=== PATIENT | male | born 1945 | race Caucasian/White ===

== ENCOUNTER 2017-01-08 02:21 | Inpatient (IN) ==
[2017-01-08] MEDS ORDERED: 0.9 % Sodium Chloride 1,000 ML IVC SCH (02:30)
--- NOTE | 2017-01-08 02:31 | Internal Med History&Physical ---
Date of Encounter: 01/08/17 Time of Encounter: 02:28 Assessment and Plan (1) Gastroenteritis Current visit: Yes Status: Acute Is having some tenderness in the right lower quadrant. CT scan of the abdomen and pelvis with oral contraceptives to be performed. He denies any severe abdominal pain that would suggest ischemic bowel. However this is in the differential. Will start empirically on Flagyl. Hydrate. Clear liquid diet. Follow CT results of the abdomen and pelvis (2) Non-ST elevation myocardial infarction (NSTEMI), type 2 Current visit: Yes Status: Acute Denies any chest pain. Electrocardiogram without any ST segment shifts. 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 Will continue aspirin beta blockers. Cardiology was notified and will follow the patient. Serial cardiac markers (3) SCOOTER (acute kidney injury) Current visit: Yes Status: Acute Gentle hydration. Watch for signs of overload. He has ischemic cardiomyopathy (4) Diabetes mellitus type 2, insulin dependent Current visit: Yes Status: Acute Sliding scale insulin every 4 hours Internal Medicine - H&P: HPI Chief complaint: diarrhea History of present illness: Mr. Price is a 71 year old male patient with multiple medical problems including coronary artery disease status post CABG 2 years ago, ischemic cardiomyopathy, diabetes mellitus, chronic kidney disease stage IV, was transferred from an outside emergency room after he had presented there with the main complain of diarrhea and weakness. For the past 4 days patient has been having watery diarrhea blackish color approximately 10 bowel movements daily, in addition to nausea nonbloody nonbilious, vomiting, and chills. Patient was getting very weak. He has noted abdominal pain only when he coughs mainly in the right lower quadrant. No sick contexts or recent travel. No recent antibiotic use. He denies any chest pain. Past Med Surg Social Fam HX - Past Medical History Medical history: arthritis, CHF, coronary artery disease, diabetes, hyperlipidemia, hypertension, renal disease Psychiatric history: no psych history - Past Surgical History Surgical History: cholecystectomy, coronary bypass (CABG) - Social History Smoking Status: Former smoker Smokeless Tobacco Status: No Alcohol use: none Drug use: none - Family History Mother Cause of : Heart attack Hx Family Cardiac Disorders: Yes (Heart attack) Hx Family Endocrine Disorder: Yes (DM) Father Hx Family Cardiac Disorders: Yes (Heart attack) Hx Family Cancer: Yes (lung cancer) Internal Medicine - H&P: Meds Allergies ragweed pollen Allergy (Verified 03/04/16 13:14) Cough All Systems PM: A 10-system review of systems was performed and is negative for pertinent findings except as documented above in the HPI. Review of systems: 10 point assistances negative for HPI - Constitutional Vitals: Temp Pulse Resp BP Pulse Ox 98.9 F 109 17 135/84 96 01/08/17 02:02 01/08/17 02:02 01/08/17 02:02 01/08/17 02:02 01/08/17 02:02 Exam: Gen.: patient is alert oriented times 3 not in distress. Cardiac: normal S1 S2 no additional sounds or murmurs chest: fair air entry. no active wheezing. No crackles or bronchial breathing. abdomen: soft nontender nondistended normal bowel sounds neuro: no focal deficit
[2017-01-08] MEDS: MetroNIDAZOLE 500 MG/100 ML 500 MG/100 ML BAG IVPB SCH ×3 (02:56→20:10)
[2017-01-08 03:55] LABS: Hematocrit 33.5 % (37.5-50.1); Hemoglobin 11.1 g/dL (12.9-16.9); Immature Granulocytes % 0.6 % (0-4); Immature Platelets 2.2 % (1.1-6.1); Lymphocytes # 0.3 K/mcL (0.6-4.6); Mean Corpuscular HGB Conc 33.1 g/dL (31.6-35.5); Mean Corpuscular Hemoglobin 28.7 pg (28.0-33.3); Mean Corpuscular Volume 86.6 fL (83.0-100.0); Mean Platelet Volume 10.9 fL (9.4-12.4); Monocytes # 0.2 K/mcL (0.0-1.3); Monocytes % 9.7 %; Neutrophils # 1.3 K/mcL (1.6-8.9); Red Blood Count 3.87 M/mcL (4.19-5.50); Red Cell Distribution Width 13.8 % (11.5-14.5); Segmented Neutrophils % 72.7 %
[2017-01-08 04:07] LABS: Albumin 2.8 g/dL (3.5-5.0); Albumin/Globulin Ratio 0.9 (1.1-2.2); Bilirubin,Total 0.3 mg/dL (0.2-1.2); Calcium 7.6 mg/dL (8.6-10.8); Globulin 3.2 g/dL (2.4-3.5); Magnesium 1.5 mg/dL (1.6-2.6); Potassium 3.8 mEq/L (3.5-4.5)
[2017-01-08 04:14] LABS: Platelet Count 60 K/mcL (140-400)
[2017-01-08 04:16] LABS: Platelet Estimate Decreased (Normal)
[2017-01-08] MEDS ORDERED: Magnesium Sulfate 2 GM in D5% in Water 100 ML IVPB ONE (04:25)
[2017-01-08] MEDS: Insulin LISPRO 300 UNITS/3 ML VIAL SQ SCH ×5 (04:42→20:16)
[2017-01-08] MEDS: Piperacillin/Tazobactam 3.375 GM in D5% in Water (Mini-Bag+) 100 ML IVPB SCH ×3 (04:42→16:58)
--- NOTE | 2017-01-08 08:22 | Cardiology Consult Note ---
Date of Encounter: 01/08/17 Time of Encounter: 08:20 Assessment and Plan (1) Elevated troponin Current Visit: Yes Status: Acute Mild troponin elevation at 0.30 in the setting of renal failure. Demand ischemia. Continue medical management. Continue Plavix, statin, and bb. Restart plavix once able from GI standpoint. (2) CAD (coronary artery disease) Current Visit: Yes Status: Acute H/o 2 vessel CAD. Continue plavix, statin, and bb. He says he does not take asa d/t his CKD. Qualifiers: Coronary Disease-Associated Artery/Lesion type: [place] artery [place] vs. transplanted heart: [place] heart Associated angina: without angina Qualified Code(s): I25.10 - Atherosclerotic heart disease of [place] coronary artery without angina pectoris (3) Ischemic cardiomyopathy Current Visit: Yes Status: Acute Known ischemic cardiomyoapthy. EF 29.3 % on MUGA scan 02/2016. Declined ICD in the past. Currently dehydrated d/t diarrhea. Monitor closely with IV fluid hydration. Hold lasix for now. Restart toprol XL. No rigo-inhibitor d/t SCOOTER. Discussion w patient/family: The assessment and plan as outlined above was discussed with the patient and/or family members who expressed understanding and agreement. All questions were answered. Thank you for involving us in the care of your patient. Please call with any questions. History of Present Illness Consult date: 01/08/17 Requesting physician: Jer Baez Consult reason: Elevated troponin Chief complaint: diarrhea, weakness History of present illness: Mr. Price is a 71 year old male with a history of CAD status post CABG 3 vessels, ischemic cardiomyopathy, CKD, diabetes type II, HTN, and HLD who presented with the c/o diarrhea and weakness for 5 days. Cardiology consulted for elevated troponin at 0.30. Initial workup reveals acute on chronic kidney disease with creatinine up to 4.25. Baseline is 2.1-3.2. CT of the abdomen showed no acute findings. There was liquid stool in the colon seen that was consistent with diarrhea. Bilateral kidney cysts seen. He denies chest pain or SOB. Denies orthopnea, PND, or edema. Recent cardiac testing: MUGA scan 03/24/16: EF 29.3 %. TTE03/04/16: Unable to evaluate LV function. Poor study. Past Med Surg Social Fam HX - Past Medical History Medical history: arthritis, CHF, coronary artery disease, diabetes, hyperlipidemia, hypertension, renal disease Psychiatric history: no psych history - Past Surgical History Surgical History: cholecystectomy, coronary bypass (CABG) - Social History Smoking Status: Former smoker Smokeless Tobacco Status: No Alcohol use: none Drug use: none - Family History Mother Cause of : Heart attack Hx Family Cardiac Disorders: Yes (Heart attack) Hx Family Endocrine Disorder: Yes (DM) Father Hx Family Cardiac Disorders: Yes (Heart attack) Hx Family Cancer: Yes (lung cancer) Medications and Allergies Allergies ragweed pollen Allergy (Verified 03/04/16 13:14) Cough All Systems Review: A 10-system review of systems was performed and is negative for pertinent findings except as documented above in the HPI. Physical Examination Vital Signs, Last 4 Hours Temp Pulse Resp BP Pulse Ox 01/08/17 08:08 98.7 F 95 17 149/76 94 General: Conversant, No Apparent Distress HEENT: Atraumatic, Normocephaly, Mucus Membranes Moist Neck: No JVD, Normal carotid pulses Cardiac: Reg Rate and Rhythm, Normal S1 and S2, No Murmur Lungs: Normal Breath Sounds, No Wheeze, Rales, Rhonchi Neuro: Alert and responsive, No focal deficits noted Abdomen: Soft, Non-Tender Skin: No rashes noted on visualized skin Musculoskeletal: No Chest Wall Tenderness Extremities: No Clubbing, No Cyanosis, No Edema, Normal Pulses Results 01/08/17 03:39 01/08/17 03:39 Lab Results 01/08/17 01/08/17 01/08/17 03:39 03:39 03:39 WBC 1.8 L Hgb 11.1 L Hct 33.5 L Plt Count 60 L Sodium 135 L Potassium 3.8 Chloride 112 H Carbon Dioxide 10 L* BUN 62 H Creatinine 4.25 H Glucose 190 H Calcium 7.6 L Magnesium 1.5 L Total Bilirubin 0.3 AST 26 ALT 28 Alkaline Phosphatase 88 Troponin I 0.30 H* - Imaging and Cardiology Echo: report reviewed - EKG Interpretation EKG results cardiology: personally reviewed Consult Discharge Plan - Plan Referrals: Balaji Verduzco DO [Primary Care Provider] -
[2017-01-08] MEDS: Ringers Solution, Lactated 1,000 ML IVC SCH (08:53)
[2017-01-08] MEDS: Pantoprazole 40 MG VIAL IVP SCH (08:53)
[2017-01-08] MEDS ORDERED: Metoprolol XL (24 HR) Succ 25 MG TAB.ER.24H PO SCH (09:00)
--- NOTE | 2017-01-08 10:16 | Event Note ---
Date of Encounter: 01/08/17 Time of Encounter: 10:16 71-year-old male with history of CAD, diabetes, CK-MB, admitted with acute diarrhea and dehydration. Patient was noted to have slight troponin elevation due to which he was transferred from [place] [facility]. Patient seen and examined at bedside. Reports continued diarrhea but no nausea , emesis, abdominal pain, chest pain or shortness of breath. Chest-S1, S2 heard. Lungs are clear to auscultation. Abdomen-soft, obese, nontender Reviewed labs-serum troponin noted to be around 0.3, creatinine 4.2, magnesium 1.5, bicarbonate 10 Acute diarrhea-likely viral enteritis. Stool WBC, GI panel pending. CT abdomen /pelvis shows liquid stool in the colon but no other acute abnormality. Continue IV hydration and supportive care. When necessary loperamide. Continue IV Zosyn and Flagyl for now. Likely acute kidney injury on CKD- review of previous labs show that patient is creatinine has been worsening over the last few months with the last reading around 3. Currently noted to be around 4.3. Continue IV hydration and monitor closely. We will consider nephrology consult as needed. Avoid nephrotoxic agents. Non-anion gap metabolic acidosis-due to see daily and ongoing diarrhea. We will change fluids to lactated Ringer's due to hyperchloremic acidosis. Continue supportive care, hold off on bicarbonate drip at this time. We will consult nephrology if there is no improvement in serum bicarbonate. Elevated troponin-cardiology consult appreciated. Troponin leak is likely due to demand ischemia due to diarrhea and dehydration. Recommend outpatient follow -up. Continue Plavix, beta kaylee.
[2017-01-08 11:13] LABS: Calcium 7.4 mg/dL (8.6-10.8); Potassium 3.6 mEq/L (3.5-4.5)
[2017-01-08 16:31] LABS: Calcium 7.5 mg/dL (8.6-10.8); Potassium 3.5 mEq/L (3.5-4.5)
[2017-01-08 18:17] LABS: Adenovirus F 40/41 PCR Not detected (Not detect); Astrovirus PCR Not detected (Not detect); C.difficile Toxin A/B by PCR Not detected (Not detect); Campylobacter by PCR Not detected (Not detect); Cryptosporidium by PCR Not detected (Not detect); Cyclospora cayetanensis PCR Not detected (Not detect); E. coli O157 by PCR Not detected (Not detect); Entamoeba histolytica PCR Not detected (Not detect); Enteroaggregative E.coli(EAEC) Not detected (Not detect); Enteropathogenic E.coli(EPEC) Not detected (Not detect); Enterotoxigenic E.coli (ETEC) Not detected (Not detect); Giardia lamblia PCR Not detected (Not detect); Norovirus GI/GII PCR Not detected (Not detect); Plesiomonas shigelloides PCR Not detected (Not detect); Rotavirus A PCR Not detected (Not detect); Salmonella PCR Not detected (Not detect); Sapovirus PCR Not detected (Not detect); Shig/EnteroinvasiveE coli EIEC Not detected (Not detect); Shigalike tox-prod E coli STEC Not detected (Not detect); Vibrio PCR Not detected (Not detect); Vibrio cholerae PCR Not detected (Not detect); Yersinia enterocolitica PCR Not detected (Not detect)
[2017-01-08 22:04] LABS: Calcium 7.4 mg/dL (8.6-10.8); Potassium 3.5 mEq/L (3.5-4.5)
[2017-01-09] MEDS: Insulin LISPRO 300 UNITS/3 ML VIAL SQ SCH ×6 (00:04→21:31)
[2017-01-09] MEDS: Ringers Solution, Lactated 1,000 ML IVC SCH (02:00)
[2017-01-09] MEDS: MetroNIDAZOLE 500 MG/100 ML 500 MG/100 ML BAG IVPB SCH ×2 (02:00→11:39)
[2017-01-09 03:38] LABS: Eosinophils % 0.6 %; Hemoglobin 10.8 g/dL (12.9-16.9)
[2017-01-09 03:39] LABS: Hematocrit 32.3 % (37.5-50.1); Immature Granulocytes % 0.6 % (0-4); Lymphocytes # 0.4 K/mcL (0.6-4.6); Lymphocytes % 26.9 %; Mean Corpuscular HGB Conc 33.4 g/dL (31.6-35.5); Mean Corpuscular Hemoglobin 28.6 pg (28.0-33.3); Mean Corpuscular Volume 85.7 fL (83.0-100.0); Mean Platelet Volume 10.2 fL (9.4-12.4); Monocytes # 0.2 K/mcL (0.0-1.3); Monocytes % 9.4 %; Red Blood Count 3.77 M/mcL (4.19-5.50); Red Cell Distribution Width 13.7 % (11.5-14.5); Segmented Neutrophils % 62.5 %
[2017-01-09 03:48] LABS: Platelet Count 55 K/mcL (140-400)
[2017-01-09 03:56] LABS: Potassium 3.5 mEq/L (3.5-4.5)
[2017-01-09 03:57] LABS: Albumin 2.6 g/dL (3.5-5.0); Calcium 7.5 mg/dL (8.6-10.8); Phosphorous 4.3 mg/dL (2.3-4.7)
[2017-01-09] MEDS: Piperacillin/Tazobactam 3.375 GM in D5% in Water (Mini-Bag+) 100 ML IVPB SCH (03:59)
[2017-01-09] MEDS: Pantoprazole 40 MG VIAL IVP SCH (07:45)
[2017-01-09] MEDS: Metoprolol XL (24 HR) Succ 50 MG TAB.ER.24H PO SCH (07:45)
[2017-01-09] MEDS ORDERED: Sodium Bicarbonate 150 MEQ in D5% in Water 1,000 ML IVC SCH (11:30)
--- NOTE | 2017-01-09 11:48 | Internal Med Progress Note ---
Date of Encounter: 01/09/17 Time of Encounter: 11:45 - Assessment and plan (1) Gastroenteritis Current Visit: Yes Status: Acute Assessment and plan: Patient continues to have diarrhea with no abdominal pain or vomiting or leukocytosis. Possibly viral enteritis. Stool WBC positive but GI serology panel otherwise negative. No risk factors for C. difficile infection. Start loperamide, continue IV hydration and supportive care. (2) Metabolic acidosis Current Visit: Yes Status: Acute Assessment and plan: Noted to have acute on chronic non-anion gap metabolic acidosis in the setting of chronic kidney disease, normal saline infusion, ongoing GI losses with diarrhea. Discussed with nephrology, agree with IV bicarbonate infusion at this time. Full consult to follow. (3) SCOOTER (acute kidney injury) Current Visit: Yes Status: Acute Assessment and plan: Serum creatinine noted to be worsening over the last few months, likely acute kidney injury due to current dehydration along with worsening of chronic kidney disease. Avoid new nephrotoxic agents and continue to monitor serum creatinine closely. (4) Elevated troponin Current Visit: Yes Status: Acute Assessment and plan: Patient is noted to have slight troponin leak around 0.3 with no significant EKG changes or chest pain. Cardiology consult appreciated, this is likely demand ischemia due to dehydration and underlying CKD. Continue telemetry monitoring along with Plavix and beta kaylee. Patient does not take aspirin due to chronic kidney disease. (5) CKD (chronic kidney disease) Current Visit: Yes Status: Chronic Qualifiers: Chronic kidney disease stage: stage 4 (severe) Qualified Code(s): N18.4 - Chronic kidney disease, stage 4 (severe) (6) Diabetes mellitus type 2, insulin dependent Current Visit: Yes Status: Chronic Assessment and plan: Accu-Chek blood glucose monitoring with sliding scale insulin. Diabetic diet as tolerated. (7) CAD (coronary artery disease) Current Visit: Yes Status: Chronic Qualifiers: Coronary Disease-Associated Artery/Lesion type: [place] artery [place] vs. transplanted heart: [place] heart Associated angina: without angina Qualified Code(s): I25.10 - Atherosclerotic heart disease of [place] coronary artery without angina pectoris (8) Ischemic cardiomyopathy Current Visit: Yes Status: Chronic Assessment and plan: Continue home medications, hold Lasix for now. - Subjective Interval history: Feels tired, reports generalized weakness and bodyaches; no nausea, vomiting, abdominal pain; continues to have at least 12-15 episodes of watery diarrhea per day; - Constitutional Vitals: Temp Pulse Resp BP Pulse Ox 98.1 F 75 16 130/57 95 01/09/17 11:10 01/09/17 11:10 01/09/17 11:10 01/09/17 11:10 01/09/17 11:10 General appearance: Present: A&O X 3, answers questions appropriately - Respiratory Respiratory exam: Present: CTAB, wheezes (mild end-expiratory wheezing at left base). Absent: accessory muscle use, rales, rhonchi - Cardiovascular Cardiovascular exam: Present: RRR, +S1, +S2. Absent: diastolic murmur, gallop, rubs, systolic murmur - GI/Abdominal GI/Abdominal exam: Present: normal bowel sounds, soft, no peritoneal signs. Absent: distended, tenderness - Extremities Exam Extremities exam: Present: full ROM, warm, radial pulses palpable and symetrical. Absent: calf tenderness, cyanotic, pedal edema - Neurological Exam Neurological exam: Present: CN II-XII intact, oriented X3, no focal deficits. Absent: pronater drift, facial droop, speech deficit Internal Medicine: Result - Labs CBC & Chem 7: 01/09/17 03:25 01/09/17 03:25 Labs: Short CBC 01/09/17 Range/Units 03:25 WBC 1.6 L (4.3-11.1) K/mcL Hgb 10.8 L (12.9-16.9) g/dL Hct 32.3 L (37.5-50.1) % Plt Count 55 L (140-400) K/mcL Neutrophils # 1.0 L (1.6-8.9) K/mcL BMP 01/08/17 01/08/17 01/09/17 15:53 21:24 03:25 Sodium 134 L 135 L 136 Potassium 3.5 3.5 3.5 Chloride 111 H 111 H 115 H Carbon Dioxide 12 L 13 L 11 L BUN 61 H 59 H 56 H Creatinine 4.35 H 4.29 H 4.19 H Glucose 183 H 145 H 137 H Calcium 7.5 L 7.4 L 7.5 L Liver Function 01/09/17 Range/Units 03:25 Albumin 2.6 L (3.5-5.0) g/dL Consult Discharge Plan - Plan Referrals: Balaji Verduzco DO [Primary Care Provider] -
--- NOTE | 2017-01-09 11:59 | Nephrology Consult Note ---
Date of Encounter: 01/09/17 Time of Encounter: 12:00 Assessment and Plan (1) SCOOTER (acute kidney injury) Current Visit: Yes Status: Acute Non-oliguric SCOOTER with acute on chronic metaolic acidosis. Worsened by both diarrhea and dilutional acidosis from the 0.9% saline. Agree with stopping the LR and will implement a bicarb gtt. He is not hyperkalemic currently, though he has a long hx of it. Which lead to stopping his prior JOSE L (Ramipril), which he was taking for known proteinuria. No urgent indications for WEB OPERATIONS LEAD today, but in the past, he has voiced that he's more interested in PD rather than HD. Continue to follow a renal protective strategy. Thank you for consulting [facility]. (2) Chronic kidney disease (CKD), stage IV (severe) Current Visit: Yes Status: Chronic (3) Proteinuria Current Visit: Yes Status: Chronic Qualifiers: Proteinuria type: persistent Qualified Code(s): R80.1 - Persistent proteinuria, unspecified (4) Diabetes mellitus type 2, insulin dependent Current Visit: Yes Status: Chronic (5) Gastroenteritis Current Visit: Yes Status: Acute (6) Metabolic acidosis Current Visit: Yes Status: Acute History of Present Illness - Reason for Consult Consult date: 01/09/17 Acute Kidney Injury, metabolic acidosis Requesting physician: Martha Paul - Chief Complaint Met acidosis with SCOOTER on CKD IV - History of Present Illness 71 y/o WM with a pmh of T2DM for 20+ yr, CAD and HTN and et al who presented with several days of diarrhea. He recently saw me in my CKD clinic and we discussed his dialysis options. He had voiced interest in PD rather than HD. Was taken off Ramipril several months ago due to recurrent hyperkalemia. He had been treated with 0.9% saline for the volume depletion/SCOOTER from diarrhea, but yet his acidosis continued to worsen with hyperchloremia. 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 He said that last week, he had a leaking pipe under his house and thinks there may have been label sewer water leaking too. He did fix the leak but later developed diarrhea. He denied having contacts with diarrhea. He is still having diarrhea several times per day. Denied abd pain or F/C, rash or blooding diarrhea. Past Med Surg Social Fam HX - Past Medical History Medical history: arthritis, CHF, coronary artery disease, diabetes, hyperlipidemia, hypertension, renal disease Psychiatric history: no psych history - Past Surgical History Surgical History: cholecystectomy, coronary bypass (CABG) - Social History Smoking Status: Former smoker Smokeless Tobacco Status: No Alcohol use: none Drug use: none - Family History Mother Cause of : Heart attack Hx Family Cardiac Disorders: Yes (Heart attack) Hx Family Endocrine Disorder: Yes (DM) Father Hx Family Cardiac Disorders: Yes (Heart attack) Hx Family Cancer: Yes (lung cancer) Medications and Allergies Atorvastatin [Lipitor] 40 mg PO HS 01/08/17 [History] Clopidogrel [Plavix] 75 mg PO DAILY 01/08/17 [History] Furosemide [Lasix] 40 mg PO BID 01/08/17 [History] Insulin ASPART [NovoLOG] 15 unit SQ TID 01/08/17 [History] Insulin Glargine [Lantus] 30 unit SQ HS 01/08/17 [History] Loratadine [Claritin] 10 mg PO DAILY 01/08/17 [History] Metoprolol XL (24 HR) Succ [Toprol XL] 100 mg PO DAILY 01/08/17 [History] Nitroglycerin [Nitrostat] 0.4 mg SL Q5M PRN 01/08/17 [History] Allergies ragweed pollen Allergy (Verified 01/08/17 11:45) Cough Review of Systems All Systems: reviewed and no additional remarkable complaints except as stated Exam - Vital Signs Vital signs: Initial Vital Signs Temp Pulse Resp BP Pulse Ox 98.9 F 109 17 135/84 96 01/08/17 02:02 01/08/17 02:02 01/08/17 02:02 01/08/17 02:02 01/08/17 02:02 Vital Signs - Last 8 Hours Temp Pulse Resp BP Pulse Ox 01/09/17 11:10 98.1 F 75 16 130/57 95 01/09/17 07:52 97 01/09/17 07:12 98.6 F 80 16 158/64 97 Intake and Output 01/08/17 01/09/17 01/09/17 23:59 07:59 15:59 Intake Total 320 / 320 1200 / 1200 600 / 600 Balance 320 / 320 1200 / 1200 600 / 600 Intake: IV Fluids 100 / 100 1200 / 1200 Lactated Ringers 1,000 ML 1000 / 1000 @ 60 mls/hr IVC .[id number] [facility] Rx#:[id number] Flagyl Premix 500 MG/100 200 / 200 ML 500 mg In 100 ml @ 100 mls/hr IVPB Q8H [facility] Rx#: [id number] Zosyn 3.375 GM In 100 / 100 Dextrose 5% (Minibag+) 100 ML 100 ML @ 25 mls/hr IVPB Q12H [facility] Rx#: [id number] Oral 220 / 220 600 / 600 Other: Meal Dinner Breakfast Percent of Meal Consumed 0% Stool Size Small Stool Consistency loose Stool Color Brown Green # Voids 1 # Bowel Movements 1 Weight 118.025 kg Blood Glucose* 130 129 162 Patient Weight 01/09/17 23:59 Weight 118.025 kg - General Appearance General appearance: well-developed, well-nourished, obese, fatigue EENT: ATNC, PERRL, mucous membranes dry Neck: supple Respiratory: clear Cardiology: no edema, regular rate, regular rhythm, normal S1, normal S2 Gastrointestinal: normoactive bowel sounds, no tenderness Integumentary: no rash, warm and dry Neurologic: no focal deficit, no asterixis, alert and oriented x3 Musculoskeletal: no deformities, no erythema, no cyanosis Psychiatric: mood/affect appropriate, cooperative Results - Lab Results 01/09/17 03:25 01/09/17 03:25 Most recent lab results Calcium 7.5 mg/dL (8.6-10.8) L 01/09/17 03:25 Phosphorus 4.3 mg/dL (2.3-4.7) 01/09/17 03:25 Magnesium 1.5 mg/dL (1.6-2.6) L 01/08/17 03:39 I reviewed the above auto generated data including clinic and hospital progress notes, labs, meds, vitals, imaging and etc. Consult Discharge Plan - Plan Referrals: Balaji Verduzco DO [Primary Care Provider] -
[2017-01-10] MEDS: Insulin LISPRO 300 UNITS/3 ML VIAL SQ SCH ×6 (00:57→21:12)
[2017-01-10 05:59] LABS: Basophils % 0.5 %; Eosinophils # 0.1 K/mcL (0.0-0.6); Eosinophils % 2.6 %; Hematocrit 31.2 % (37.5-50.1); Hemoglobin 10.6 g/dL (12.9-16.9); Immature Granulocytes % 0.5 % (0-4); Lymphocytes # 0.7 K/mcL (0.6-4.6); Mean Corpuscular Hemoglobin 28.6 pg (28.0-33.3); Mean Corpuscular Volume 84.3 fL (83.0-100.0); Mean Platelet Volume 10.7 fL (9.4-12.4); Monocytes # 0.1 K/mcL (0.0-1.3); Monocytes % 6.9 %; Red Cell Distribution Width 13.6 % (11.5-14.5); Segmented Neutrophils % 52.5 %
[2017-01-10 06:04] LABS: Platelet Count 60 K/mcL (140-400)
[2017-01-10 06:06] LABS: Bilirubin,Urine Negative (Negative); Blood,Urine Moderate (Negative); Clarity,Urine Clear (Clear); Color,Urine Yellow (Yellow); Glucose,Urine (UA) 100 mg/dL (Normal); Ketones,Urine Negative (Negative); Leukocyte Esterase,Urine Negative (Negative); Nitrite,Urine Negative (Negative); Protein,Urine >=1000 mg/dL (Neg-Trace); Specific Gravity,Urine 1.016 (1.010-1.025); Urobilinogen,Urine Normal (Normal)
[2017-01-10 06:09] LABS: Bacteria,Urine None Seen per hpf (None-Few); Hyaline Casts,Urine None Seen per lpf (None-Few); Squamous Epithelial Cell,Urine Many per lpf (None-Few); WBC,Urine 0-3 per hpf (0-3)
[2017-01-10 06:14] LABS: Albumin 2.5 g/dL (3.5-5.0); Calcium 7.3 mg/dL (8.6-10.8); Phosphorous 3.4 mg/dL (2.3-4.7); Potassium 3.3 mEq/L (3.5-4.5); Uric Acid 7.1 mg/dL (3.5-7.2)
[2017-01-10 06:26] LABS: Platelet Estimate Decreased (Normal); Reactive Lymphocytes Present (Not Present)
[2017-01-10] MEDS: Pantoprazole 40 MG VIAL IVP SCH (08:15)
[2017-01-10] MEDS: Metoprolol XL (24 HR) Succ 50 MG TAB.ER.24H PO SCH (08:15)
[2017-01-10] MEDS ORDERED: Ondansetron 4 MG/2 ML VIAL IVP PRN (08:19)
[2017-01-10] MEDS ORDERED: Potassium Chloride Elixir 20 MEQ/15 ML UDC PO ONE (08:54)
--- NOTE | 2017-01-10 09:29 | Internal Med Progress Note ---
Date of Encounter: 01/10/17 Time of Encounter: 09:27 - Assessment and plan (1) Gastroenteritis Current Visit: Yes Status: Acute Assessment and plan: Improving diarrhea; continue supportive care and PRN Loperamide. Soft diet as tolerated. Possibly viral enteritis. Stool WBC positive but GI serology panel otherwise negative. No risk factors for C. difficile infection. (2) Metabolic acidosis Current Visit: Yes Status: Acute Assessment and plan: Acute on chronic non-anion gap metabolic acidosis in the setting of chronic kidney disease, normal saline infusion, ongoing GI losses with diarrhea. Serum bicarbonate improved to 17 today. Off bicarbonate drip. Nephrology follow-up noted, plan to start oral sodium bicarbonate. (3) SCOOTER (acute kidney injury) Current Visit: Yes Status: Acute Assessment and plan: Serum creatinine stable at this time, at new baseline. Nephrology follow-up noted, likely initiation of dialysis as an outpatient. Avoid new nephrotoxic agents and continue to monitor serum creatinine closely. (4) Elevated troponin Current Visit: Yes Status: Resolved Assessment and plan: Patient is noted to have slight troponin leak around 0.3 with no significant EKG changes or chest pain. Cardiology consult appreciated, this is likely demand ischemia due to dehydration and underlying CKD. Continue telemetry monitoring along with Plavix and beta kaylee. Patient does not take aspirin due to chronic kidney disease. (5) CKD (chronic kidney disease) Current Visit: Yes Status: Chronic Qualifiers: Chronic kidney disease stage: stage 4 (severe) Qualified Code(s): N18.4 - Chronic kidney disease, stage 4 (severe) (6) Diabetes mellitus type 2, insulin dependent Current Visit: Yes Status: Chronic Assessment and plan: Accu-Chek blood glucose monitoring with sliding scale insulin. Diabetic diet as tolerated. (7) CAD (coronary artery disease) Current Visit: Yes Status: Chronic Qualifiers: Coronary Disease-Associated Artery/Lesion type: [place] artery [place] vs. transplanted heart: [place] heart Associated angina: without angina Qualified Code(s): I25.10 - Atherosclerotic heart disease of [place] coronary artery without angina pectoris (8) Ischemic cardiomyopathy Current Visit: Yes Status: Chronic Assessment and plan: Continue home medications, hold Lasix for now. Discontinued IV hydration, monitor for signs of volume overload. Plan to resume Lasix at the time of discharge. (9) Leukopenia Current Visit: Yes Status: Acute Assessment and plan: Uncertain etiology. Does not seem to be septic with any clear source of infection. WBC count and platelet count from August 2016 noted to be within normal limits. Hematology consult. Qualifiers: Leukopenia type: other Qualified Code(s): D72.818 - Other decreased white blood cell count (10) Thrombocytopenia Current Visit: Yes Status: Acute Assessment and plan: Uncertain etiology. Plan as above for leukopenia. - Subjective Interval history: Improved diarrhea, still has a few bowel movements but much improved; some nausea this morning, now subsided, no vomiting/abdominal pain; - Constitutional Vitals: Temp Pulse Resp BP Pulse Ox 98.1 F 69 17 120/61 94 01/10/17 07:11 01/10/17 07:11 01/10/17 07:11 01/10/17 07:11 01/10/17 08:42 General appearance: Present: A&O X 3, answers questions appropriately - Respiratory Respiratory exam: Present: CTAB. Absent: accessory muscle use, rales, rhonchi, wheezes - Cardiovascular Cardiovascular exam: Present: RRR, +S1, +S2. Absent: diastolic murmur, gallop, rubs, systolic murmur - GI/Abdominal GI/Abdominal exam: Present: normal bowel sounds, soft (obese), no peritoneal signs. Absent: distended, tenderness - Extremities Exam Extremities exam: Present: full ROM, warm, radial pulses palpable and symetrical. Absent: calf tenderness, cyanotic, pedal edema Internal Medicine: Result - Labs CBC & Chem 7: 01/10/17 04:42 01/10/17 04:42 Labs: Short CBC 01/10/17 Range/Units 04:42 WBC 1.9 L (4.3-11.1) K/mcL Hgb 10.6 L (12.9-16.9) g/dL Hct 31.2 L (37.5-50.1) % Plt Count 60 L (140-400) K/mcL Neutrophils # 1.0 L (1.6-8.9) K/mcL BMP 01/10/17 04:42 Sodium 140 Potassium 3.3 L Chloride 112 H Carbon Dioxide 17 L BUN 49 H Creatinine 4.03 H Glucose 131 H Calcium 7.3 L Liver Function 01/10/17 Range/Units 04:42 Albumin 2.5 L (3.5-5.0) g/dL Urine 01/10/17 Range/Units 05:11 Urine Color Yellow (Yellow) Urine Clarity Clear (Clear) Urine pH 6.0 (5.0-8.0) pH Units Ur Specific [place] 1.016 (1.010-1.025) Urine Protein >=1000 H (Neg-Trace) mg/dL Urine Glucose (UA) 100 H (Normal) mg/dL - VTE Documentation of Mechanical Device: Graduated compression elastic hosiery Consult Discharge Plan - Plan Referrals: Balaji Verduzco DO [Primary Care Provider] - 01/17/17 12:40 pm (Please follow up as schedule..)
--- NOTE | 2017-01-10 11:32 | Nephrology Progress Note ---
Date of Encounter: 01/10/17 Time of Encounter: 11:30 - Assessment and Plan (1) Gastroenteritis Current Visit: Yes Status: Acute Diarrhea is improving. Per primary team. He is tolerating some Po intake. (2) SCOOTER (acute kidney injury) Current Visit: Yes Status: Acute SCOOTER on CKD. Baseline renal function is Stage 4. He is denying uremic symptoms at this time. His nausea is likely related to his gastroenteritis and he states it is improving. (3) Diabetes mellitus type 2, insulin dependent Current Visit: Yes Status: Chronic Per primary team. (4) Metabolic acidosis Current Visit: Yes Status: Acute Improved with iv bicarb. Will start oral bicarbonate. Likely multifactorial, but mostly secondary to diarrhea. (5) Chronic kidney disease (CKD), stage IV (severe) Current Visit: Yes Status: Chronic With underlying progression. Per Dr. Kenney's note patient would like CAPD if dialysis is needed. Subjective Principal diagnosis: SCOOTER /CKD4 Interval history: Mr. Price feels better this am. He tolerated his breakfast. He states his diarrhea is improving. His ROS otherwise seems stable or negative. Objective - Vital Signs Vital signs: Vital Signs Temp Pulse Resp BP Pulse Ox 01/10/17 11:16 97.9 F 76 18 126/66 94 01/10/17 08:42 94 01/10/17 07:11 98.1 F 69 17 120/61 94 01/10/17 04:58 99.8 F H 80 16 124/69 95 01/10/17 00:36 98.9 F 60 16 103/61 95 01/09/17 20:51 98.7 F 80 94 150/67 01/09/17 19:46 98 01/09/17 15:50 98.3 F 74 16 124/67 97 Intake and Output 01/09/17 01/10/17 01/10/17 23:59 07:59 15:59 Output Total 200 / 200 0 / 0 Balance -200 / -200 0 / 0 Output: Urine 200 / 200 0 / 0 Other: Meal Breakfast Weight 119.204 kg Blood Glucose* 153 140 171 Patient Weight 01/10/17 23:59 Weight 119.204 kg - General Appearance General appearance: Present: well-developed, well-nourished, obese EENT: Present: ATNC Neck: Present: supple Respiratory: Present: clear Cardiology: Present: no edema, regular rate, regular rhythm Gastrointestinal: Present: no tenderness, obese Integumentary: Present: warm and dry Neurologic: Present: alert and oriented x3 Musculoskeletal: Present: no cyanosis Psychiatric: Present: mood/affect appropriate - Lab 01/10/17 04:42 01/10/17 04:42 Most recent lab results Calcium 7.3 mg/dL (8.6-10.8) L 01/10/17 04:42 Phosphorus 3.4 mg/dL (2.3-4.7) 01/10/17 04:42 Magnesium 1.5 mg/dL (1.6-2.6) L 01/08/17 03:39 - VTE Documentation of Mechanical Device: Graduated compression elastic hosiery Consult Discharge Plan - Plan Referrals: Balaji Verduzco DO [Primary Care Provider] - 01/17/17 12:40 pm (Please follow up as schedule..)
[2017-01-10 16:19] LABS: Immature Reticulocyte % 11.1 % (11.0-38.0); Retculocyte # 0.05 M/mcL (0.05-0.10); Reticulocyte % 1.3 % (1.6-2.8)
[2017-01-10 16:39] LABS: Prothrombin Time 10.8 Seconds (9.4-12.1)
--- NOTE | 2017-01-10 17:03 | Oncology Inp Consult Note ---
<Migdalia Farrell - Last Filed: 01/10/17 16:59> Date of Encounter: 01/10/17 Time of Encounter: 14:00 Assessment and Plan (1) Thrombocytopenia Problem details: Status: Acute Assessment and plan: Thrombocytopenia and leukopenia-peripheral smear indicates normal leukocyte morphology no blasts or atypical promyelocytes. Erythrocytes indicate normocytic anemia with rare schistocytes. Platelets there is no platelet clumping however from thrombocytopenias present. The cause of pancytopenia is uncertain based on the review of the blood smear. The lab tests have been ordered fibrinogen, hepatitis panel, HIV, LDH, pro-time and INR and PTT inhibitor. Pancytopenia could be related to recent infection. Dr. Byers, hematology oncology will see the patient also. - Data of Consult Patient: new to practice Consult date: 01/10/17 Requesting Physician: Martha Paul MD Primary Care Provider: Balaji Verduzco Family Provider: Dr. Ino Verduzco in [place]. - Consult Narrative Reason for consult: neutopenia and thrombocytopenia History of present illness: Mr. Price is a 71 year old male medical problems including arthritis, congestive heart failure, coronary artery disease, hyperlipidemia, hypertension , stage IV renal disease, diabetes and a history of triple bypass. He was recently admitted from an outside facility with diarrhea which has been ongoing for 4 days and progressive weakness. He reported that during that time his liquid stools were black however he has been on iron supplementation, he also reported having abdominal soreness and nausea and also chilling but denied having elevated temperature. Primary care provider is Dr. Ino Verduzco from [facility]. Patient reports that he sees cardiology at a D and on a routine basis and is followed by Dr. Spring in nephrology. We have been asked to see the patient regarding neutropenia and thrombocytopenia. At the time of admission his neutrophils were 1.8 today that it they have improved to 1.9. On 08/27/2016 in review of chart it was 6.6. Hemoglobin on admission 11.1, today 10.6, in August 1999 1711.1. Platelets at times admission were 60,000 days then dropped to 50,000 today however they have improved to 60,000 however in August 2016 are 135. In reviewing his records in [facility] 2010 his platelets were low at 130 and there was one episode in 2009 where his white blood cell count was 4.0 the other times they were within normal range. Patient was seen and examined at bedside. He reports that his diarrhea has nearly resolved and he is no longer having nausea. He denies a history of neutropenia or thrombocytopenia. Home medications include Lantus, Lipitor, Nitrostat, Lasix, NovoLog, metoprolol , Claritin and Plavix. Past Med Surg Social Fam HX - Past Medical History Medical history: arthritis, cardiomyopathy (MUGA scan in February 2016 indicate an ejection fraction of 29%.), CHF, coronary artery disease, diabetes, hyperlipidemia, hypertension, renal disease (Stage IV), other (Hypertension) Psychiatric history: no psych history - Past Surgical History Surgical History: cholecystectomy, coronary bypass (CABG) - Social History Smoking Status: Former smoker Smokeless Tobacco Status: No Alcohol use: none Drug use: none - Family History Mother Cause of : Heart attack Hx Family Cardiac Disorders: Yes (Heart attack) Hx Family Endocrine Disorder: Yes (DM) Father Hx Family Cardiac Disorders: Yes (Heart attack) Hx Family Cancer: Yes (lung cancer) - Additional Family History Additional family history: Sister with cancer of the gallbladder. Medications and Allergies Atorvastatin [Lipitor] 40 mg PO HS 01/08/17 [History] Clopidogrel [Plavix] 75 mg PO DAILY 01/08/17 [History] Furosemide [Lasix] 40 mg PO BID 01/08/17 [History] Insulin ASPART [NovoLOG] 15 unit SQ TID 01/08/17 [History] Insulin Glargine [Lantus] 30 unit SQ HS 01/08/17 [History] Loratadine [Claritin] 10 mg PO DAILY 01/08/17 [History] Metoprolol XL (24 HR) Succ [Toprol XL] 100 mg PO DAILY 01/08/17 [History] Nitroglycerin [Nitrostat] 0.4 mg SL Q5M PRN 01/08/17 [History] Allergies ragweed pollen Allergy (Verified 01/08/17 11:45) Cough All systems: reviewed and no additional remarkable complaints except as stated Constitutional: Present: as per HPI Additional comments: Reports having abdominal soreness but states that has improved. He also reports that his stool was black in color but he has been on iron supplement. Hematologic/Lymphatic: Present: easy bruising Additional comments: Has been on Plavix since his triple bypass. Oncology - Exam - Constitutional Vitals: Temp Pulse Resp BP Pulse Ox 98.1 F 71 17 142/53 93 01/10/17 15:21 01/10/17 15:21 01/10/17 15:21 01/10/17 15:21 01/10/17 15:21 General appearance: cooperative, morbidly obese, no acute distress - Head Head exam: Present: normocephalic - ENT ENT exam: Present: mucous membranes dry - Neck Neck exam: Present: normal inspection - Respiratory Respiratory exam: Present: CTAB - Cardiovascular Cardiovascular exam: Present: RRR - GI/Abdominal GI/Abdominal exam: Present: normal bowel sounds, soft (Nontender) - Extremities Exam Extremities exam: Present: normal capillary refill, normal inspection (No edema) - Neurological Exam Neurological exam: Present: alert, oriented X3 - Psychiatric Psychiatric exam: Present: normal affect, normal mood - Skin Additional comments: Skin tags noted in bilateral axilla Oncology - Results - Labs Labs: Short CBC 01/10/17 Range/Units 04:42 WBC 1.9 L (4.3-11.1) K/mcL Hgb 10.6 L (12.9-16.9) g/dL Hct 31.2 L (37.5-50.1) % Plt Count 60 L (140-400) K/mcL Neutrophils # 1.0 L (1.6-8.9) K/mcL BMP 01/10/17 04:42 Sodium 140 Potassium 3.3 L Chloride 112 H Carbon Dioxide 17 L BUN 49 H Creatinine 4.03 H Glucose 131 H Calcium 7.3 L Liver Function 01/10/17 Range/Units 04:42 Albumin 2.5 L (3.5-5.0) g/dL Urine 01/10/17 Range/Units 05:11 Urine Color Yellow (Yellow) Urine Clarity Clear (Clear) Urine pH 6.0 (5.0-8.0) pH Units Ur Specific [place] 1.016 (1.010-1.025) Urine Protein >=1000 H (Neg-Trace) mg/dL Urine Glucose (UA) 100 H (Normal) mg/dL Consult Discharge Plan - Plan Referrals: Balaji Verduzco DO [Primary Care Provider] - 01/17/17 12:40 pm (Please follow up as schedule..) <Clovis Byers - Last Filed: 01/11/17 08:34> Date of Encounter: 01/11/17 Time of Encounter: 07:30 Assessment and Plan (1) Leukopenia Status: Acute Assessment and plan: I have seen and examined Mr. Price and agree with the assessment and plan made by Ms. Farrell. I met with Mr. Price had chance review labs ordered yesterday. He is without evidence of DIC or hepatitis that could be attributed to his pancytopenia. It is likely his underlying colitis is causing bone marrow suppression and resultant pancytopenia. I am happy report his counts are stable to improving and his diarrhea has resolved. As he is feeling better, I think it is prudent for him to be discharged as seen fit by the primary team and I will schedule follow-up in 2-3 weeks in my office to follow cytopenias. Please call has a cardiac concerns or questions. My cell phone [phone] Qualifiers: Leukopenia type: other Qualified Code(s): D72.818 - Other decreased white blood cell count - Data of Consult Requesting Physician: Meera Bland MD Primary Care Provider: Balaji Verduzco - Consult Narrative History of present illness: Mr. Price is a 71 year old male Oncology - Exam - Constitutional Vitals: Temp Pulse Resp BP Pulse Ox 98.9 F 78 14 122/60 93 01/11/17 08:26 01/11/17 08:26 01/11/17 08:26 01/11/17 08:26 01/11/17 08:26 Oncology - Results - Labs Labs: Short CBC 01/11/17 Range/Units 04:58 WBC 2.1 L (4.3-11.1) K/mcL Hgb 9.9 L (12.9-16.9) g/dL Hct 29.2 L (37.5-50.1) % Plt Count 58 L (140-400) K/mcL Neutrophils # 0.8 L (1.6-8.9) K/mcL BMP 01/11/17 04:58 Sodium 141 Potassium 3.5 Chloride 114 H Carbon Dioxide 20 BUN 46 H Creatinine 3.72 H Glucose 130 H Calcium 7.3 L Liver Function 01/11/17 Range/Units 04:58 Albumin 2.3 L (3.5-5.0) g/dL
[2017-01-10 19:47] LABS: Hepatitis B Surface Antigen Nonreactive (Nonreactive); Hepatitis C Virus Antibody Nonreactive (Nonreactive)
[2017-01-11] MEDS: Insulin LISPRO 300 UNITS/3 ML VIAL SQ SCH ×3 (00:30→08:30)
[2017-01-11 05:09] LABS: Eosinophils # 0.1 K/mcL (0.0-0.6); Eosinophils % 2.9 %; Hematocrit 29.2 % (37.5-50.1); Hemoglobin 9.9 g/dL (12.9-16.9); Immature Granulocytes % 0.5 % (0-4); Lymphocytes # 1.1 K/mcL (0.6-4.6); Lymphocytes % 51.9 %; Mean Corpuscular HGB Conc 33.9 g/dL (31.6-35.5); Mean Corpuscular Hemoglobin 28.8 pg (28.0-33.3); Mean Corpuscular Volume 84.9 fL (83.0-100.0); Mean Platelet Volume 10.9 fL (9.4-12.4); Monocytes # 0.2 K/mcL (0.0-1.3); Monocytes % 7.8 %; Neutrophils # 0.8 K/mcL (1.6-8.9); Red Blood Count 3.44 M/mcL (4.19-5.50); Red Cell Distribution Width 13.6 % (11.5-14.5); Segmented Neutrophils % 36.9 %
[2017-01-11 05:10] LABS: Platelet Count 58 K/mcL (140-400)
[2017-01-11 05:23] LABS: Albumin 2.3 g/dL (3.5-5.0); Calcium 7.3 mg/dL (8.6-10.8); Phosphorous 3.6 mg/dL (2.3-4.7); Potassium 3.5 mEq/L (3.5-4.5)
[2017-01-11 05:30] LABS: Platelet Estimate Decreased (Normal)
[2017-01-11 08:27] VITALS: BP 122/60
--- NOTE | 2017-01-11 09:07 | Discharge Summary ---
Date of Encounter: 01/11/17 Time of Encounter: 08:30 - Discharge Diagnosis (1) Gastroenteritis Priority: Primary Status: Acute (2) SCOOTER (acute kidney injury) Priority: Primary Status: Acute (3) Diabetes mellitus type 2, insulin dependent Priority: Secondary Status: Chronic (4) Elevated troponin Priority: Primary Status: Resolved (5) CAD (coronary artery disease) Priority: Secondary Status: Chronic Qualifiers: Coronary Disease-Associated Artery/Lesion type: [place] artery [place] vs. transplanted heart: [place] heart Associated angina: without angina Qualified Code(s): I25.10 - Atherosclerotic heart disease of [place] coronary artery without angina pectoris (6) Metabolic acidosis Priority: Primary Status: Acute (7) Chronic kidney disease (CKD), stage IV (severe) Priority: Secondary Status: Chronic (8) Leukopenia Priority: Primary Status: Acute Qualifiers: Leukopenia type: other Qualified Code(s): D72.818 - Other decreased white blood cell count (9) Thrombocytopenia Priority: Primary Status: Acute - Discharge Medications Prescriptions: Loperamide [Imodium] 2 mg PO Q4HR PRN #30 capsule PRN Reason: Diarrhea Sodium Bicarbonate 650 mg PO TID #120 tablet Home Medications: Atorvastatin [Lipitor] 40 mg PO HS 01/08/17 [History] Clopidogrel [Plavix] 75 mg PO DAILY 01/08/17 [History] Furosemide [Lasix] 40 mg PO BID 01/08/17 [History] Insulin ASPART [NovoLOG] 15 unit SQ TID 01/08/17 [History] Insulin Glargine [Lantus] 30 unit SQ HS 01/08/17 [History] Loratadine [Claritin] 10 mg PO DAILY 01/08/17 [History] Metoprolol XL (24 HR) Succ [Toprol Xl] 100 mg PO DAILY 01/08/17 [History] Nitroglycerin [Nitrostat] 0.4 mg SL Q5M PRN 01/08/17 [History] Loperamide [Imodium] 2 mg PO Q4HR PRN #30 capsule 01/11/17 [Rx] Sodium Bicarbonate 650 mg PO TID #120 tablet 01/11/17 [Rx] Allergies/Adverse Reactions: Allergies ragweed pollen Allergy (Verified 01/08/17 11:45) Cough - Notes to Outpatient Provider 1. Pt has leukocytopenia and thrombocytopenia, hematology saw pt and consider infection induced (WBC 2.1k, platelet 58k today). Some hematology workup ( fibrinogen, hepatitis panel, HIV, LDH, pro-time and INR and PTT inhibitor) send , results pending, plz f/u. Date of admission: 01/08/17 02:21 Primary care physician: Balaji Verduzco Consults: 01/08/17 02:21 Consult to Cardiology [CONS] Routine Comment: Consulting Provider: Cardiology [place] Reason for Consult: NSTEMI Call Completed: Yes 01/09/17 11:38 Consult to Nephrology [CONS] Routine Consulting Provider: Kidney [facility]/KELLY/DANITZA/SPARKLE Reason for Consult: Worsening metabolic acidosis with diarrhea Call Completed: Yes 01/10/17 09:20 Consult to Occupational Therapy [CONS] Routine Comment: Evaluate, develop and implement POC Reason for Consult: Generalized weakness Consult to Physical Therapy [CONS] Routine Comment: Evaluate, develop and implement POC Reason for Consult: Generalized weakness 01/10/17 09:23 Consult to Oncology Hematology [CONS] Routine Consulting Provider: Migdalia Farrell Reason for Consult: Leukopenia, thrombocytopenia Call Completed: Yes Discharging clinician: Meera Bland Anticipated date of discharge: 01/11/17 - Patient Status Disposition: Home, Self-Care Condition: Good Functional capacity at discharge: independent ambulation Overall status at discharge: patient is back to baseline - Discharge Instructions Follow Up With: Clovis Byers MD [Partnered Physician] - 01/28/17 10:00 am (Please follow up as schedule... Dr. Byers Cellphone number [phone]) Balaji Verduzco DO [Primary Care Provider] - 01/17/17 12:40 pm (Please follow up as schedule..) Demarcus Kenney DO [Partnered Physician] - 01/26/17 - Diet and Activity Activity: increase activity as tolerated Diet: advance to your usual diet, diabetic diet, low salt diet Interval History: Mr. Price is a 71 year old male patient with multiple medical problems including coronary artery disease status post CABG 2 years ago, ischemic cardiomyopathy, diabetes mellitus, chronic kidney disease stage IV, was transferred from an outside emergency room after he had presented there with the main complain of diarrhea and weakness. For the past 4 days patient has been having watery diarrhea blackish color approximately 10 bowel movements daily, in addition to nausea nonbloody nonbilious, vomiting, and chills. Patient was getting very weak. He has noted abdominal pain only when he coughs mainly in the right lower quadrant. No sick contexts or recent travel. No recent antibiotic use. He denies any chest pain. Hospital course: Mr. Price is a 71 year old male admitted for diarrhea and vomitting. Lab also shows metabolic acidosis. Stool test negative to C Diff. Pt was considered viral gastroenteritis and placed on IVF and symptomatic management. Nephrology consult called and pt was placed on bicarbonate drip, then switch to po bicarbonate. After treatment, pt's diarrhea has improved. Had two BM in last 24 hours and stool is soft but formed. His metabolic acidosis also improved with bicarbonate 20 today. Pt developped leukocytopenia and thrombocytopenia on admission, onco consult saw pt and consider infection caused cytopenia. His WBC and platelet level is stable (WBC 2.1k, platelet 58 today). Pt can be discharge home and f/u as outpatient. I saw and examined pt today, feels fine, mild generalized weak, has good appetite, no nausea. vitals stable. Pt will d/c home and follow up with PCP, nephro and hematology as outpatient. - Time Spent with Patient Total time spent providing and/or coordinating discharge services: 40 min Greater than 30 minutes - Constitutional Vitals: Temp Pulse Resp BP Pulse Ox 98.9 F 78 14 122/60 93 01/11/17 08:26 01/11/17 08:26 01/11/17 08:26 01/11/17 08:26 01/11/17 08:26 General appearance: Present: A&O X 3, answers questions appropriately - Head Head exam: Present: atraumatic, normocephalic - Eye Eye exam: Present: PERRL, conjuntiva pink, sclera anicteric Pupils: Present: PERRL - Neck Neck exam general surgery: Present: supple, trachea midline. Absent: lymphadenopathy - Respiratory Respiratory exam: Present: CTAB. Absent: accessory muscle use, rales, rhonchi, wheezes - Cardiovascular Cardiovascular exam: Present: RRR, +S1, +S2. Absent: diastolic murmur, gallop, rubs, systolic murmur - GI/Abdominal GI/Abdominal exam: Present: normal bowel sounds, soft, no peritoneal signs. Absent: distended, tenderness - Extremities Exam Extremities exam: Present: warm, radial pulses palpable and symetrical. Absent : calf tenderness, cyanotic, pedal edema - Neurological Exam Neurological exam: Present: CN II-XII intact, oriented X3, no focal deficits. Absent: pronater drift, facial droop, speech deficit - Skin Skin exam: Present: dry, intact - VTE Documentation of Mechanical Device: Graduated compression elastic hosiery
[2017-01-11] MEDS: Metoprolol XL (24 HR) Succ 50 MG TAB.ER.24H PO SCH (09:24)
--- NOTE | 2017-01-11 10:48 | Nephrology Progress Note ---
Date of Encounter: 01/11/17 Time of Encounter: 10:46 - Assessment and Plan (1) Gastroenteritis Current Visit: Yes Status: Acute Diarrhea is improving. Per primary team. He is tolerating some Po intake. Seems to have resolved. (2) SCOOTER (acute kidney injury) Current Visit: Yes Status: Acute SCOOTER on CKD. Baseline renal function is Stage 4. He is denying uremic symptoms at this time. His nausea is likely related to his gastroenteritis and he states it is improving. (3) Diabetes mellitus type 2, insulin dependent Current Visit: Yes Status: Chronic Per primary team. (4) Metabolic acidosis Current Visit: Yes Status: Acute Improved with iv bicarb. . Likely multifactorial, but mostly secondary to diarrhea. Started oral bicarbonate 01/10/17. (5) Chronic kidney disease (CKD), stage IV (severe) Current Visit: Yes Status: Chronic With underlying progression. Per Dr. Kenney's note patient would like CAPD if dialysis is needed. Patient has a follow-up appointment within the next month. Subjective Principal diagnosis: SCOOTER /CKD4 Interval history: Mr. Price feels ok this morning. His ROS otherwise seems stable or negative. He is being discharged. Objective - Vital Signs Vital signs: Vital Signs Temp Pulse Resp BP Pulse Ox 01/11/17 10:15 93 01/11/17 08:26 98.9 F 78 14 122/60 93 01/11/17 04:28 98.1 F 70 16 114/57 94 01/10/17 23:25 97.9 F 72 18 118/62 97 01/10/17 19:22 98.2 F 75 16 111/65 95 01/10/17 15:21 98.1 F 71 17 142/53 93 01/10/17 14:23 78 95 01/10/17 11:16 97.9 F 76 18 126/66 94 Intake and Output 01/10/17 01/11/17 01/11/17 23:59 07:59 15:59 Intake Total 240 / 240 Balance 240 / 240 Intake: Oral 240 / 240 Other: Meal Breakfast Percent of Meal Consumed 95% Weight 119.023 kg Blood Glucose* 139 139 169 - General Appearance General appearance: Present: well-developed, well-nourished, obese EENT: Present: ATNC Neck: Present: supple Neurologic: Present: alert and oriented x3 Psychiatric: Present: mood/affect appropriate - Lab 01/11/17 04:58 01/11/17 04:58 Most recent lab results Calcium 7.3 mg/dL (8.6-10.8) L 01/11/17 04:58 Phosphorus 3.6 mg/dL (2.3-4.7) 01/11/17 04:58 Magnesium 1.5 mg/dL (1.6-2.6) L 01/08/17 03:39 - VTE Documentation of Mechanical Device: Graduated compression elastic hosiery Consult Discharge Plan - Plan Instructions: Myocardial Infarction (DC), Gastroenteritis (DC) Referrals: Clovis Byers MD [Partnered Physician] - 01/28/17 10:00 am (Please follow up as schedule... Dr. Byers Cellphone number [phone]) Demarcus Kenney DO [Partnered Physician] - 01/26/17 Balaji Verduzco DO [Primary Care Provider] - 01/17/17 12:40 pm (Please follow up as schedule..) Prescriptions: Loperamide [Imodium] 2 mg PO Q4HR PRN #30 capsule PRN Reason: Diarrhea Sodium Bicarbonate 650 mg PO TID #120 tablet
[2017-01-12 18:22] LABS: CK-BB (CK isoenzymes) 0 % (0-0); CK-MB (CK isoenzymes) 0 % (0-4); CK-MM (CK-isoenzymes) 96 % (96-100)
[2017-01-12 18:22] LABS: CK-BB (CK isoenzymes) 0 % (0-0); CK-MB (CK isoenzymes) 0 % (0-4); CK-MM (CK-isoenzymes) 100 % (96-100)
[2017-01-13 01:42] LABS: HIV-1 Ab Supplemental NEGATIVE (Negative); HIV-2 Ab Supplemental NEGATIVE (Negative)
[2017-01-13 11:10] LABS: CK Total (Ck Isoenzymes) 96 U/L (20-200)
[2017-01-13 11:10] LABS: CK Total (Ck Isoenzymes) 91 U/L (20-200)
[2017-01-13 11:17] LABS: Haptoglobin 83 mg/dL (30-200)
== END 2017-01-11 11:16 | disposition home or self-care (01) | DRG 391 ==
LOC: 2ANU → SUATTDRO 02:21
PROVIDERS: ADMIT Hospitalist; ATTEND Internal Medicine

== ENCOUNTER 2017-10-25 19:31 | Inpatient (IN) ==
--- NOTE | 2017-10-25 20:06 | Emergency Department Note ---
Disposition Clinical Impression: Chronic kidney disease, Anemia, Dyspnea Disposition: Admitted As Inpatient Condition: Fair Time of Disposition: 20:51 General Adult HPI - General Chief complaint: ED Abdominal Pain Stated complaint: "Kidney Issues" Sent per Dr. Kenney Time Seen by Provider: 10/25/17 19:52 Source: patient, family Mode of arrival: ambulatory Limitations: no limitations Nursing Notes Reviewed: Yes Vital Signs Reviewed: Yes - History of Present Illness HPI Narrative: 72-year-old male with history of hypertension, CAD on Plavix, diabetes presents for evaluation of "kidney issues". Patient states that he has a history of chronic kidney disease. Patient seen his duplicating machine operator Dr. Kenney earlier today who wanted him to be admitted. Patient declined at that time. Patient states that since he went home he felt nauseous and had 1 episode of vomiting. Patient states that he has been having shortness of breath for the past month. Patient's had a nonproductive cough. No fevers. Patient states that he did have fluid on his lungs and they thought it was pneumonia and completed a ten- day course of antibiotics. Patient states he continues to feel short of breath. Patient also notes some chest pain related to shortness of breath however denies any chest pain currently. Patient denies abdominal pain. No increasing swelling of the lower legs. Patient states that he still produces urine. Pain Scale: 6 - Related Data Home Medications Medication Instructions Recorded Confirmed Atorvastatin [Lipitor] 40 mg PO HS 01/08/17 10/25/17 Clopidogrel [Plavix] 75 mg PO DAILY 01/08/17 10/25/17 Furosemide [Lasix] 40 mg PO DAILY 01/08/17 10/25/17 Insulin Glargine [Lantus] 25 unit SQ HS 01/08/17 10/25/17 Albuterol Sulfate [Ventolin Hfa] 2 puff IH Q4H PRN 10/25/17 10/25/17 Calcitriol 0.5 mcg PO DAILY 10/25/17 10/25/17 Insulin ASPART [Novolog Flexpen] 10 - 15 unit SQ TIDWM 10/25/17 10/25/17 Metoprolol Succinate [Toprol Xl] 100 mg PO DAILY 10/25/17 10/25/17 Sodium Bicarbonate 1,300 mg PO DAILY 10/25/17 10/25/17 Allergies Allergy/AdvReac Type Severity Reaction Status Date / Time ragweed pollen Allergy Cough Verified 10/25/17 19:44 nifedipine AdvReac Dizzy & Verified 10/25/17 20:33 Irritable All systems ED: reviewed and negative except as stated. Constitutional: Denies: fever Cardiovascular: Reports: chest pain Respiratory: Reports: cough, dyspnea. Denies: wheezes, sputum production Gastrointestinal: Reports: nausea, vomiting. Denies: abdominal pain, diarrhea Past Medical History - Past Medical History Source: patient, obtained from family Medical history: Reports: arthritis, cardiomyopathy, CHF, COPD, coronary artery disease, diabetes, hyperlipidemia, hypertension, renal disease, other Surgical history: Reports: cholecystectomy, coronary bypass (CABG) Psychiatric history: Reports: no psych history - Social History Smoking Status: Former smoker Smokeless Tobacco Status: No Alcohol use: Reports: none Drug use: Reports: none Physical Exam - General Limitations: no limitations General appearance: alert, in no apparent distress, obese - Head Head exam: atraumatic, normocephalic, normal inspection - Eye Eye exam: Present: normal appearance, PERRL, EOMI - ENT ENT exam: normal exam, mucous membranes moist - Neck Neck exam: Present: normal inspection - Chest Chest inspection: Present: normal inspection - Respiratory Respiratory exam: Present: other (diffusely diminished). Absent: respiratory distress - Cardiovascular Cardiovascular exam: Present: regular rate, normal rhythm. Absent: systolic murmur - Abdominal Exam Abdominal exam: Present: soft, Non-Tender - Extremities Exam Extremities exam: Present: normal inspection, pedal edema (trace ) - Expanded Lower Extremity Exam Neurovascular/Tendon exam: Present: normal capillary refill. Absent: pulse deficit - Back Exam Back exam: Present: normal inspection - Neurological Exam Neurological exam: Present: alert, oriented X3, CN II-XII intact - Skin Skin exam: Present: warm, dry, intact, normal color Course Course Narrative: Patient seen and examined. Patient appears to be no acute distress. Patient's vitals are stable. Patient's records reviewed show that he does have a history of chronic kidney disease. Likely worsening. Patient will get basic labs, EKG chest x-ray. Disposition likely admission. - Reevaluation(s) Reevaluation #1: Patient seen and examined. Patient's updated on plan of care. Patient does have a 2 L oxygen requirement. Patient denies any chest pain at this time. Time: 21:03 - Consultations Consultation #1: Spoke with Dr. Tan and made aware of patient's kidney function and admission to the hospital. Time: 20:56 Vital Signs Temperature 97.6 F 10/25/17 19:44 Pulse Rate 72 10/25/17 19:44 Respiratory Rate 16 10/25/17 19:44 Blood Pressure 172/85 10/25/17 19:44 O2 Sat by Pulse Oximetry 93 10/25/17 19:44 Temperature 98.4 F 10/26/17 03:31 Pulse Rate 73 10/26/17 03:31 Respiratory Rate 18 10/26/17 04:22 Blood Pressure 117/67 10/26/17 03:31 O2 Sat by Pulse Oximetry 96 10/26/17 04:22 Oxygen Delivery Oxygen Delivery Room Air Medical Decision Making - MDM Narrative Medical decision making narrative: Patient presents with worsening chronic kidney disease. Patient refused admission earlier today. Patient appears to be no acute distress. Patient's labs show that he does have worsening CKD. Patient's electrolytes does show a potassium of 5.6. Patient did have a mild elevation in his troponin. Patient was given aspirin. Patient's troponin appeared to be elevated in the past. Patient denying chest pain currently. Patient was not heparinized because likely secondary to his chronic kidney disease. Discussed the case with nephrology who will evaluate the patient. Patient does not need emergent dialysis at this time. - Lab Data Lab results reviewed: Yes I reviewed the patient's lab results. Result diagrams: 10/26/17 02:03 10/26/17 02:03 Lab Results 10/25/17 10/25/17 10/25/17 Range/Units 20:00 20:14 20:14 WBC 9.2 (4.3-11.1) K/mcL RBC 3.91 L (4.19-5.50) M/mcL Hgb 11.2 L (12.9-16.9) g/dL Hct 33.6 L (37.5-50.1) % MCV 85.9 (83.0-100.0) fL MCH 28.6 (28.0-33.3) pg MCHC 33.3 (31.6-35.5) g/dL RDW 13.7 (11.5-14.5) % Plt Count 134 L (140-400) K/mcL MPV 9.2 L (9.4-12.4) fL Immature Gran % 0.2 (0-4) % Seg Neutrophils % 86.5 % Lymphocytes % 7.6 % Monocytes % 4.1 % Eosinophils % 1.3 % Basophils % 0.3 % Neutrophils # 8.0 (1.6-8.9) K/mcL Lymphocytes # 0.7 (0.6-4.6) K/mcL Monocytes # 0.4 (0.0-1.3) K/mcL Eosinophils # 0.1 (0.0-0.6) K/mcL Basophils # 0.0 (0.0-0.2) K/mcL PT 12.2 H (9.4-12.1) Seconds INR 1.1 Sodium Potassium Chloride Carbon Dioxide BUN Creatinine Est GFR ( Amer) Est GFR (Non-Af Amer) BUN/Creatinine Ratio Glucose Calculated Osmolality Calcium Phosphorus Total Bilirubin Direct Bilirubin Indirect Bilirubin AST ALT Alkaline Phosphatase Troponin I (< 0.04) ng/mL B-Natriuretic Peptide (Less than 100) pg/mL Serum Total Protein Albumin Globulin Albumin/Globulin Ratio Urine Color Yellow (Yellow) Urine Clarity Clear (Clear) Urine pH 6.5 (5.0-8.0) pH Units Ur Specific [place] 1.018 (1.010-1.025) Urine Protein >=1000 H (Neg-Trace) mg/dL Urine Glucose (UA) 500 H (Normal) mg/dL Urine Ketones Negative (Negative) mg/dL Urine Blood Small H (Negative) Urine Nitrite Negative (Negative) Urine Bilirubin Negative (Negative) Urine Urobilinogen Normal (Normal) mg/dL Ur Leukocyte Esterase Negative (Negative) Urine Microscopic RBC 5-15 H (0-3) per hpf Urine Microscopic WBC 3-5 H (0-3) per hpf Ur Squamous Epith Cells Many H (None-Few) per lpf Urine Bacteria None Seen (None-Few) per hpf Hyaline Casts None Seen (None-Few) per lpf Ur Culture Indicated? NO (NO) Specimen Rejected 10/25/17 10/25/17 10/25/17 Range/Units 20:14 20:14 20:14 WBC (4.3-11.1) K/mcL RBC (4.19-5.50) M/mcL Hgb (12.9-16.9) g/dL Hct (37.5-50.1) % MCV (83.0-100.0) fL MCH (28.0-33.3) pg MCHC (31.6-35.5) g/dL RDW (11.5-14.5) % Plt Count (140-400) K/mcL MPV (9.4-12.4) fL Immature Gran % (0-4) % Seg Neutrophils % % Lymphocytes % % Monocytes % % Eosinophils % % Basophils % % Neutrophils # (1.6-8.9) K/mcL Lymphocytes # (0.6-4.6) K/mcL Monocytes # (0.0-1.3) K/mcL Eosinophils # (0.0-0.6) K/mcL Basophils # (0.0-0.2) K/mcL PT (9.4-12.1) Seconds INR Sodium TNP Potassium TNP Chloride TNP Carbon Dioxide TNP BUN TNP Creatinine TNP Est GFR ( Amer) TNP Est GFR (Non-Af Amer) TNP BUN/Creatinine Ratio TNP Glucose TNP Calculated Osmolality TNP Calcium TNP Phosphorus TNP Total Bilirubin TNP Direct Bilirubin TNP Indirect Bilirubin TNP AST TNP ALT TNP Alkaline Phosphatase TNP Troponin I 0.06 H* (< 0.04) ng/mL B-Natriuretic Peptide 1779 H (Less than 100) pg/mL Serum Total Protein TNP Albumin TNP Globulin TNP Albumin/Globulin Ratio TNP Urine Color (Yellow) Urine Clarity (Clear) Urine pH (5.0-8.0) pH Units Ur Specific [place] (1.010-1.025) Urine Protein (Neg-Trace) mg/dL Urine Glucose (UA) (Normal) mg/dL Urine Ketones (Negative) mg/dL Urine Blood (Negative) Urine Nitrite (Negative) Urine Bilirubin (Negative) Urine Urobilinogen (Normal) mg/dL Ur Leukocyte Esterase (Negative) Urine Microscopic RBC (0-3) per hpf Urine Microscopic WBC (0-3) per hpf Ur Squamous Epith Cells (None-Few) per lpf Urine Bacteria (None-Few) per hpf Hyaline Casts (None-Few) per lpf Ur Culture Indicated? (NO) Specimen Rejected Hemolyzed 10/25/17 Range/Units 21:13 WBC (4.3-11.1) K/mcL RBC (4.19-5.50) M/mcL Hgb (12.9-16.9) g/dL Hct (37.5-50.1) % MCV (83.0-100.0) fL MCH (28.0-33.3) pg MCHC (31.6-35.5) g/dL RDW (11.5-14.5) % Plt Count (140-400) K/mcL MPV (9.4-12.4) fL Immature Gran % (0-4) % Seg Neutrophils % % Lymphocytes % % Monocytes % % Eosinophils % % Basophils % % Neutrophils # (1.6-8.9) K/mcL Lymphocytes # (0.6-4.6) K/mcL Monocytes # (0.0-1.3) K/mcL Eosinophils # (0.0-0.6) K/mcL Basophils # (0.0-0.2) K/mcL PT (9.4-12.1) Seconds INR Sodium 137 Potassium 4.8 Chloride 110 H Carbon Dioxide 18 L BUN 68 H Creatinine 4.33 H Est GFR ( Amer) 16 L Est GFR (Non-Af Amer) 14 L BUN/Creatinine Ratio 16 Glucose 211 H Calculated Osmolality 310 H Calcium 9.1 Phosphorus 4.3 Total Bilirubin 0.4 Direct Bilirubin 0.1 Indirect Bilirubin 0.3 AST 9 L ALT 11 Alkaline Phosphatase 76 Troponin I (< 0.04) ng/mL B-Natriuretic Peptide (Less than 100) pg/mL Serum Total Protein 6.5 Albumin 3.7 Globulin 2.8 Albumin/Globulin Ratio 1.3 Urine Color (Yellow) Urine Clarity (Clear) Urine pH (5.0-8.0) pH Units Ur Specific [place] (1.010-1.025) Urine Protein (Neg-Trace) mg/dL Urine Glucose (UA) (Normal) mg/dL Urine Ketones (Negative) mg/dL Urine Blood (Negative) Urine Nitrite (Negative) Urine Bilirubin (Negative) Urine Urobilinogen (Normal) mg/dL Ur Leukocyte Esterase (Negative) Urine Microscopic RBC (0-3) per hpf Urine Microscopic WBC (0-3) per hpf Ur Squamous Epith Cells (None-Few) per lpf Urine Bacteria (None-Few) per hpf Hyaline Casts (None-Few) per lpf Ur Culture Indicated? (NO) Specimen Rejected - Radiology Data Radiology results reviewed: Yes I reviewed the patient's radiology results. Chest X-Ray 10/25/17 20:03 IMPRESSION: Findings most consistent with mild congestive heart failure. D/ / Avel Sarabia MD / Avel Sarabia MD Interpreting Provider: Avel Sarabia MD - EKG Data EKG #1 Rate: normal Rhythm: A. flutter (2:1 and 3:1) [place]/QRS: normal QTc: other (458) When compared to previous EKG there are: previous EKG unavailable Interpretation: no acute changes, nonspecific ST-T wave changes S.B.A.R. - S.B.ANorahRNorah Situation: Demographics Background: Presenting Complaint Assessment: Vital Signs, Course and respsone to treatment Recommendation: Barrier(s) to disposition, Recommendation based on pending studies, treatments, or consults S.B.A.RNorah Report Given to: Dr. King S.BNorahAMiladis Repor Time: 21:14 Attestation Statement - Attestation Attestation: I examined this patient and my medical decision-making was reviewed with the Resident Physician. I agree with the documented findings, disposition and treatment plan as described except to the extent set forth below. Patient with uremia, acute kidney injury. We will at admit for further management and initiate IV fluids.
[2017-10-25 20:22] LABS: Basophils % 0.3 %; Eosinophils # 0.1 K/mcL (0.0-0.6); Eosinophils % 1.3 %; Hematocrit 33.6 % (37.5-50.1); Hemoglobin 11.2 g/dL (12.9-16.9); Immature Granulocytes % 0.2 % (0-4); Lymphocytes # 0.7 K/mcL (0.6-4.6); Lymphocytes % 7.6 %; Mean Corpuscular HGB Conc 33.3 g/dL (31.6-35.5); Mean Corpuscular Hemoglobin 28.6 pg (28.0-33.3); Mean Corpuscular Volume 85.9 fL (83.0-100.0); Mean Platelet Volume 9.2 fL (9.4-12.4); Monocytes # 0.4 K/mcL (0.0-1.3); Monocytes % 4.1 %; Platelet Count 134 K/mcL (140-400); Red Blood Count 3.91 M/mcL (4.19-5.50); Red Cell Distribution Width 13.7 % (11.5-14.5); Segmented Neutrophils % 86.5 %
[2017-10-25 20:27] LABS: Bilirubin,Urine Negative (Negative); Blood,Urine Small (Negative); Clarity,Urine Clear (Clear); Color,Urine Yellow (Yellow); Glucose,Urine (UA) 500 mg/dL (Normal); Ketones,Urine Negative (Negative); Leukocyte Esterase,Urine Negative (Negative); Nitrite,Urine Negative (Negative); PH,Urine 6.5 pH Units (5.0-8.0); Protein,Urine >=1000 mg/dL (Neg-Trace); Specific Gravity,Urine 1.018 (1.010-1.025); Urobilinogen,Urine Normal (Normal)
[2017-10-25 20:30] LABS: Bacteria,Urine None Seen per hpf (None-Few); Hyaline Casts,Urine None Seen per lpf (None-Few); Squamous Epithelial Cell,Urine Many per lpf (None-Few)
[2017-10-25 20:31] LABS: INR 1.1; Prothrombin Time 12.2 Seconds (9.4-12.1)
[2017-10-25 20:52] LABS: Troponin I 0.06 ng/mL (< 0.04)
[2017-10-25] MEDS: Aspirin 81 MG TAB.CHEW PO ONE ×2 (21:14→21:17)
[2017-10-25 21:47] LABS: Albumin 3.7 g/dL (3.5-5.7); Albumin/Globulin Ratio 1.3 (1.1-2.2); Bilirubin,Direct 0.1 mg/dL (0.0-0.2); Bilirubin,Indirect 0.3 mg/dL (0.0-1.2); Bilirubin,Total 0.4 mg/dL (0.3-1.0); Calcium 9.1 mg/dL (8.6-10.3); Globulin 2.8 g/dL (2.4-3.5); Phosphorous 4.3 mg/dL (2.7-4.5); Potassium 4.8 mEq/L (3.5-5.1); Total Protein 6.5 g/dL (6.4-8.9)
[2017-10-25] MEDS ORDERED: Dextrose Gel 15 GM/37.5 ML TUBE PO PRN ×2 (22:02)
[2017-10-25] MEDS ORDERED: D5% in Water 1,000 ML IVC PRN (22:02)
[2017-10-25] MEDS ORDERED: *HR* Dextrose 50 % in Water (Syg) 50 ML SYRINGE IVP PRN (22:02)
[2017-10-25] MEDS ORDERED: Naloxone 0.4 MG/ML INJ IVP PRN (22:04)
--- NOTE | 2017-10-25 22:05 | Internal Med History&Physical ---
Date of Encounter: 10/26/17 Time of Encounter: 22:01 Internal Medicine - H&P: HPI Chief complaint: Abnormal kidney function Admitted From: Emergency Dept Plans for Post Hospital Care: Home History of present illness: Mr. Price is a 72 year old male multiple medical problems including coronary artery disease status post CABG 2 years ago, ischemic cardiomyopathy, diabetes mellitus, chronic kidney disease stage IV, who presents to the emergency department for dyspnea. The patient was seen by his photoengraving helper earlier in the day and was recommended an admission for possible dialysis however the patient refused. Later in the day he changed his mind and presented to the emergency department. His and daughter in the room and they all state along with the patient that he has been doing with shortness of breath with exertion for the last month or so. He also has had increased abdominal girth. He was recently treated for suspected pneumonia and finished antibiotics. Also underwent PFTs recently which I do not have results of. The patient in the emergency department was mostly hemodynamically stable. Lowest O2 we have on record is 93%. He was put on supplemental oxygen 2 L in the emergency department. I went and took the patient off oxygen and he went down to 92% and I also walked the patient off O2 and his oxygenation only went down to 92% it was only a small walk as patient was hooked to many lines. The patient denies chest pain. Denies fever, chills, headache, blurry vision, nausea, vomiting, abdominal pain, urinary symptoms, or neurological symptoms. In the emergency department laboratory workup showed labs consistent with chronic kidney disease. BNP was elevated at 1779. The patient is on Plavix and took a dose of Plavix today. Past Med Surg Social Fam HX - Past Medical History Medical history: arthritis, cardiomyopathy, CHF, COPD, coronary artery disease, diabetes, hyperlipidemia, hypertension, renal disease, other Psychiatric history: no psych history - Past Surgical History Surgical History: cholecystectomy, coronary bypass (CABG) - Social History Smoking Status: Former smoker Smokeless Tobacco Status: No Alcohol use: none Drug use: none - Family History Mother Hx Family Cardiac Disorders: Yes (Heart attack) Hx Family Endocrine Disorder: Yes (DM) Father Hx Family Cardiac Disorders: Yes (Heart attack) Hx Family Cancer: Yes (lung cancer) Internal Medicine - H&P: Meds Atorvastatin [Lipitor] 40 mg PO HS 01/08/17 [History] Clopidogrel [Plavix] 75 mg PO DAILY 01/08/17 [History] Furosemide [Lasix] 40 mg PO DAILY 01/08/17 [History] Insulin Glargine [Lantus] 25 unit SQ HS 01/08/17 [History] Albuterol Sulfate [Ventolin Hfa] 2 puff IH Q4H PRN 10/25/17 [History] Calcitriol 0.5 mcg PO DAILY 10/25/17 [History] Insulin ASPART [Novolog Flexpen] 10 - 15 unit SQ TIDWM 10/25/17 [History] Metoprolol Succinate [Toprol Xl] 100 mg PO DAILY 10/25/17 [History] Sodium Bicarbonate 1,300 mg PO DAILY 10/25/17 [History] 3 Allergy/AdvReac Type Severity Reaction Status Date / Time ragweed pollen Allergy Cough Verified 10/25/17 19:44 nifedipine AdvReac Dizzy & Verified 10/25/17 20:33 Irritable All Systems PM: A 10-system review of systems was performed and is negative for pertinent findings except as documented above in the HPI. Review of systems: All systems reviewed are negative except for as mentioned above - Constitutional Vitals: Temp Pulse Resp BP Pulse Ox 97.6 F 83 20 149/68 95 10/25/17 19:44 10/25/17 21:01 10/25/17 21:01 10/25/17 21:01 10/25/17 21:01 Exam: GEN: NAD HEENT: AT, NC, No cyanosis, oral mucosa is moist, No JVD Lymphatics: No lymphadenoapthy Eyes: Extrocular muscles intact, anicteric CVS:RRR. S1, S2, No m/r/g RESP: Crackles at the bases. ABD: Soft, NT, ND, +BS EXT: No edema, No rashes, 2+ DP NEURO: Nonfocal, CN II-XII intact, No focal motor or sensory deficits Psych: Cooperative, Not anxious or depressed Internal Med - H&P Results - Labs CBC & Chem 7: 10/25/17 20:14 10/25/17 21:13 Labs: Short CBC 10/25/17 Range/Units 20:14 WBC 9.2 (4.3-11.1) K/mcL Hgb 11.2 L (12.9-16.9) g/dL Hct 33.6 L (37.5-50.1) % Plt Count 134 L (140-400) K/mcL Neutrophils # 8.0 (1.6-8.9) K/mcL BMP 10/25/17 10/25/17 20:14 21:13 Sodium TNP 137 Potassium TNP 4.8 Chloride TNP 110 H Carbon Dioxide TNP 18 L BUN TNP 68 H Creatinine TNP 4.33 H Glucose TNP 211 H Calcium TNP 9.1 Cardiac Enzymes 10/25/17 Range/Units 20:14 Troponin I 0.06 H* (< 0.04) ng/mL Liver Function 10/25/17 10/25/17 Range/Units 20:14 21:13 Total Bilirubin TNP 0.4 Direct Bilirubin TNP 0.1 AST TNP 9 L ALT TNP 11 Alkaline Phosphatase TNP 76 Albumin TNP 3.7 Urine 10/25/17 Range/Units 20:00 Urine Color Yellow (Yellow) Urine Clarity Clear (Clear) Urine pH 6.5 (5.0-8.0) pH Units Ur Specific [place] 1.018 (1.010-1.025) Urine Protein >=1000 H (Neg-Trace) mg/dL Urine Glucose (UA) 500 H (Normal) mg/dL - Impressions ITS Impressions Chest X-Ray 10/25/17 20:03 IMPRESSION: Findings most consistent with mild congestive heart failure. D/ / Avel Sarabia MD / Avel Sarabia MD Interpreting Provider: Avel Sarabia MD - Assessment and plan (1) Dyspnea Current Visit: Yes Status: Acute Assessment and plan: Patient has noticed dyspnea on exertion. He reports orthopnea. I suspect the patient's symptoms are likely from volume overload from his kidney disease. He may have some resolution of his symptoms with dialysis. We will continue Lasix for now. We will order an echocardiogram. The patient recently had PFTs as well which I do not have results of. O2 support as needed. Nebs. Qualifiers: Dyspnea type: dyspnea on exertion Qualified Code(s): R06.09 - Other forms of dyspnea (2) CKD (chronic kidney disease) Current Visit: Yes Status: Chronic Assessment and plan: Patient seems to have kidney function has been worsening slowly since 2014. Patient sees nephrology in the outpatient setting. Nephrology were contacted in the emergency department and from I understand there is possible plans for HD initiation. For now I will hold the patient's Plavix. Not exactly sure there is definitive plans for this. We will hold in case any HD access will be needed. Continue Lasix. Continue sodium bicarbonate. Qualifiers: Chronic kidney disease stage: stage 4 (severe) Qualified Code(s): N18.4 - Chronic kidney disease, stage 4 (severe) (3) Thrombocytopenia Current Visit: No Status: Acute Assessment and plan: It is actually better than previous. Seems to be chronic. We will continue to monitor. (4) Elevated troponin Current Visit: No Status: Resolved Assessment and plan: Patient's troponins are chronically elevated. This is actually lower than his previous troponins. He has no chest pain whatsoever. EKG with no acute ST or T -wave changes. We will trend. (5) Diabetes mellitus type 2, insulin dependent Current Visit: No Status: Chronic Assessment and plan: Continue basal insulin. Continue insulin sliding scale. Continue Accu-Cheks. (6) Ischemic cardiomyopathy Current Visit: No Status: Chronic Assessment and plan: Hold Plavix as mentioned above. Continue beta kaylee. Continue statin. (7) DVT prophylaxis Current Visit: Yes Status: Acute Assessment and plan: SCDs given thrombocytopenia. - Time Spent With Patient Total time spent is greater than 50% in coordination of care (as documented) at patient's floor/unit and/or counseling patient:
[2017-10-26 02:17] LABS: Basophils % 0.6 %; Eosinophils # 0.1 K/mcL (0.0-0.6); Eosinophils % 1.6 %; Hematocrit 30.4 % (37.5-50.1); Hemoglobin 9.9 g/dL (12.9-16.9); Immature Granulocytes % 0.3 % (0-4); Lymphocytes # 1.1 K/mcL (0.6-4.6); Lymphocytes % 16.5 %; Mean Corpuscular HGB Conc 32.6 g/dL (31.6-35.5); Mean Corpuscular Hemoglobin 28.1 pg (28.0-33.3); Mean Corpuscular Volume 86.4 fL (83.0-100.0); Mean Platelet Volume 9.2 fL (9.4-12.4); Monocytes # 0.4 K/mcL (0.0-1.3); Monocytes % 5.7 %; Neutrophils # 5.1 K/mcL (1.6-8.9); Platelet Count 126 K/mcL (140-400); Red Blood Count 3.52 M/mcL (4.19-5.50); Red Cell Distribution Width 13.6 % (11.5-14.5); Segmented Neutrophils % 75.3 %
[2017-10-26 02:35] LABS: Calcium 8.8 mg/dL (8.6-10.3); Magnesium 1.9 mg/dL (1.6-2.6); Potassium 4.3 mEq/L (3.5-5.1)
[2017-10-26] MEDS: Ipratropium/Albuterol Neb 3 ML IH SCH ×4 (04:22→21:10)
[2017-10-26] MEDS: Insulin LISPRO 300 UNITS/3 ML VIAL SQ SCH ×4 (08:10→21:42)
[2017-10-26] MEDS ORDERED: Furosemide 40 MG TABLET PO SCH (09:00)
[2017-10-26] MEDS: Metoprolol XL (24 HR) Succ 50 MG TAB.ER.24H PO SCH (10:30)
--- NOTE | 2017-10-26 11:49 | Nephrology Consult Note ---
Date of Encounter: 10/26/17 Time of Encounter: 11:40 Assessment and Plan (1) CKD (chronic kidney disease) stage 5, GFR less than 15 ml/min Current Visit: Yes Status: Chronic Plan to obtain tep IJ HD catheter to initiate HD today or tomorrow Ultimately plan to obtain permcath once plavix held long enough for IR to place Will arrange outpatient HD placement in [facility] [place] as well (2) Dyspnea Current Visit: Yes Status: Acute Likely acute CHF vs generalized kuid overload from CKD Agree with echo Strict I/Os advised Fluid restriction at 1.5liters a day advised Will change lasix to iv Qualifiers: Dyspnea type: dyspnea on exertion Qualified Code(s): R06.09 - Other forms of dyspnea History of Present Illness - Reason for Consult Consult date: 10/26/17 Chronic Kidney Disease Requesting physician: Mehrdad Rosas - History of Present Illness 72 y o male with PMH of DM and stage 4/5 CKD admitted with progressive dyspnea. pt follows with Dr Kenney and has been aware of condition but was hesitant to proceed with HD till yesterday when his dyspnea worsen. No chest pain but progressive LE edema. Unfortunately pt cannot get his permcath without holding plavix for 5 days per IR hence will need temporary catheter for dialysis till then. Past Med Surg Social Fam HX - Past Medical History Medical history: arthritis, cardiomyopathy, CHF, COPD, coronary artery disease, diabetes, hyperlipidemia, hypertension, renal disease, other Psychiatric history: no psych history - Past Surgical History Surgical History: cholecystectomy, coronary bypass (CABG) - Social History Smoking Status: Former smoker Smokeless Tobacco Status: No Alcohol use: none Drug use: none - Family History Mother Hx Family Cardiac Disorders: Yes (Heart attack) Hx Family Endocrine Disorder: Yes (DM) Father Hx Family Cardiac Disorders: Yes (Heart attack) Hx Family Cancer: Yes (lung cancer) Medications and Allergies Atorvastatin [Lipitor] 40 mg PO HS 01/08/17 [History] Clopidogrel [Plavix] 75 mg PO DAILY 01/08/17 [History] Furosemide [Lasix] 40 mg PO DAILY 01/08/17 [History] Insulin Glargine [Lantus] 25 unit SQ HS 01/08/17 [History] Albuterol Sulfate [Ventolin Hfa] 2 puff IH Q4H PRN 10/25/17 [History] Calcitriol 0.5 mcg PO DAILY 10/25/17 [History] Insulin ASPART [Novolog Flexpen] 10 - 15 unit SQ TIDWM 10/25/17 [History] Metoprolol Succinate [Toprol Xl] 100 mg PO DAILY 10/25/17 [History] Sodium Bicarbonate 1,300 mg PO DAILY 10/25/17 [History] 3 Allergy/AdvReac Type Severity Reaction Status Date / Time ragweed pollen Allergy Cough Verified 10/25/17 19:44 nifedipine AdvReac Dizzy & Verified 10/25/17 20:33 Irritable Review of Systems All Systems: reviewed and no additional remarkable complaints except as stated ( 10 systems reviewed) Exam - Vital Signs Vital signs: Initial Vital Signs Temp Pulse Resp BP Pulse Ox 97.6 F 72 16 172/85 93 10/25/17 19:44 10/25/17 19:44 10/25/17 19:44 10/25/17 19:44 10/25/17 19:44 Vital Signs - Last 8 Hours Temp Pulse Resp BP Pulse Ox 10/26/17 10:22 16 95 10/26/17 07:11 98.8 F 70 14 132/52 98 10/26/17 04:22 18 96 Intake and Output 10/25/17 10/26/17 10/26/17 23:59 07:59 15:59 Output Total 150 / 150 Balance -150 / -150 Output: Urine 150 / 150 Other: Weight 121 kg 121 kg Blood Glucose* 181 Patient Weight 10/26/17 23:59 Weight 121 kg - General Appearance General appearance: well-developed, well-nourished (mild distress) EENT: ATNC, mucous membranes moist Neck: no JVD, supple Additional Comments: decreased bs bases bilat Cardiology: edema, normal S1, normal S2 Gastrointestinal: no tenderness, no guarding, obese Integumentary: warm and dry Neurologic: no focal deficit Musculoskeletal: no deformities Psychiatric: mood/affect appropriate Results - Lab Results 10/30/17 05:42 10/30/17 05:42 Most recent lab results Calcium 8.8 mg/dL (8.6-10.3) 10/26/17 02:03 Phosphorus 4.3 mg/dL (2.7-4.5) 10/25/17 21:13 Magnesium 1.9 mg/dL (1.6-2.6) 10/26/17 02:03 Consult Discharge Plan - Plan Referrals: NONE,PCP [Primary Care Provider] -
[2017-10-26] MEDS ORDERED: *HR* Heparin 5,000 UNIT/ML VIAL ONE (13:30)
--- NOTE | 2017-10-26 13:53 | Cardiology Consult Note ---
Date of Encounter: 10/26/17 Time of Encounter: 13:00 Assessment and Plan (1) Atrial flutter Current Visit: Yes Status: Acute Per cardiology: -A.flutter noted per ECG. New onset. -Denies symptoms. -HR controlled on beta kaylee. -[id number] score 5 (age, DM, CHF, HTN, CAD). Unable to start anticoagulation at this time due to HD catheter placement today and plan for permacath possibly Tuesday and anemia. -Last TTE 04/2015 with no signifcant valvular dysfunction, however unable to visualize AV and PV. -Ideally, would recommend anticoagulation, however unable to start at this time due to planned procedures. Patient and family aware of increased risk of CVA/ embolic event. Can consider coumadin due to CKD in outpatient setting. Qualifiers: Atrial flutter type: unspecified Qualified Code(s): I48.92 - Unspecified atrial flutter (2) Anemia Current Visit: Yes Status: Chronic Per cardiology: -Known chronic anemia. -Hemoglobin on admission 11.2, today 9.9. -Management per primary service. Qualifiers: Anemia type: unspecified type Qualified Code(s): D64.9 - Anemia, unspecified (3) CKD (chronic kidney disease) stage 5, GFR less than 15 ml/min Current Visit: Yes Status: Chronic Per cardiology: -Known CKD. -PLan to start dialysis. -Management per primary and nephrology services. (4) CAD (coronary artery disease) Current Visit: No Status: Chronic Per cardiology: -Known CAD s/p CABG 2014. -Denies chest pain. -No acute ischemic ECG changes. -On beta kaylee, statin. Not on plavix now due to pending procedure. -Will continue to monitor in outpateint setting. Qualifiers: Coronary Disease-Associated Artery/Lesion type: [place] artery [place] vs. transplanted heart: [place] heart Associated angina: without angina Qualified Code(s): I25.10 - Atherosclerotic heart disease of [place] coronary artery without angina pectoris (5) Ischemic cardiomyopathy Current Visit: No Status: Chronic Per cardiology: -Known ischemic cardiomyopathy. -Last LVEF 29% per MUGA scan 02/2016. -On beta kaylee, not on rigo/arb due to renal function. -Does not have ICD, pateint has historically refused. -Discussed risk of sudden cardiac with pateint and . Patient refuses to consider ICD or repeat imaging for LVEF. (6) Elevated troponin Current Visit: No Status: Chronic Per cardiology: -Mildly elevated troponins in the setting of CKD, volume overload -Denies chest pain. -No acute ischemic changes noted. -Appears to have chronically elevated troponins. -Do not suspect NSTEMI, suspect demand ischemia/chronically elevated troponins. NO cardaic rehab consult warranted. Discussion w patient/family: The assessment and plan as outlined above was discussed with the patient and/or family members who expressed understanding and agreement. All questions were answered. Thank you for involving us in the care of your patient. Please call with any questions. Discussed and reviewed with . History of Present Illness Consult date: 10/26/17 Requesting physician: Nenita Barber Consult reason: new a.flutter Chief complaint: "bad kidneys" History of present illness: Mr. Price is a 72 year old male with a relevant past medical history of DM II, CAD s/p CABG, CA, CHF, CKD, ischemic cardiomyopathy. 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 Patient reports worsening shortness of breath and increased edema over the past few months. Patient denies chest pain. Patient denies palpitations/fluttering. Denies dizziness/lightheadedness. Patient denies bleeding or blood loss. Past Med Surg Social Fam HX - Past Medical History Attestation: Yes The following information was validated with the patient. Source: patient, old records reviewed, obtained from family Medical history: arthritis, cardiomyopathy, CHF, COPD, coronary artery disease, diabetes, hyperlipidemia, hypertension, renal disease, other Psychiatric history: no psych history - Past Surgical History Surgical History: cholecystectomy, coronary bypass (CABG) - Social History Smoking Status: Former smoker Smokeless Tobacco Status: No Alcohol use: none Drug use: none - Family History Mother Hx Family Cardiac Disorders: Yes (Heart attack) Hx Family Endocrine Disorder: Yes (DM) Father Hx Family Cardiac Disorders: Yes (Heart attack) Hx Family Cancer: Yes (lung cancer) Medications and Allergies Atorvastatin [Lipitor] 40 mg PO HS 01/08/17 [History] Clopidogrel [Plavix] 75 mg PO DAILY 01/08/17 [History] Furosemide [Lasix] 40 mg PO DAILY 01/08/17 [History] Insulin Glargine [Lantus] 25 unit SQ HS 01/08/17 [History] Albuterol Sulfate [Ventolin Hfa] 2 puff IH Q4H PRN 10/25/17 [History] Calcitriol 0.5 mcg PO DAILY 10/25/17 [History] Insulin ASPART [Novolog Flexpen] 10 - 15 unit SQ TIDWM 10/25/17 [History] Metoprolol Succinate [Toprol Xl] 100 mg PO DAILY 10/25/17 [History] Sodium Bicarbonate 1,300 mg PO DAILY 10/25/17 [History] 3 Allergy/AdvReac Type Severity Reaction Status Date / Time ragweed pollen Allergy Cough Verified 10/25/17 19:44 nifedipine AdvReac Dizzy & Verified 10/25/17 20:33 Irritable All Systems Review: The remainder of the systems were reviewed and are negative - Cardiovascular Cardiovascular: as per HPI, dyspnea on exertion, leg edema Physical Examination Vital Signs, Last 4 Hours Vital Signs Temperature 97.6 F 10/25/17 19:44 Pulse Rate 72 10/25/17 19:44 Respiratory Rate 16 10/25/17 19:44 Blood Pressure 172/85 10/25/17 19:44 O2 Sat by Pulse Oximetry 93 10/25/17 19:44 Temperature 98.8 F 10/26/17 07:11 Pulse Rate 70 10/26/17 07:11 Respiratory Rate 16 10/26/17 10:22 Blood Pressure 132/52 10/26/17 07:11 O2 Sat by Pulse Oximetry 95 10/26/17 10:22 Oxygen Delivery Oxygen Delivery Room Air General: Conversant, No Apparent Distress HEENT: Atraumatic, Normocephaly, Mucus Membranes Moist Neck: No JVD, Normal carotid pulses Cardiac: Normal S1 and S2, No Murmur, Other (Irregularly irregular ) Lungs: Other (Lung sounds diminished throughout. ) Neuro: Alert and responsive, No focal deficits noted Abdomen: Soft, Non-Tender Skin: No rashes noted on visualized skin Musculoskeletal: No Chest Wall Tenderness Extremities: No Clubbing, No Cyanosis, Normal Pulses, Other (1+ bilateral lower extremity pitting edema. ) Results 10/26/17 02:03 10/26/17 02:03 Lab Results Impressions Chest X-Ray 10/25/17 20:03 IMPRESSION: Findings most consistent with mild congestive heart failure. D/ / Avel Sarabia MD / Avel Sarabia MD Interpreting Provider: Avel Sarabia MD Active Medications Acetaminophen (Tylenol) 650 mg PO Q6HR PRN PRN Reason: Mild Pain/Fever Stop: 04/26/18 22:05 Albuterol Sulfate (Albuterol Inhaler) 2 puff IH Q4HWA LIANA Stop: 04/26/18 22:03 Last Admin: 10/26/17 10:36 Dose: Not Given Albuterol/Ipratropium (Duoneb) 3 ml IH [id number] LIANA Stop: 04/27/18 04:01 Last Admin: 10/26/17 10:22 Dose: 3 ml Atorvastatin Calcium (Lipitor) 40 mg PO HS LIANA Stop: 04/27/18 21:01 Calcitriol (Rocaltrol) 0.5 mcg PO DAILY LIANA Stop: 04/27/18 09:01 Last Admin: 10/26/17 10:32 Dose: 0.5 mcg Dextrose/Water (Dextrose 50% (Syg)) 25 ml IVP AD PRN PRN Reason: Hypoglycemia Stop: 04/26/18 22:03 Furosemide (Lasix) 40 mg IVP DAILY LIANA Stop: 04/27/18 12:01 Last Admin: 10/26/17 13:59 Dose: 40 mg Glucagon (Glucagen) 1 mg IM ONCE PRN PRN Reason: Hypoglycemia Stop: 04/26/18 22:03 Glucose (Gluctose) 15 gm PO ONCE PRN PRN Reason: Hypoglycemia Stop: 04/26/18 22:03 Glucose (Gluctose) 30 gm PO ONCE PRN PRN Reason: Hypoglycemia Stop: 04/26/18 22:03 Dextrose (Dextrose 5%) 1,000 mls @ 100 mls/hr IVC .Q10H PRN PRN Reason: HYPOGLYCEMIA Stop: 04/26/18 22:03 Insulin Detemir (Levemir) 25 unit SQ HS LIANA Stop: 04/27/18 21:01 Insulin Human Lispro (Humalog) 0 units SQ HS LIANA PRN Reason: Protocol Stop: 04/27/18 21:01 Insulin Human Lispro (Humalog) 0 units SQ TIDAC LIANA PRN Reason: Protocol Stop: 04/27/18 07:31 Last Admin: 10/26/17 12:47 Dose: Not Given Metoprolol Succinate (Toprol Xl) 100 mg PO DAILY [facility] Stop: 04/27/18 09:01 Last Admin: 10/26/17 10:30 Dose: Not Given Naloxone HCl (Narcan) 0.4 mg IVP Q2MIN PRN PRN Reason: SEE COMMENTS Stop: 04/26/18 22:05 Sodium Bicarbonate (Sodium Bicarbonate) 1,300 mg PO DAILY [facility] Stop: 04/27/18 09:01 Last Admin: 10/26/17 10:32 Dose: 1,300 mg Laboratory Tests 10/25/17 10/26/17 10/26/17 20:14 02:03 02:03 Hgb 9.9 L Creatinine 4.32 H Troponin I 0.06 H* 10/26/17 10/26/17 02:03 07:42 Hgb Creatinine Troponin I 0.07 H* 0.07 H* - Imaging and Cardiology Chest Xray: report reviewed Echo: report reviewed - EKG Interpretation EKG results cardiology: personally reviewed (ECG with alfonsofluvalentino, HR 63.), other (Telemetry reviewed with average HR previous 12 hours noted to be 67 a.flutter/ fib) Consult Discharge Plan - Plan Referrals: NONE,PCP [Primary Care Provider] -
--- NOTE | 2017-10-26 13:53 | IR Procedure Note ---
Date of procedure: 10/26/17 Consent Obtained: Verbal consent, Written consent Timeout: Correct patient and procedure verified, Correct site verified, Time out performed, Skin prep completed Local anesthetic: Lidocaine 1% Indications: Renal Failure Procedure Performed: Temp HD catheter placement Was there an rehabilitation assistant present: No Site/Technique: Temp HD catheter placed bedside Results/Findings: Patent right IJ vein Estimated blood loss (cc): 3 Complications: None; Tolerated procedure well Post Procedure Treatment Plan: Post procedure CXR pending Specimen: None
[2017-10-26] MEDS: Furosemide 40 MG/4 ML VIAL IVP SCH (13:59)
--- NOTE | 2017-10-26 15:30 | Internal Med Progress Note ---
Date of Encounter: 10/26/17 Time of Encounter: 15:28 - Assessment and plan (1) CKD (chronic kidney disease) Current Visit: Yes Status: Chronic Assessment and plan: per hx. Follows with [facility]. Only uric. Renal function appears to be worsening since 2014. Nephrology consult did and plan for temporary IJ hemodialysis catheter placement today with initiation of dialysis. Will need PermCath placement this admission (continue holding Plavix at this time. Nephrology following Qualifiers: Chronic kidney disease stage: stage 4 (severe) Qualified Code(s): N18.4 - Chronic kidney disease, stage 4 (severe) (2) Atrial flutter Current Visit: Yes Status: Acute Assessment and plan: A.flutter noted per ECG on 10/26/17; new onset. Rate controlled. Asymptomatic. Evaluated by Cardiology who noted [id number] score 5 (age, DM, CHF, HTN, CAD) and commended anticoagulation however unable to start due to temp HD catheter placement today and plan for permacath possibly Tuesday and anemia. Can consider coumadin due to CKD in outpatient setting per Cardiology recommendations. Repeat echo. Qualifiers: Atrial flutter type: unspecified Qualified Code(s): I48.92 - Unspecified atrial flutter (3) Anemia Current Visit: Yes Status: Chronic Assessment and plan: Hgb 11.2 on admission which appears baseline. Dropped to 9.9 on 10/26. No obvious/overt bleeding. Hemodynamically stable. Monitor repeat CBC, occult stool pending. Qualifiers: Anemia type: unspecified type Qualified Code(s): D64.9 - Anemia, unspecified (4) Diabetes mellitus type 2, insulin dependent Current Visit: No Status: Chronic Assessment and plan: Continue basal insulin. Continue insulin sliding scale. Continue Accu-Cheks. (5) Elevated troponin Current Visit: No Status: Chronic Assessment and plan: Patient's troponins are chronically elevated. Asymptomatic. Denies chest pain. EKG with no acute ST or T-wave changes. Suspect secondary to worsening renal function. Cardiology following. Repeat echo pending (6) Ischemic cardiomyopathy Current Visit: No Status: Chronic Assessment and plan: per hx. LVEF 29% per MUGA scan 02/2016. Appears volume overloaded with crackles , lower extremity edema. BNP elevated. Holding home Lasix, diuresed with IV Lasix. Of note, Priestly recommended to have ICD however patient has historically refused. Cardiology discussed risk of sudden cardiac with patient and and patient refuses to consider ICD or repeat imaging for LVEF. Repeat echocardiogram ordered nonetheless. Encouraged patient to be compliant with testing. Strict I's and O's, daily weight, renal diet. (7) Thrombocytopenia Current Visit: No Status: Acute Assessment and plan: It is actually better than previous. Seems to be chronic. We will continue to monitor. (8) Dyspnea Current Visit: Yes Status: Acute Assessment and plan: Patient has noticed dyspnea on exertion. He reports orthopnea. Suspect secondary to volume overload from his kidney disease and cardiomyopathy. Continue IV Lasix. Nephrology planing dialysis. Suspect his symptoms will improve with fluid removal. Qualifiers: Dyspnea type: dyspnea on exertion Qualified Code(s): R06.09 - Other forms of dyspnea (9) DVT prophylaxis Current Visit: Yes Status: Acute Assessment and plan: SCDs given thrombocytopenia. - Time Spent With Patient Total time spent is greater than 50% in coordination of care (as documented) at patient's floor/unit and/or counseling patient: - Subjective Interval history: Seen and examined at bedside, patient is new to me. Information obtained from chart review and patient report. Still with some shortness of breath and lower extremity edema. No chest pain. He is agreeable for temporary HD catheter placement and starting hemodialysis. - Constitutional Vitals: Temp Pulse Resp BP Pulse Ox 98.8 F 70 16 132/52 95 10/26/17 07:11 10/26/17 07:11 10/26/17 10:22 10/26/17 07:11 10/26/17 10:22 General appearance: Present: A&O X 3, morbidly obese, no acute distress - Head Head exam: Present: atraumatic, normocephalic - Eye Eye exam: Present: PERRL, conjuntiva pink, sclera anicteric Pupils: Present: PERRL - Neck Neck exam general surgery: Present: supple, trachea midline. Absent: lymphadenopathy - Respiratory Respiratory exam: Present: CTAB. Absent: accessory muscle use, rales, rhonchi, wheezes - Cardiovascular Cardiovascular exam: Present: RRR, +S1, +S2. Absent: diastolic murmur, gallop, rubs, systolic murmur - GI/Abdominal GI/Abdominal exam: Present: normal bowel sounds, soft, no peritoneal signs. Absent: distended, tenderness - Extremities Exam Extremities exam: Present: pedal edema, warm, radial pulses palpable and symmetrical. Absent: calf tenderness, cyanotic - Neurological Exam Neurological exam: Present: CN II-XII intact, oriented X3, no focal deficits. Absent: pronater drift, facial droop, speech deficit - Skin Skin exam: Present: dry, intact Internal Medicine: Result - Labs CBC & Chem 7: 10/26/17 02:03 10/26/17 02:03 Labs: Short CBC 10/26/17 Range/Units 02:03 WBC 6.8 (4.3-11.1) K/mcL Hgb 9.9 L (12.9-16.9) g/dL Hct 30.4 L (37.5-50.1) % Plt Count 126 L (140-400) K/mcL Neutrophils # 5.1 (1.6-8.9) K/mcL BMP 10/26/17 02:03 Sodium 139 Potassium 4.3 Chloride 111 H Carbon Dioxide 19 L BUN 69 H Creatinine 4.32 H Glucose 250 H Calcium 8.8 Cardiac Enzymes 10/26/17 10/26/17 Range/Units 02:03 07:42 Troponin I 0.07 H* 0.07 H* (< 0.04) ng/mL - ABG Interpretation ABG results: PT/INR, D-dimer PT 12.2 Seconds (9.4-12.1) H 10/25/17 20:14 - Impressions Impressions Guidance Needle Placement Ultrasound 10/26/17 00:00 IMPRESSION: Ultrasound-guided temporary hemodialysis catheter placement. No immediate complications. A postprocedure radiograph has been performed, confirming positioning in the SVC. D/ / Octavio Fischer MD / Octavio Fischer MD Interpreting Provider: Octavio Fischer MD Insertion Non-Tunneled Catheter 10/26/17 00:00 IMPRESSION: Ultrasound-guided temporary hemodialysis catheter placement. No immediate complications. A postprocedure radiograph has been performed, confirming positioning in the SVC. D/ / Octavio Fischer MD / Octavio Fischer MD Interpreting Provider: Octavio Fischer MD Chest X-Ray 10/26/17 13:47 IMPRESSION: Interval placement of a right IJ approach temporary hemodialysis catheter with the tip in the mid SVC. No procedural related complication. Congestive failure. D/ / Adrian Cross MD / Adrian Cross MD Interpreting Provider: Adrian Cross MD Consult Discharge Plan - Plan Referrals: NONE,PCP [Primary Care Provider] -
--- NOTE | 2017-10-26 17:18 | Electrocardiograph Report ---
[address] [place] [address] Test Date: 2017-10-26 Pat Name: Efe Price Department: 113 Room: 3B Gender: M Center Consultant: : 1945 Requested By: Elizabeth Wolf Order Number: [id number] Reading MD: Patria Joseph Measurements Intervals [place] Rate: 63 P: [place]: 0 QRS: 1 QRSD: 125 T: 151 QT: 466 QTc: 474 Interpretive Statements ATRIAL FLUTTER/TACHYCARDIA INFERIOR MYOCARDIAL INFARCTION, OF INDETERMINATE AGE Electronically Signed On 10-26-2017 17:17:08 EDT by Patria Joseph
--- NOTE | 2017-10-26 19:59 | Electrocardiograph Report ---
[address] [address] Test Date: 2017-10-25 Pat Name: Efe Price Department: 102 Room: 3B Gender: M Song Writer: James : 1945 Requested By: Mehrdad Rosas Order Number: [id number] Reading MD: Kelvin Way Measurements Intervals [place] Rate: 89 P: 258 MS: 181 QRS: 15 QRSD: 126 T: 161 QT: 411 QTc: 458 Interpretive Statements ATRIAL FLUTTER WITH VARIABLE CONDUCTION Electronically Signed On 10-26-2017 19:58:[address]
[2017-10-26] MEDS ORDERED: NON-FORMULARY MEDICATION 1 EACH EACH (Insulin Glargine [Lantus] 25 UNIT) SQ SCH (21:00)
[2017-10-26] MEDS: Insulin DETEMIR 100 UNIT/ML X5UNITS SQ SCH (21:41)
[2017-10-27] MEDS: Ipratropium/Albuterol Neb 3 ML IH SCH ×4 (03:16→22:40)
[2017-10-27] MEDS ORDERED: *HR* Heparin 10,000 UNIT/10 ML VIAL IV PRN (07:17)
[2017-10-27] MEDS ORDERED: 0.9 % Sodium Chloride 250 ML IVC PRN (07:17)
[2017-10-27 07:18] LABS: Calcium 8.7 mg/dL (8.6-10.3); Potassium 3.9 mEq/L (3.5-5.1)
[2017-10-27 07:29] LABS: Hematocrit 31.2 % (37.5-50.1); Hemoglobin 10.1 g/dL (12.9-16.9); Mean Corpuscular HGB Conc 32.4 g/dL (31.6-35.5); Mean Corpuscular Hemoglobin 28.9 pg (28.0-33.3); Mean Corpuscular Volume 89.4 fL (83.0-100.0); Mean Platelet Volume 9.6 fL (9.4-12.4); Platelet Count 124 K/mcL (140-400); Red Blood Count 3.49 M/mcL (4.19-5.50); Red Cell Distribution Width 13.7 % (11.5-14.5)
[2017-10-27] MEDS ORDERED: 0.9 % Sodium Chloride 1,000 ML PRIME SCH (07:30)
[2017-10-27] MEDS ORDERED: 0.9 % Sodium Chloride 1,000 ML ONE (07:37)
[2017-10-27] MEDS: Insulin LISPRO 300 UNITS/3 ML VIAL SQ SCH ×4 (07:52→20:51)
[2017-10-27] MEDS: Furosemide 40 MG/4 ML VIAL IVP SCH (07:52)
--- NOTE | 2017-10-27 10:11 | Event Note ---
Date of Encounter: 10/27/17 Time of Encounter: 10:10 - Cardiology Event Note Discussed potential repeat TTE with patient and . Patient and do not want to repeat TTE at this point, states they will discuss in outpatient setting. CArdiology will sign off and will follow in outpatient setting. Follow up set.
[2017-10-27] MEDS ORDERED: Mag Hydrox/Al Hydrox/Simeth 30 ML UDC PO PRN (11:38)
[2017-10-27] MEDS: Metoprolol XL (24 HR) Succ 50 MG TAB.ER.24H PO SCH (11:57)
--- NOTE | 2017-10-27 12:07 | Nephrology Progress Note ---
<Nenita Wilkinson - Last Filed: 10/27/17 12:20> Date of Encounter: 10/27/17 Time of Encounter: 12:05 - Assessment and Plan (1) ESRD on dialysis Status: Acute First HD treatment today for 2 hours Plan for 3 hours of HD tomorrow, and most likely again on Tuesday for 3 1/2 hours UOP 150ml/yesterday Continue strict I/Os Plavix on hold for IR to place permacath (4) Dyspnea Status: Acute Improving with HD Continue fluid restriction of 1.5 liters/day Qualifiers: Dyspnea type: dyspnea on exertion Qualified Code(s): R06.09 - Other forms of dyspnea (5) Vitamin D deficiency Status: Acute Vitamin D 25-OH .ow at 10 Stop Calcitroil Start Ergocalciferol 50,000 units one tab once a week x 12 weeks Subjective Principal diagnosis: ESRD on dialysis, dyspnea Interval history: Patient seen and examined. States he is feeling well and tolerated his first HD treatment this morning. Objective - Vital Signs Vital signs: Vital Signs Temp Pulse Resp BP Pulse Ox 10/27/17 11:50 97.5 F L 92 14 138/79 97 10/27/17 11:18 97.2 F L 20 10/27/17 10:50 145/65 10/27/17 10:35 144/65 10/27/17 10:20 132/64 10/27/17 10:05 167/90 10/27/17 09:50 162/71 10/27/17 09:35 178/72 10/27/17 09:20 158/70 10/27/17 09:05 170/76 10/27/17 08:50 97.2 F L 20 161/63 10/27/17 06:38 98.2 F 93 14 120/78 95 10/27/17 03:40 98.6 F 95 16 147/73 96 10/26/17 22:46 97.9 F 91 16 144/65 98 10/26/17 21:10 18 98 10/26/17 19:41 98.6 F 78 18 167/73 95 10/26/17 16:47 14 98 10/26/17 15:46 99.4 F 85 14 146/78 94 Intake and Output 10/26/17 10/27/17 10/27/17 23:59 07:59 15:59 Intake Total 600 / 600 0 / 0 600 / 600 Output Total 0 / 0 1600 / 1600 Balance 600 / 600 0 / 0 -1000 / -1000 Intake: Oral 600 / 600 0 / 0 0 / 0 Intake, Rinseback and Flushes 600 / 600 Output: Urine 0 / 0 0 / 0 Total Dialysis (HD) Output 1600 / 1600 Other: # Voids 1 Weight 123.6 kg Blood Glucose* 236 152 159 Hemodialysis Net Fluid Removed 1000 (mL) Patient Weight 10/27/17 23:59 Weight 123.6 kg - General Appearance General appearance: Present: obese EENT: Present: ATNC, mucous membranes moist, hearing intact, vision intact Neck: Present: supple Respiratory: Present: clear Cardiology: Present: no edema, normal S1, normal S2 Dialysis Vascular Access: Venous Catheter Gastrointestinal: Present: no tenderness, no guarding, obese Integumentary: Present: warm and dry Neurologic: Present: alert and oriented x3 Psychiatric: Present: mood/affect appropriate, cooperative - Lab 10/27/17 04:59 10/27/17 04:59 Most recent lab results Calcium 8.7 mg/dL (8.6-10.3) 10/27/17 04:59 Phosphorus 4.3 mg/dL (2.7-4.5) 10/25/17 21:13 Magnesium 1.9 mg/dL (1.6-2.6) 10/26/17 02:03 Consult Discharge Plan - Plan Instructions: Urinary Retention in Men (GEN) Additional Instructions: Please follow up with Dr Joseph and with urology as scheduled. Follow up with your PCP in the next 7-10 days for a recheck. Return to the ER if your symptoms return or worsen, or for any other problems or concerns. Resume your normal home medications and activities, diet as tolerated. Referrals: [facility] [Provider Group] - 11/14/17 8:30 am (This appointment will be with Dr. Uribe. ) Patria Joseph DO [Partnered Physician] - 11/30/17 11:15 am Prescriptions: Ferrous Sulfate 325 mg PO BID #60 tablet Sennosides/Docusate Sodium [Senna Plus] 1 each PO DAILY #30 tablet <Jessenia Tan - Last Filed: 05/03/18 23:13> Date of Encounter: 10/27/17 - Assessment and Plan (1) CKD (chronic kidney disease) stage 5, GFR less than 15 ml/min Status: Chronic (2) Dyspnea Status: Resolved Qualifiers: Dyspnea type: dyspnea on exertion Qualified Code(s): R06.09 - Other forms of dyspnea Objective - Lab 11/03/17 06:19 11/03/17 06:19 Most recent lab results Calcium 8.5 mg/dL (8.6-10.3) L 11/03/17 06:19 Phosphorus 4.3 mg/dL (2.7-4.5) 10/25/17 21:13 Magnesium 1.9 mg/dL (1.6-2.6) 10/26/17 02:03 - Attending Attestation I examined this patient and my medical decision-making was reviewed with the Resident Physician/LAUNDRY HOUSEKEEPER. I agree with the documented findings, disposition and treatment plan as described except to the extent set forth below. Pt seen and examined feeling good. s/p first HD today which he tolerated. Plan another HD session tomorrow. Strict I/Os advised. Renal diet advised. Plavix on hold for permcath by IR later in the week hopefully.
--- NOTE | 2017-10-27 17:43 | Internal Med Progress Note ---
Date of Encounter: 10/27/17 Time of Encounter: 17:40 - Assessment and plan (1) ESRD on dialysis Current Visit: Yes Status: Acute Assessment and plan: per hx. Follows with [facility]. Oliguric. Renal function appears to be worsening since 2014. Temporary IJ hemodialysis catheter placement with initiation of dialysis on 10/27/17. Will need PermCath placement this admission (continue holding Plavix at this time. Nephrology following (2) Atrial flutter Current Visit: Yes Status: Acute Assessment and plan: A.flutter noted per ECG on 10/26/17; new onset. Rate controlled. Asymptomatic. Evaluated by Cardiology who noted [id number] score 5 (age, DM, CHF, HTN, CAD) and commended anticoagulation however unable to start due to temp HD catheter placement today and plan for permacath possibly Tuesday and anemia. Can consider coumadin due to CKD in outpatient setting per Cardiology recommendations. Repeat echo. Qualifiers: Atrial flutter type: unspecified Qualified Code(s): I48.92 - Unspecified atrial flutter (3) Anemia Current Visit: Yes Status: Chronic Assessment and plan: Hgb 11.2 on admission which appears baseline. Dropped to 9.9 on 10/26. No obvious/overt bleeding. Hemodynamically stable. Monitor repeat CBC, occult stool pending. Hgb 10.1 on 10/27 Qualifiers: Anemia type: unspecified type Qualified Code(s): D64.9 - Anemia, unspecified (4) Diabetes mellitus type 2, insulin dependent Current Visit: No Status: Chronic Assessment and plan: Continue basal insulin. Continue insulin sliding scale. Continue Accu-Cheks. (5) Elevated troponin Current Visit: No Status: Chronic Assessment and plan: Patient's troponins are chronically elevated. Asymptomatic. Denies chest pain. EKG with no acute ST or T-wave changes. Suspect secondary to worsening renal function. Cardiology following. Repeat echo pending (6) Ischemic cardiomyopathy Current Visit: No Status: Chronic Assessment and plan: per hx. LVEF 29% per MUGA scan 02/2016. Appears volume overloaded with crackles , lower extremity edema. BNP elevated. Holding home Lasix, diuresed with IV Lasix. Of note, Priestly recommended to have ICD however patient has historically refused. Cardiology discussed risk of sudden cardiac with patient and and patient refuses to consider ICD or repeat imaging for LVEF. Patient now agreeable for repeat echocardiogram. Strict I's and O's, daily weight, renal diet. (7) Thrombocytopenia Current Visit: No Status: Acute Assessment and plan: It is actually better than previous. Seems to be chronic. We will continue to monitor. (8) Dyspnea Current Visit: Yes Status: Acute Assessment and plan: Patient has noticed dyspnea on exertion. He reports orthopnea. Suspect secondary to volume overload from his kidney disease and cardiomyopathy. Continue IV Lasix. Nephrology planing dialysis. Suspect his symptoms will improve with fluid removal. Qualifiers: Dyspnea type: dyspnea on exertion Qualified Code(s): R06.09 - Other forms of dyspnea (9) DVT prophylaxis Current Visit: Yes Status: Acute Assessment and plan: SCDs given thrombocytopenia. - Time Spent With Patient Total time spent is greater than 50% in coordination of care (as documented) at patient's floor/unit and/or counseling patient: - Subjective Interval history: Seen and examined at bedside; says he had uneventful night. No chest pain. Has some shortness of breath but significantly improved. Lower extremity edema improved as well. He is agreeable for repeat echocardiogram. - Constitutional Vitals: Temp Pulse Resp BP Pulse Ox 98.1 F 69 14 169/74 96 10/27/17 16:08 10/27/17 16:08 10/27/17 16:08 10/27/17 16:08 10/27/17 16:08 General appearance: Present: A&O X 3, morbidly obese, no acute distress - Head Head exam: Present: atraumatic, normocephalic - Eye Eye exam: Present: PERRL, conjuntiva pink, sclera anicteric Pupils: Present: PERRL - Neck Neck exam general surgery: Present: supple, trachea midline. Absent: lymphadenopathy - Respiratory Respiratory exam: Present: CTAB. Absent: accessory muscle use, rales, rhonchi, wheezes - Cardiovascular Cardiovascular exam: Present: RRR, +S1, +S2. Absent: diastolic murmur, gallop, rubs, systolic murmur - GI/Abdominal GI/Abdominal exam: Present: normal bowel sounds, soft, no peritoneal signs. Absent: distended, tenderness - Extremities Exam Extremities exam: Present: pedal edema, warm, radial pulses palpable and symmetrical. Absent: calf tenderness, cyanotic - Neurological Exam Neurological exam: Present: CN II-XII intact, oriented X3, no focal deficits. Absent: pronater drift, facial droop, speech deficit - Skin Skin exam: Present: dry, intact Internal Medicine: Result - Labs CBC & Chem 7: 10/27/17 04:59 10/27/17 04:59 Labs: Short CBC 10/27/17 Range/Units 04:59 WBC 6.8 (4.3-11.1) K/mcL Hgb 10.1 L (12.9-16.9) g/dL Hct 31.2 L (37.5-50.1) % Plt Count 124 L (140-400) K/mcL BMP 10/27/17 04:59 Sodium 141 Potassium 3.9 Chloride 115 H Carbon Dioxide 19 L BUN 65 H Creatinine 4.58 H Glucose 160 H Calcium 8.7 - ABG Interpretation ABG results: PT/INR, D-dimer PT 12.2 Seconds (9.4-12.1) H 10/25/17 20:14 Consult Discharge Plan - Plan Referrals: NONE,PCP [Primary Care Provider] -
[2017-10-27] MEDS: Insulin DETEMIR 100 UNIT/ML X5UNITS SQ SCH (20:51)
[2017-10-28] MEDS: Ipratropium/Albuterol Neb 3 ML IH SCH ×5 (03:52→22:40)
[2017-10-28 06:14] LABS: Hematocrit 31.3 % (37.5-50.1); Hemoglobin 10.1 g/dL (12.9-16.9); Mean Corpuscular HGB Conc 32.3 g/dL (31.6-35.5); Mean Corpuscular Hemoglobin 28.6 pg (28.0-33.3); Mean Corpuscular Volume 88.7 fL (83.0-100.0); Mean Platelet Volume 8.9 fL (9.4-12.4); Platelet Count 117 K/mcL (140-400); Red Blood Count 3.53 M/mcL (4.19-5.50); Red Cell Distribution Width 13.7 % (11.5-14.5)
[2017-10-28 06:34] LABS: Calcium 8.6 mg/dL (8.6-10.3); Potassium 3.9 mEq/L (3.5-5.1)
[2017-10-28] MEDS ORDERED: 0.9 % Sodium Chloride 2,000 ML ONE (07:15)
[2017-10-28] MEDS ORDERED: 0.9 % Sodium Chloride 250 ML IVC PRN (07:32)
[2017-10-28] MEDS ORDERED: *HR* Heparin 10,000 UNIT/10 ML VIAL IV PRN (07:32)
[2017-10-28] MEDS ORDERED: 0.9 % Sodium Chloride 1,000 ML PRIME SCH (07:45)
[2017-10-28] MEDS: Insulin LISPRO 300 UNITS/3 ML VIAL SQ SCH ×4 (07:54→22:12)
[2017-10-28] MEDS ORDERED: Perflutren Lipid Microsphere 1.3 ML in 0.9 % Sodium Chloride 8.7 ML IVP ONE (08:22)
[2017-10-28] MEDS ORDERED: Perflutren Lipid Microsphere 2 ML VIAL ONE (08:35)
[2017-10-28] MEDS ORDERED: Ondansetron ODT 4 MG TAB.RAPDIS SL PRN (10:46)
--- NOTE | 2017-10-28 13:13 | Nephrology Progress Note ---
Date of Encounter: 10/28/17 Time of Encounter: 13:03 - Assessment and Plan (1) ESRD on dialysis Current Visit: Yes Status: Acute HD MWF. Renal vitamins. Renal dose medications. Renal diet. Additional dialysis and ultrafiltration as needed. Patient was seen on dialysis. Subjective Principal diagnosis: ESRD on dialysis, dyspnea Interval history: Patient was seen on dialysis. He has no new complaint. He has dyspnea with exertion that is unchanged. Objective - Vital Signs Vital signs: Vital Signs Temp Pulse Resp BP Pulse Ox 10/28/17 12:40 97 F L 18 135/89 10/28/17 12:15 163/76 10/28/17 12:00 145/83 10/28/17 11:45 173/71 10/28/17 11:30 169/73 10/28/17 11:15 135/68 10/28/17 11:00 172/79 10/28/17 10:45 179/82 10/28/17 10:30 149/68 10/28/17 10:15 167/90 10/28/17 10:00 160/67 10/28/17 09:45 149/76 10/28/17 09:30 148/75 10/28/17 09:15 97.2 F L 18 164/79 10/28/17 07:52 97.8 F 70 18 145/75 99 Intake and Output 10/27/17 10/28/17 10/28/17 23:59 07:59 15:59 Intake Total 600 / 600 Output Total 250 / 250 2516 / 2516 Balance -250 / -250 -1916 / -1915 Intake: Oral 0 / 0 Intake, Rinseback and Flushes 600 / 600 Output: Urine 250 / 250 0 / 0 Total Dialysis (HD) Output 2516 / 2516 Other: Blood Glucose* 116 Hemodialysis Net Fluid Removed 1915 (mL) - General Appearance General appearance: Present: well-developed, well-nourished Exam: Patient seen on dialysis. EENT: Present: ATNC Cardiology: Present: edema, regular rate Neurologic: Present: alert and oriented x3 Psychiatric: Present: mood/affect appropriate - Lab 10/28/17 05:57 10/28/17 05:57 Most recent lab results Calcium 8.6 mg/dL (8.6-10.3) 10/28/17 05:57 Phosphorus 4.3 mg/dL (2.7-4.5) 10/25/17 21:13 Magnesium 1.9 mg/dL (1.6-2.6) 10/26/17 02:03 Consult Discharge Plan - Plan Referrals: NONE,PCP [Primary Care Provider] -
[2017-10-28] MEDS: Metoprolol XL (24 HR) Succ 50 MG TAB.ER.24H PO SCH (13:36)
[2017-10-28] MEDS: Furosemide 40 MG/4 ML VIAL IVP SCH (13:37)
[2017-10-28] MEDS: Insulin DETEMIR 100 UNIT/ML X5UNITS SQ SCH (22:13)
[2017-10-29] MEDS: Ipratropium/Albuterol Neb 3 ML IH SCH ×4 (03:37→22:13)
[2017-10-29 05:41] LABS: Hematocrit 31.8 % (37.5-50.1); Hemoglobin 10.2 g/dL (12.9-16.9); Mean Corpuscular HGB Conc 32.1 g/dL (31.6-35.5); Mean Corpuscular Hemoglobin 28.5 pg (28.0-33.3); Mean Corpuscular Volume 88.8 fL (83.0-100.0); Mean Platelet Volume 9.4 fL (9.4-12.4); Platelet Count 118 K/mcL (140-400); Red Blood Count 3.58 M/mcL (4.19-5.50); Red Cell Distribution Width 13.4 % (11.5-14.5)
[2017-10-29 05:59] LABS: Calcium 8.3 mg/dL (8.6-10.3); Potassium 4.4 mEq/L (3.5-5.1)
[2017-10-29] MEDS: Insulin LISPRO 300 UNITS/3 ML VIAL SQ SCH ×4 (08:47→21:55)
[2017-10-29] MEDS: Furosemide 40 MG/4 ML VIAL IVP SCH (08:48)
[2017-10-29] MEDS: Metoprolol XL (24 HR) Succ 50 MG TAB.ER.24H PO SCH (08:49)
[2017-10-29] MEDS ORDERED: 0.9 % Sodium Chloride 250 ML IVC PRN (10:27)
[2017-10-29] MEDS ORDERED: 0.9 % Sodium Chloride 1,000 ML PRIME SCH (10:30)
--- NOTE | 2017-10-29 10:43 | Nephrology Progress Note ---
Date of Encounter: 10/29/17 Time of Encounter: 10:41 - Assessment and Plan (1) ESRD on dialysis Current Visit: Yes Status: Acute HD MWF. Renal vitamins. Renal dose medications. Renal diet. Additional dialysis and ultrafiltration as needed. Patient was seen on dialysis. (2) Constipation Current Visit: Yes Status: Acute start fiber therapy. Qualifiers: Qualified Code(s): K59.00 - Constipation, unspecified Subjective Principal diagnosis: ESRD on dialysis, dyspnea Interval history: Patient was seen on dialysis. He has no new complaint. He has dyspnea with exertion that may be getting better. He is complaining of constipation. Objective - Vital Signs Vital signs: Vital Signs Temp Pulse Resp BP Pulse Ox 10/29/17 06:00 97.8 F 78 16 149/79 97 10/29/17 02:27 98.4 F 68 16 109/63 96 10/28/17 22:42 18 97 10/28/17 22:12 99.0 F 88 16 136/71 92 10/28/17 18:23 99.2 F 71 16 123/71 95 10/28/17 15:49 98.5 F 71 14 117/74 93 10/28/17 15:27 16 94 10/28/17 13:34 97.7 F 82 18 141/68 93 10/28/17 12:40 97 F L 18 135/89 10/28/17 12:15 163/76 10/28/17 12:00 145/83 10/28/17 11:45 173/71 10/28/17 11:30 169/73 10/28/17 11:15 135/68 10/28/17 11:00 172/79 10/28/17 10:45 179/82 Intake and Output 10/28/17 10/29/17 10/29/17 23:59 07:59 15:59 Intake Total 240 / 240 Output Total 180 / 180 180 / 180 Balance -180 / -180 -180 / -180 240 / 240 Intake: Oral 240 / 240 Output: Urine 180 / 180 180 / 180 Other: Meal Breakfast Percent of Meal Consumed 100% Weight 122.4 kg Blood Glucose* 192 146 Patient Weight 10/29/17 23:59 Weight 122.4 kg - General Appearance General appearance: Present: well-developed, well-nourished EENT: Present: ATNC Cardiology: Present: edema, regular rate Dialysis Vascular Access: Venous Catheter Neurologic: Present: alert and oriented x3 Psychiatric: Present: mood/affect appropriate - Lab 10/29/17 05:13 10/29/17 05:13 Most recent lab results Calcium 8.3 mg/dL (8.6-10.3) L 10/29/17 05:13 Phosphorus 4.3 mg/dL (2.7-4.5) 10/25/17 21:13 Magnesium 1.9 mg/dL (1.6-2.6) 10/26/17 02:03 Consult Discharge Plan - Plan Referrals: NONE,PCP [Primary Care Provider] -
--- NOTE | 2017-10-29 14:42 | Internal Med Progress Note ---
Date of Encounter: 10/29/17 Time of Encounter: 14:40 - Assessment and plan (1) ESRD on dialysis Current Visit: Yes Status: Acute Assessment and plan: per hx. Follows with [facility]. Oliguric. Renal function appears to be worsening since 2014. Temporary IJ hemodialysis catheter placement with initiation of dialysis on 10/27/17. Will need PermCath placement this admission (continue holding Plavix at this time. Nephrology following (2) Atrial flutter Current Visit: Yes Status: Acute Assessment and plan: A.flutter noted per ECG on 10/26/17; new onset. Rate controlled. Asymptomatic. Evaluated by Cardiology who noted [id number] score 5 (age, DM, CHF, HTN, CAD) and commended anticoagulation however unable to start due to temp HD catheter placement today and plan for permacath possibly Tuesday and anemia. Can consider coumadin due to CKD in outpatient setting per Cardiology recommendations. Qualifiers: Atrial flutter type: unspecified Qualified Code(s): I48.92 - Unspecified atrial flutter (3) Anemia Current Visit: Yes Status: Chronic Assessment and plan: Hgb 11.2 on admission which appears baseline. Dropped to 9.9 on 10/26. No obvious/overt bleeding. Hemodynamically stable. Monitor repeat CBC, occult stool pending. Hgb 10.2 on 10/29 Qualifiers: Anemia type: unspecified type Qualified Code(s): D64.9 - Anemia, unspecified (4) Diabetes mellitus type 2, insulin dependent Current Visit: No Status: Chronic Assessment and plan: Continue basal insulin. Continue insulin sliding scale. Continue Accu-Cheks. (5) Elevated troponin Current Visit: No Status: Chronic Assessment and plan: Patient's troponins are chronically elevated. Asymptomatic. Denies chest pain. EKG with no acute ST or T-wave changes. Suspect secondary to worsening renal function. Cardiology following. Repeat echo pending (6) Ischemic cardiomyopathy Current Visit: No Status: Chronic Assessment and plan: per hx. LVEF 29% per [facility]GA scan 02/2016. Appears volume overloaded with crackles , lower extremity edema. BNP elevated. Holding home Lasix, diuresed with IV Lasix. Repeat TTE 10/29/17 with EF 20-25%, severe systolic dysfunction, indeterminate diastolic dysfunction, no LV thrombus; essentially unchanged. Of note, previously recommended to have ICD however patient has historically refused. Cardiology discussed risk of sudden cardiac with patient and and patient refuses to consider ICD. Strict I's and O's, daily weight, renal diet. COnt IV lasix for now; anticipate transitioning to oral Lasix in the next 24-48 hours (7) Thrombocytopenia Current Visit: No Status: Acute Assessment and plan: It is actually better than previous. Seems to be chronic. We will continue to monitor. (8) Dyspnea Current Visit: Yes Status: Acute Assessment and plan: Patient has noticed dyspnea on exertion. He reports orthopnea. Suspect secondary to volume overload from his kidney disease and cardiomyopathy. Dyspnea improving with IV diuresis and HD. Qualifiers: Dyspnea type: dyspnea on exertion Qualified Code(s): R06.09 - Other forms of dyspnea (9) DVT prophylaxis Current Visit: Yes Status: Acute Assessment and plan: SCDs given thrombocytopenia. - Time Spent With Patient Total time spent is greater than 50% in coordination of care (as documented) at patient's floor/unit and/or counseling patient: - Subjective Interval history: Seen and examined at bedside; says he had uneventful night. Sitting up in chair Bedside, complaining of lower back pain. Says shortness of breath is significantly improved No chest pain. Reviewed results of echocardiogram with patient and . - Constitutional Vitals: Temp Pulse Resp BP Pulse Ox 97.7 F 80 16 118/55 97 10/29/17 13:36 10/29/17 13:36 10/29/17 13:36 10/29/17 13:36 10/29/17 13:36 General appearance: Present: A&O X 3, morbidly obese, no acute distress - Head Head exam: Present: atraumatic, normocephalic - Eye Eye exam: Present: PERRL, conjuntiva pink, sclera anicteric Pupils: Present: PERRL - Neck Neck exam general surgery: Present: supple, trachea midline. Absent: lymphadenopathy - Respiratory Respiratory exam: Present: CTAB. Absent: accessory muscle use, rales, rhonchi, wheezes - Cardiovascular Cardiovascular exam: Present: irregular rhythm, +S1, +S2. Absent: diastolic murmur, gallop, rubs, systolic murmur - GI/Abdominal GI/Abdominal exam: Present: normal bowel sounds, soft, no peritoneal signs. Absent: distended, tenderness - Extremities Exam Extremities exam: Present: warm, radial pulses palpable and symmetrical. Absent : calf tenderness, cyanotic, pedal edema - Neurological Exam Neurological exam: Present: CN II-XII intact, oriented X3, no focal deficits. Absent: pronater drift, facial droop, speech deficit - Skin Skin exam: Present: dry, intact Internal Medicine: Result - Labs CBC & Chem 7: 10/29/17 05:13 10/29/17 05:13 Labs: Short CBC 10/29/17 Range/Units 05:13 WBC 6.8 (4.3-11.1) K/mcL Hgb 10.2 L (12.9-16.9) g/dL Hct 31.8 L (37.5-50.1) % Plt Count 118 L (140-400) K/mcL BMP 10/29/17 05:13 Sodium 138 Potassium 4.4 Chloride 105 Carbon Dioxide 25 BUN 45 H Creatinine 3.73 H Glucose 188 H Calcium 8.3 L - ABG Interpretation ABG results: PT/INR, D-dimer PT 12.2 Seconds (9.4-12.1) H 10/25/17 20:14 Consult Discharge Plan - Plan Referrals: NONE,PCP [Primary Care Provider] -
[2017-10-29] MEDS: Insulin DETEMIR 100 UNIT/ML X5UNITS SQ SCH (21:55)
[2017-10-30] MEDS: Ipratropium/Albuterol Neb 3 ML IH SCH ×4 (03:22→22:14)
[2017-10-30 06:03] LABS: Hematocrit 29.5 % (37.5-50.1); Hemoglobin 9.8 g/dL (12.9-16.9); Mean Corpuscular HGB Conc 33.2 g/dL (31.6-35.5); Mean Corpuscular Hemoglobin 29.1 pg (28.0-33.3); Mean Corpuscular Volume 87.5 fL (83.0-100.0); Mean Platelet Volume 9.3 fL (9.4-12.4); Platelet Count 115 K/mcL (140-400); Red Blood Count 3.37 M/mcL (4.19-5.50); Red Cell Distribution Width 13.5 % (11.5-14.5)
[2017-10-30 06:22] LABS: Calcium 8.2 mg/dL (8.6-10.3); Potassium 4.1 mEq/L (3.5-5.1)
--- NOTE | 2017-10-30 07:53 | Internal Med Progress Note ---
Date of Encounter: 10/28/17 Time of Encounter: 15:00 - Assessment and plan (1) ESRD on dialysis Current Visit: Yes Status: Acute Assessment and plan: per hx. Follows with [facility]. Oliguric. Renal function appears to be worsening since 2014. Temporary IJ hemodialysis catheter placement with initiation of dialysis on 10/27/17. Will need PermCath placement this admission (continue holding Plavix at this time. Nephrology following (2) Atrial flutter Current Visit: Yes Status: Acute Assessment and plan: A.flutter noted per ECG on 10/26/17; new onset. Rate controlled. Asymptomatic. Evaluated by Cardiology who noted [id number] score 5 (age, DM, CHF, HTN, CAD) and commended anticoagulation however unable to start due to temp HD catheter placement today and plan for permacath possibly Tuesday and anemia. Can consider coumadin due to CKD in outpatient setting per Cardiology recommendations. Qualifiers: Atrial flutter type: unspecified Qualified Code(s): I48.92 - Unspecified atrial flutter (3) Anemia Current Visit: Yes Status: Chronic Assessment and plan: Hgb 11.2 on admission which appears baseline. Dropped to 9.9 on 10/26. No obvious/overt bleeding. Hemodynamically stable. Monitor repeat CBC, occult stool pending. Hgb 10.2 on 10/29 Qualifiers: Anemia type: unspecified type Qualified Code(s): D64.9 - Anemia, unspecified (4) Diabetes mellitus type 2, insulin dependent Current Visit: No Status: Chronic Assessment and plan: Continue basal insulin. Continue insulin sliding scale. Continue Accu-Cheks. (5) Elevated troponin Current Visit: No Status: Chronic Assessment and plan: Patient's troponins are chronically elevated. Asymptomatic. Denies chest pain. EKG with no acute ST or T-wave changes. Suspect secondary to worsening renal function. Cardiology following. Repeat echo pending (6) Ischemic cardiomyopathy Current Visit: No Status: Chronic Assessment and plan: per hx. LVEF 29% per [facility]GA scan 02/2016. Appears volume overloaded with crackles , lower extremity edema. BNP elevated. Holding home Lasix, diuresed with IV Lasix. Repeat TTE 10/29/17 with EF 20-25%, severe systolic dysfunction, indeterminate diastolic dysfunction, no LV thrombus; essentially unchanged. Of note, previously recommended to have ICD however patient has historically refused. Cardiology discussed risk of sudden cardiac with patient and and patient refuses to consider ICD. Strict I's and O's, daily weight, renal diet. COnt IV lasix for now; anticipate transitioning to oral Lasix in the next 24-48 hours (7) Thrombocytopenia Current Visit: No Status: Acute Assessment and plan: It is actually better than previous. Seems to be chronic. We will continue to monitor. (8) Dyspnea Current Visit: Yes Status: Acute Assessment and plan: Patient has noticed dyspnea on exertion. He reports orthopnea. Suspect secondary to volume overload from his kidney disease and cardiomyopathy. Dyspnea improving with IV diuresis and HD. Qualifiers: Dyspnea type: dyspnea on exertion Qualified Code(s): R06.09 - Other forms of dyspnea (9) DVT prophylaxis Current Visit: Yes Status: Acute Assessment and plan: SCDs given thrombocytopenia. - Time Spent With Patient Total time spent is greater than 50% in coordination of care (as documented) at patient's floor/unit and/or counseling patient: - Subjective Interval history: This note is a late entry for 10/28/2017: Seen and examined at bedside; says he had uneventful night. He is returned from dialysis. Still with some shortness of breath that is worse with exertion and relieved with rest but overall improved. Feels lower extremity edema is improved as well. - Constitutional Vitals: Temp Pulse Resp BP Pulse Ox 97.9 F 72 18 134/70 94 10/30/17 07:42 10/30/17 07:42 10/30/17 07:42 10/30/17 07:42 10/30/17 07:42 General appearance: Present: A&O X 3, morbidly obese, no acute distress - Head Head exam: Present: atraumatic, normocephalic - Eye Eye exam: Present: PERRL, conjuntiva pink, sclera anicteric Pupils: Present: PERRL - Neck Neck exam general surgery: Present: supple, trachea midline. Absent: lymphadenopathy - Respiratory Respiratory exam: Present: CTAB. Absent: accessory muscle use, rales, rhonchi, wheezes - Cardiovascular Cardiovascular exam: Present: irregular rhythm, +S1, +S2. Absent: diastolic murmur, gallop, rubs, systolic murmur - GI/Abdominal GI/Abdominal exam: Present: normal bowel sounds, soft, no peritoneal signs. Absent: distended, tenderness - Extremities Exam Extremities exam: Present: warm, radial pulses palpable and symmetrical. Absent : calf tenderness, cyanotic, pedal edema - Neurological Exam Neurological exam: Present: CN II-XII intact, oriented X3, no focal deficits. Absent: pronater drift, facial droop, speech deficit - Skin Skin exam: Present: dry, intact Internal Medicine: Result - Labs CBC & Chem 7: 10/30/17 05:42 10/30/17 05:42 Labs: Short CBC 10/30/17 Range/Units 05:42 WBC 6.5 (4.3-11.1) K/mcL Hgb 9.8 L (12.9-16.9) g/dL Hct 29.5 L (37.5-50.1) % Plt Count 115 L (140-400) K/mcL BMP 10/30/17 05:42 Sodium 137 Potassium 4.1 Chloride 104 Carbon Dioxide 25 BUN 37 H Creatinine 3.62 H Glucose 180 H Calcium 8.2 L - ABG Interpretation ABG results: PT/INR, D-dimer PT 12.2 Seconds (9.4-12.1) H 10/25/17 20:14 Consult Discharge Plan - Plan Referrals: NONE,PCP [Primary Care Provider] -
[2017-10-30] MEDS: Furosemide 40 MG/4 ML VIAL IVP SCH (09:58)
[2017-10-30] MEDS: Metoprolol XL (24 HR) Succ 50 MG TAB.ER.24H PO SCH (09:58)
[2017-10-30] MEDS: Insulin LISPRO 300 UNITS/3 ML VIAL SQ SCH ×4 (10:11→22:25)
--- NOTE | 2017-10-30 10:43 | Nephrology Progress Note ---
Date of Encounter: 10/30/17 Time of Encounter: 10:42 - Assessment and Plan (1) ESRD on dialysis Current Visit: Yes Status: Acute HD MWF. Renal vitamins. Renal dose medications. Renal diet. Additional dialysis and ultrafiltration as needed. (2) Constipation Current Visit: Yes Status: Acute start fiber therapy. Qualifiers: Qualified Code(s): K59.00 - Constipation, unspecified Subjective Principal diagnosis: ESRD on dialysis, dyspnea Interval history: Patient was seen He has no new complaint. He has dyspnea with exertion that may be getting better. Objective - Vital Signs Vital signs: Vital Signs Temp Pulse Resp BP Pulse Ox 10/30/17 10:09 16 98 10/30/17 07:42 97.9 F 72 18 134/70 94 10/30/17 03:48 98.0 F 63 19 127/51 96 10/29/17 23:43 97.9 F 71 14 129/76 97 10/29/17 22:14 18 95 10/29/17 19:29 97.9 F 94 16 160/78 95 10/29/17 16:44 97.9 F 66 16 129/71 95 10/29/17 15:24 16 96 10/29/17 13:36 97.7 F 80 16 118/55 97 10/29/17 13:05 97.7 F 20 157/75 10/29/17 12:37 150/68 10/29/17 12:30 123/64 10/29/17 12:15 132/84 10/29/17 12:00 143/96 10/29/17 11:45 137/76 10/29/17 11:30 144/72 10/29/17 11:15 142/80 10/29/17 11:00 148/70 10/29/17 10:45 139/76 Intake and Output 10/29/17 10/30/17 10/30/17 23:59 07:59 15:59 Intake Total 100 / 100 700 / 700 Output Total 480 / 480 450 / 450 Balance -380 / -380 250 / 250 Intake: Oral 100 / 100 700 / 700 Output: Urine 480 / 480 450 / 450 Other: Meal Breakfast Percent of Meal Consumed 100% Weight 120.5 kg Blood Glucose* 171 145 Patient Weight 10/30/17 23:59 Weight 120.5 kg - General Appearance General appearance: Present: well-developed, well-nourished, obese EENT: Present: ATNC - Lab 10/30/17 05:42 10/30/17 05:42 Most recent lab results Calcium 8.2 mg/dL (8.6-10.3) L 10/30/17 05:42 Phosphorus 4.3 mg/dL (2.7-4.5) 10/25/17 21:13 Magnesium 1.9 mg/dL (1.6-2.6) 10/26/17 02:03 Consult Discharge Plan - Plan Referrals: NONE,PCP [Primary Care Provider] -
--- NOTE | 2017-10-30 15:35 | Internal Med Progress Note ---
Date of Encounter: 10/30/17 Time of Encounter: 15:33 - Assessment and plan (1) ESRD on dialysis Current Visit: Yes Status: Acute Assessment and plan: per hx. Follows with [facility]. Oliguric. Renal function appears to be worsening since 2014. Temporary IJ hemodialysis catheter placement with initiation of dialysis on 10/27/17. Plan for tunneled hemodialysis line on 10/31/17. NPO at midnight. Nephrology following (2) Atrial flutter Current Visit: Yes Status: Acute Assessment and plan: A.flutter noted per ECG on 10/26/17; new onset. Rate controlled. Asymptomatic. Evaluated by Cardiology who noted [id number] score 5 (age, DM, CHF, HTN, CAD) and commended anticoagulation however unable to start due to temp HD catheter placement today and plan for permacath possibly Tuesday and anemia. Can consider coumadin due to CKD in outpatient setting per Cardiology recommendations. Qualifiers: Atrial flutter type: unspecified Qualified Code(s): I48.92 - Unspecified atrial flutter (3) Anemia Current Visit: Yes Status: Chronic Assessment and plan: Hgb 11.2 on admission which appears baseline. Dropped to 9.9 on 10/26. No obvious/overt bleeding. Hemodynamically stable. Monitor repeat CBC, occult stool pending. Hgb 9.8 on 10/30; suspect anemia of chronic disease combined with iatrogenic anemia from daily blood draws. Qualifiers: Anemia type: unspecified type Qualified Code(s): D64.9 - Anemia, unspecified (4) Diabetes mellitus type 2, insulin dependent Current Visit: No Status: Chronic Assessment and plan: Continue basal insulin. Continue insulin sliding scale. Continue Accu-Cheks. (5) Elevated troponin Current Visit: No Status: Chronic Assessment and plan: Patient's troponins are chronically elevated. Asymptomatic. Denies chest pain. EKG with no acute ST or T-wave changes. Suspect secondary to worsening renal function. Cardiology following. Repeat echo pending (6) Ischemic cardiomyopathy Current Visit: No Status: Chronic Assessment and plan: per hx. LVEF 29% per MUGA scan 02/2016. Appears volume overloaded with crackles , lower extremity edema. BNP elevated. Holding home Lasix, diuresed with IV Lasix. Repeat TTE 10/29/17 with EF 20-25%, severe systolic dysfunction, indeterminate diastolic dysfunction, no LV thrombus; essentially unchanged. Of note, previously recommended to have ICD however patient has historically refused. Cardiology discussed risk of sudden cardiac with patient and and patient refuses to consider ICD. Strict I's and O's, daily weight, renal diet. COnt IV lasix for now; anticipate transitioning to oral Lasix in the next 24-48 hours (7) Thrombocytopenia Current Visit: No Status: Acute Assessment and plan: per chart review, appears to be chronic. Stable, no active bleeding. (8) Dyspnea Current Visit: Yes Status: Acute Assessment and plan: Patient has noticed dyspnea on exertion. He reports orthopnea. Suspect secondary to volume overload from his kidney disease and cardiomyopathy. Dyspnea improving with IV diuresis and HD. Qualifiers: Dyspnea type: dyspnea on exertion Qualified Code(s): R06.09 - Other forms of dyspnea (9) DVT prophylaxis Current Visit: Yes Status: Acute Assessment and plan: SCDs given thrombocytopenia. - Time Spent With Patient Total time spent is greater than 50% in coordination of care (as documented) at patient's floor/unit and/or counseling patient: - Subjective Interval history: Seen and examined at bedside. Sitting up in chair bedside. Says lower back pain is improved from yesterday. He tells me that he possibly may have peritoneal dialysis catheter placed this admission and well. He is aware of need to be nothing by mouth at midnight for tunneled dialysis catheter placement. Denies chest pain, no shortness of breath. Swelling in lower external knees continue to improve. - Constitutional Vitals: Temp Pulse Resp BP Pulse Ox 98.0 F 71 18 143/77 96 10/30/17 11:35 10/30/17 11:35 10/30/17 11:35 10/30/17 11:35 10/30/17 11:35 General appearance: Present: A&O X 3, morbidly obese, no acute distress - Head Head exam: Present: atraumatic, normocephalic - Eye Eye exam: Present: PERRL, conjuntiva pink, sclera anicteric Pupils: Present: PERRL - Neck Neck exam general surgery: Present: supple, trachea midline. Absent: lymphadenopathy - Respiratory Respiratory exam: Present: CTAB. Absent: accessory muscle use, rales, rhonchi, wheezes - Cardiovascular Cardiovascular exam: Present: RRR, +S1, +S2. Absent: diastolic murmur, gallop, rubs, systolic murmur - GI/Abdominal GI/Abdominal exam: Present: normal bowel sounds, soft, no peritoneal signs. Absent: distended, tenderness - Extremities Exam Extremities exam: Present: warm, radial pulses palpable and symmetrical. Absent : calf tenderness, cyanotic, pedal edema - Neurological Exam Neurological exam: Present: CN II-XII intact, oriented X3, no focal deficits. Absent: pronater drift, facial droop, speech deficit - Skin Skin exam: Present: dry, intact Internal Medicine: Result - Labs CBC & Chem 7: 10/30/17 05:42 10/30/17 05:42 Labs: Short CBC 10/30/17 Range/Units 05:42 WBC 6.5 (4.3-11.1) K/mcL Hgb 9.8 L (12.9-16.9) g/dL Hct 29.5 L (37.5-50.1) % Plt Count 115 L (140-400) K/mcL BMP 10/30/17 05:42 Sodium 137 Potassium 4.1 Chloride 104 Carbon Dioxide 25 BUN 37 H Creatinine 3.62 H Glucose 180 H Calcium 8.2 L - ABG Interpretation ABG results: PT/INR, D-dimer PT 12.2 Seconds (9.4-12.1) H 10/25/17 20:14 Consult Discharge Plan - Plan Referrals: NONE,PCP [Primary Care Provider] -
[2017-10-30] MEDS: Insulin DETEMIR 100 UNIT/ML X5UNITS SQ SCH (22:24)
[2017-10-31] MEDS: Ipratropium/Albuterol Neb 3 ML IH SCH ×4 (04:05→22:31)
[2017-10-31 04:23] LABS: Hematocrit 30.8 % (37.5-50.1); Hemoglobin 9.8 g/dL (12.9-16.9); Mean Corpuscular HGB Conc 31.8 g/dL (31.6-35.5); Mean Corpuscular Hemoglobin 28.5 pg (28.0-33.3); Mean Corpuscular Volume 89.5 fL (83.0-100.0); Mean Platelet Volume 9.4 fL (9.4-12.4); Platelet Count 131 K/mcL (140-400); Red Blood Count 3.44 M/mcL (4.19-5.50); Red Cell Distribution Width 13.4 % (11.5-14.5)
[2017-10-31 04:31] LABS: INR 1.1; Prothrombin Time 11.8 Seconds (9.4-12.1)
[2017-10-31 04:38] LABS: Calcium 8.2 mg/dL (8.6-10.3); Potassium 3.9 mEq/L (3.5-5.1)
[2017-10-31] MEDS ORDERED: *HR* Heparin 10,000 UNIT/10 ML VIAL ONE (07:42)
[2017-10-31] MEDS ORDERED: 0.9 % Sodium Chloride 2,000 ML ONE (07:42)
[2017-10-31] MEDS ORDERED: *HR* Heparin 10,000 UNIT/10 ML VIAL IV PRN (08:24)
[2017-10-31] MEDS ORDERED: 0.9 % Sodium Chloride 250 ML IVC PRN (08:24)
--- NOTE | 2017-10-31 11:05 | Nephrology Progress Note ---
Date of Encounter: 10/31/17 Time of Encounter: 11:02 - Assessment and Plan (1) ESRD on dialysis Current Visit: Yes Status: Acute HD MWF. Renal vitamins. Renal dose medications. Renal diet. Additional dialysis and ultrafiltration as needed. Consult placed for PD catheter placement. Plan for placement on Tuesday. (2) Constipation Current Visit: Yes Status: Acute fiber therapy. Qualifiers: Qualified Code(s): K59.00 - Constipation, unspecified Subjective Principal diagnosis: ESRD on dialysis, dyspnea Interval history: Patient was seen He has no new complaint. He has dyspnea with exertion that may be getting better. Objective - Vital Signs Vital signs: Vital Signs Temp Pulse Resp BP Pulse Ox 10/31/17 10:52 98.4 F 71 17 138/60 96 10/31/17 07:00 98.5 F 67 16 127/63 96 10/31/17 04:07 16 95 10/31/17 03:05 97.7 F 72 18 150/63 97 10/30/17 23:02 97.7 F 75 16 129/54 95 10/30/17 22:14 16 96 10/30/17 19:02 98.5 F 74 16 157/74 96 10/30/17 16:36 98.5 F 75 18 130/70 98 10/30/17 15:46 18 98 10/30/17 11:35 98.0 F 71 18 143/77 96 Intake and Output 10/30/17 10/31/17 10/31/17 23:59 07:59 15:59 Intake Total 480 / 480 Output Total 850 / 850 200 / 200 Balance -370 / -370 -200 / -200 Intake: Oral 480 / 480 Output: Urine 850 / 850 200 / 200 Other: Meal Dinner Percent of Meal Consumed 100% Weight 121.9 kg Blood Glucose* 196 181 Patient Weight 10/31/17 23:59 Weight 121.9 kg - General Appearance General appearance: Present: well-developed, well-nourished EENT: Present: ATNC Cardiology: Present: regular rate - Lab 10/31/17 03:34 10/31/17 03:34 Most recent lab results Calcium 8.2 mg/dL (8.6-10.3) L 10/31/17 03:34 Phosphorus 4.3 mg/dL (2.7-4.5) 10/25/17 21:13 Magnesium 1.9 mg/dL (1.6-2.6) 10/26/17 02:03 Consult Discharge Plan - Plan Referrals: Patria Joseph DO [Partnered Physician] - 11/30/17 11:15 am
[2017-10-31] MEDS: Metoprolol XL (24 HR) Succ 50 MG TAB.ER.24H PO SCH (11:06)
[2017-10-31] MEDS: Insulin LISPRO 300 UNITS/3 ML VIAL SQ SCH ×4 (11:10→20:40)
--- NOTE | 2017-10-31 13:11 | General Surgery Consult Note ---
Date of Encounter: 10/31/17 Time of Encounter: 12:35 History of Present Illness Consult date: 10/31/17 Reason for consult: other (peritoneal dialysis catheter) Requesting physician: Fidencio Linares History of present illness: Consulted to see patient for placement peritoneal dialysis catheter. Patient admitted to [facility], 10/25/17 after presenting to the emergency department with nausea, vomiting, and increased shortness of breath. The patient has a known history of chronic kidney disease, stage IV, he is to assume is due to increased fluid overload for which hemodialysis was necessary. The patient has medically stabilized and is now considering transitioning to peritoneal dialysis. Past medical history: CAD with history prior VT; status post CABG proximally 2 years ago; ischemic cardiomyopathy; diabetes mellitus; chronic kidney disease stage IV; CHF; COPD; hyperlipidemia; hypertension Surgical history: CABG; cholecystectomy Allergies: Nifedipine; ragweed pollen Medications: Atorvastatin 40 mg by mouth daily at bedtime Clopidogrel 75 mg by mouth daily - this medication has been held for the last 5 days Furosemide 40 mg by mouth daily Lantus insulin 25 units daily at bedtime Ventolin HFA 2 puffs every 4 hours as needed for shortness of breath Calcitriol 0.5 g by mouth daily NovoLog 10-15 units subcutaneous 3 times a day with meals Metoprolol 100 mg by mouth daily Sodium bicarbonate 1300 mg by mouth daily Social history: Patient multi approximately 3 years ago; he admits to 2 packs a day for over 50 years; he admits to a rare alcoholic beverage. He does not consume any illicit drugs Physical examination: Truncally obese, age-appropriate male, sitting comfortably at bedside. The patient is 1.78 m tall, 121.9 kg, BMI 38.5 Current vital signs show the patient to be afebrile, 98.4; pulse 71, respirations 17, blood pressure 130/60. SPO2 on room air 96% Lungs: Clear Cardiac: Regular rate, no appreciable murmurs Abdomen: Truncally obese, nontender with no obvious intra-abdominal masses. Surgical scarring consistent with laparoscopic cholecystectomy. Active bowel sounds Extremities: Trace dependent edema bilateral lower extremities Impression: 72-year-old male, admitted to [facility] after presenting to the emergency department with increasing dyspnea due to fluid overload related to his chronic kidney disease, stage IV. The patient has undergone hemodialysis removal of the excess fluid and control of his CHF. The patient has discussed his medical situation with his nephrologists and wants to consider peritoneal dialysis. I have discussed placement of the peritoneal catheter. Risks include hemorrhage, infection, peritonitis, injury to adjacent structures, malposition or dislocation of the peritoneal catheter with subsequent malfunction of the peritoneal catheter. The patient is scheduled to have a permacath placed via the right subclavian vein by [place] interventional radiology. This is scheduled for either later today or tomorrow morning. I will schedule placement of the peritoneal dialysis catheter on 11/02/17. The patient is aware and expressed understanding of the risks of [place] dialysis placement as well as the planned placement on 11/02/17. Past Med Surg Social Fam HX - Past Medical History Medical history: arthritis, cardiomyopathy, CHF, COPD, coronary artery disease, diabetes, hyperlipidemia, hypertension, renal disease, other Psychiatric history: no psych history - Past Surgical History Surgical History: cholecystectomy, coronary bypass (CABG) - Social History Smoking Status: Former smoker Smokeless Tobacco Status: No Alcohol use: none Drug use: none - Family History Mother Hx Family Cardiac Disorders: Yes (Heart attack) Hx Family Endocrine Disorder: Yes (DM) Father Hx Family Cardiac Disorders: Yes (Heart attack) Hx Family Cancer: Yes (lung cancer) Medications and Allergies Atorvastatin [Lipitor] 40 mg PO HS 01/08/17 [History] Clopidogrel [Plavix] 75 mg PO DAILY 01/08/17 [History] Furosemide [Lasix] 40 mg PO DAILY 01/08/17 [History] Insulin Glargine [Lantus] 25 unit SQ HS 01/08/17 [History] Albuterol Sulfate [Ventolin Hfa] 2 puff IH Q4H PRN 10/25/17 [History] Calcitriol 0.5 mcg PO DAILY 10/25/17 [History] Insulin ASPART [Novolog Flexpen] 10 - 15 unit SQ TIDWM 10/25/17 [History] Metoprolol Succinate [Toprol Xl] 100 mg PO DAILY 10/25/17 [History] Sodium Bicarbonate 1,300 mg PO DAILY 10/25/17 [History] 3 Allergy/AdvReac Type Severity Reaction Status Date / Time ragweed pollen Allergy Cough Verified 10/25/17 19:44 nifedipine AdvReac Dizzy & Verified 10/25/17 20:33 Irritable Review of Systems All systems PM: The remainder of the systems were reviewed and are negative General Surgery Exam Initial Vital Signs Temp Pulse Resp BP Pulse Ox 97.6 F 72 16 172/85 93 10/25/17 19:44 10/25/17 19:44 10/25/17 19:44 10/25/17 19:44 10/25/17 19:44 Exam Initial Vital Signs Temp Pulse Resp BP Pulse Ox 97.6 F 72 16 172/85 93 10/25/17 19:44 10/25/17 19:44 10/25/17 19:44 10/25/17 19:44 10/25/17 19:44 Results - Labs 10/31/17 03:34 10/31/17 03:34 Abnormal lab results RBC 3.44 M/mcL (4.19-5.50) L 10/31/17 03:34 Hgb 9.8 g/dL (12.9-16.9) L 10/31/17 03:34 Hct 30.8 % (37.5-50.1) L 10/31/17 03:34 Plt Count 131 K/mcL (140-400) L 10/31/17 03:34 BUN 54 mg/dL (8-23) H 10/31/17 03:34 Creatinine 4.34 mg/dL (0.70-1.30) H 10/31/17 03:34 Est GFR ( Amer) 16 (> 60) L 10/31/17 03:34 Est GFR (Non-Af Amer) 14 (> 60) L 10/31/17 03:34 Glucose 218 mg/dL (70-105) H 10/31/17 03:34 POC Glucose 196 mg/dL (70-99) H 10/31/17 12:16 Calculated Osmolality 307 (280-300) H 10/31/17 03:34 Calcium 8.2 mg/dL (8.6-10.3) L 10/31/17 03:34 AST 9 Units/L (13-39) L 10/25/17 21:13 Troponin I 0.07 ng/mL (< 0.04) H* 10/26/17 07:42 B-Natriuretic Peptide 1779 pg/mL (Less than 100) H 10/25/17 20:14 25-OH Vitamin D Total 10 ng/mL (30-80) L 10/27/17 04:59 PTH Intact 317.5 pg/ml (10.0-65.0) H 10/27/17 04:59 Urine Protein >=1000 mg/dL (Neg-Trace) H 10/25/17 20:00 Urine Glucose (UA) 500 mg/dL (Normal) H 10/25/17 20:00 Urine Blood Small (Negative) H 10/25/17 20:00 Urine Microscopic RBC 5-15 per hpf (0-3) H 10/25/17 20:00 Urine Microscopic WBC 3-5 per hpf (0-3) H 10/25/17 20:00 Ur Squamous Epith Cells Many per lpf (None-Few) H 10/25/17 20:00 Diabetes panel 10/31/17 Range/Units 03:34 Sodium 138 (136-145) mEq/L Potassium 3.9 (3.5-5.1) mEq/L Chloride 104 (98-107) mEq/L Carbon Dioxide 23 (23-29) mEq/L BUN 54 H (8-23) mg/dL Creatinine 4.34 H (0.70-1.30) mg/dL Glucose 218 H (70-105) mg/dL Calcium 8.2 L (8.6-10.3) mg/dL Calcium panel 10/31/17 Range/Units 03:34 Calcium 8.2 L (8.6-10.3) mg/dL Pituitary panel 10/31/17 Range/Units 03:34 Sodium 138 (136-145) mEq/L Potassium 3.9 (3.5-5.1) mEq/L Chloride 104 (98-107) mEq/L Carbon Dioxide 23 (23-29) mEq/L BUN 54 H (8-23) mg/dL Creatinine 4.34 H (0.70-1.30) mg/dL Glucose 218 H (70-105) mg/dL Calcium 8.2 L (8.6-10.3) mg/dL Adrenal panel 10/31/17 Range/Units 03:34 Sodium 138 (136-145) mEq/L Potassium 3.9 (3.5-5.1) mEq/L Chloride 104 (98-107) mEq/L Carbon Dioxide 23 (23-29) mEq/L BUN 54 H (8-23) mg/dL Creatinine 4.34 H (0.70-1.30) mg/dL Glucose 218 H (70-105) mg/dL Calcium 8.2 L (8.6-10.3) mg/dL All other labs normal. Consult Discharge Plan - Plan Referrals: Patria Joseph DO [Partnered Physician] - 11/30/17 11:15 am
--- NOTE | 2017-10-31 16:40 | Internal Med Progress Note ---
Date of Encounter: 10/31/17 Time of Encounter: 16:36 - Assessment and plan (1) ESRD on dialysis Current Visit: Yes Status: Acute Assessment and plan: per hx. Follows with [facility]. Oliguric. Renal function appears to be worsening since 2014. Temporary IJ hemodialysis catheter placement with initiation of dialysis on 10/27/17. Plan for tunneled hemodialysis line on 11/01/17. Plan for peritoneal dialysis catheter placement on Tuesday11/02/[address] Aquino. Cont to hold Plavix. NPO at midnight. Nephrology following (2) Atrial flutter Current Visit: Yes Status: Acute Assessment and plan: A.flutter noted per ECG on 10/26/17; new onset. Rate controlled. Asymptomatic. Evaluated by Cardiology who noted [id number] score 5 (age, DM, CHF, HTN, CAD) and commended anticoagulation however unable to start due to temp HD catheter placement today and plan for permacath possibly Tuesday and anemia. Can consider coumadin due to CKD in outpatient setting per Cardiology recommendations. Qualifiers: Atrial flutter type: unspecified Qualified Code(s): I48.92 - Unspecified atrial flutter (3) Anemia Current Visit: Yes Status: Chronic Assessment and plan: Hgb 11.2 on admission which appears baseline. Dropped to 9.9 on 10/26. No obvious/overt bleeding. Hemodynamically stable. Monitor repeat CBC, occult stool pending. Hgb 9.8 on 10/30; suspect anemia of chronic disease combined with iatrogenic anemia from daily blood draws. Qualifiers: Anemia type: unspecified type Qualified Code(s): D64.9 - Anemia, unspecified (4) Diabetes mellitus type 2, insulin dependent Current Visit: No Status: Chronic Assessment and plan: Continue basal insulin. Continue insulin sliding scale. Continue Accu-Cheks. (5) Elevated troponin Current Visit: No Status: Chronic Assessment and plan: Patient's troponins are chronically elevated. Asymptomatic. Denies chest pain. EKG with no acute ST or T-wave changes. Suspect secondary to worsening renal function. Cardiology following. Repeat echo pending (6) Ischemic cardiomyopathy Current Visit: No Status: Chronic Assessment and plan: per hx. LVEF 29% per MUGA scan 02/2016. Appears volume overloaded with crackles , lower extremity edema. BNP elevated. Holding home Lasix, diuresed with IV Lasix. Repeat TTE 10/29/17 with EF 20-25%, severe systolic dysfunction, indeterminate diastolic dysfunction, no LV thrombus; essentially unchanged. Of note, previously recommended to have ICD however patient has historically refused. Cardiology discussed risk of sudden cardiac with patient and and patient refuses to consider ICD. Strict I's and O's, daily weight, renal diet. Sx's significantly improved with IV Lasix and hemodialysis. Stop IV lasix, resume home lasix (7) Thrombocytopenia Current Visit: No Status: Acute Assessment and plan: per chart review, appears to be chronic. Stable, no active bleeding. PLTs 131 on 10/31 review (8) Dyspnea Current Visit: Yes Status: Acute Assessment and plan: Patient has noticed dyspnea on exertion. He reports orthopnea. Suspect secondary to volume overload from his kidney disease and cardiomyopathy. Dyspnea improving with IV diuresis and HD. Qualifiers: Dyspnea type: dyspnea on exertion Qualified Code(s): R06.09 - Other forms of dyspnea (9) Hypertension Current Visit: Yes Status: Acute Assessment and plan: per hx. BP elevated at times during HD sessions otherwise controlled. Continue home BB. Monitor blood pressure and titrate PRN Qualifiers: Hypertension type: essential hypertension Qualified Code(s): I10 - Essential (primary) hypertension (10) DVT prophylaxis Current Visit: Yes Status: Acute Assessment and plan: SCDs given thrombocytopenia. - Time Spent With Patient Total time spent is greater than 50% in coordination of care (as documented) at patient's floor/unit and/or counseling patient: - Subjective Interval history: Seen and examined at bedside; sitting up in chair at bedside. Still has chronic lower back pain says it is a little better with the Lidoderm patch. Otherwise he has no complaints. Discussed case with Dr. Linares with nephrology and will stop IV Lasix and resume home Lasix. His cussed case with interventional radiology and there is a chance patient may not be able to have PermCath placed today and will allow him to eat and make him nothing by mouth at midnight for PermCath morning. Discussed case with Dr. aquino and peritoneal dialysis catheter plan for Tuesday. - Constitutional Vitals: Temp Pulse Resp BP Pulse Ox 97.1 F L 71 17 170/77 96 10/31/17 15:40 10/31/17 10:52 10/31/17 15:40 10/31/17 16:20 10/31/17 10:52 General appearance: Present: A&O X 3, morbidly obese, no acute distress - Head Head exam: Present: atraumatic, normocephalic - Eye Eye exam: Present: PERRL, conjuntiva pink, sclera anicteric Pupils: Present: PERRL - Neck Neck exam general surgery: Present: supple, trachea midline. Absent: lymphadenopathy - Respiratory Respiratory exam: Present: CTAB. Absent: accessory muscle use, rales, rhonchi, wheezes - Cardiovascular Cardiovascular exam: Present: RRR, +S1, +S2. Absent: diastolic murmur, gallop, rubs, systolic murmur - GI/Abdominal GI/Abdominal exam: Present: normal bowel sounds, soft, no peritoneal signs. Absent: distended, tenderness - Extremities Exam Extremities exam: Present: warm, radial pulses palpable and symmetrical. Absent : calf tenderness, cyanotic, pedal edema - Neurological Exam Neurological exam: Present: CN II-XII intact, oriented X3, no focal deficits. Absent: pronater drift, facial droop, speech deficit - Skin Skin exam: Present: dry, intact Internal Medicine: Result - Labs CBC & Chem 7: 10/31/17 03:34 10/31/17 03:34 Labs: Short CBC 10/31/17 Range/Units 03:34 WBC 6.3 (4.3-11.1) K/mcL Hgb 9.8 L (12.9-16.9) g/dL Hct 30.8 L (37.5-50.1) % Plt Count 131 L (140-400) K/mcL BMP 10/31/17 03:34 Sodium 138 Potassium 3.9 Chloride 104 Carbon Dioxide 23 BUN 54 H Creatinine 4.34 H Glucose 218 H Calcium 8.2 L - ABG Interpretation ABG results: PT/INR, D-dimer PT 11.8 Seconds (9.4-12.1) 10/31/17 03:34 Consult Discharge Plan - Plan Referrals: Patria Joseph DO [Partnered Physician] - 11/30/17 11:15 am
[2017-10-31] MEDS: Insulin DETEMIR 100 UNIT/ML X5UNITS SQ SCH (20:38)
[2017-11-01] MEDS: Ipratropium/Albuterol Neb 3 ML IH SCH ×4 (03:19→20:59)
[2017-11-01 06:02] LABS: Hematocrit 32.2 % (37.5-50.1); Hemoglobin 10.3 g/dL (12.9-16.9); Mean Corpuscular Hemoglobin 28.9 pg (28.0-33.3); Mean Corpuscular Volume 90.2 fL (83.0-100.0); Mean Platelet Volume 9.4 fL (9.4-12.4); Platelet Count 141 K/mcL (140-400); Red Blood Count 3.57 M/mcL (4.19-5.50); Red Cell Distribution Width 13.4 % (11.5-14.5)
[2017-11-01 06:26] LABS: Calcium 8.3 mg/dL (8.6-10.3)
[2017-11-01] MEDS ORDERED: Heparin 1,000 UNITS/500 mL 500 ML ONE (08:14)
[2017-11-01] MEDS ORDERED: *HR* Midazolam HCl 2 MG/2 ML VIAL IVP ONE (08:17)
[2017-11-01] MEDS ORDERED: Clindamycin 600 MG/50 ML 600 MG/50 ML IV.SOLN IVPB ONE (08:17)
[2017-11-01] MEDS ORDERED: *HR* FentaNYL (PF) 100 MCG/2 ML VIAL IVP ONE (08:17)
[2017-11-01] MEDS ORDERED: 0.9 % Sodium Chloride 500 ML ONE (08:27)
[2017-11-01] MEDS ORDERED: *HR* Heparin 5,000 UNIT/ML VIAL ONE (08:27)
[2017-11-01] MEDS ORDERED: *HR* Midazolam HCl 2 MG/2 ML VIAL ONE (08:32)
[2017-11-01] MEDS ORDERED: *HR* FentaNYL (PF) 100 MCG/2 ML VIAL ONE (08:33)
[2017-11-01] MEDS: Insulin LISPRO 300 UNITS/3 ML VIAL SQ SCH ×4 (08:33→20:13)
[2017-11-01] MEDS: Metoprolol XL (24 HR) Succ 50 MG TAB.ER.24H PO SCH (09:28)
[2017-11-01] MEDS: Furosemide 40 MG TABLET PO SCH (09:28)
[2017-11-01] MEDS ORDERED: Sennosides/Docusate Sodium TABLET PO PRN (09:33)
--- NOTE | 2017-11-01 10:30 | Nephrology Progress Note ---
Date of Encounter: 11/01/17 Time of Encounter: 10:26 - Assessment and Plan (1) ESRD on dialysis Current Visit: Yes Status: Acute Plan for HD tomorrow UOP 950 ml Continue strict I/Os To have PD cath placed tomorrow Patient going to [place] for HD Needs to have arrangements for f/u with PD nurse for PD cath care (2) Diabetes mellitus type 2, insulin dependent Current Visit: No Status: Chronic per primary team (3) Hypertension Current Visit: Yes Status: Acute per primary team Qualifiers: Hypertension type: essential hypertension Qualified Code(s): I10 - Essential (primary) hypertension Subjective Principal diagnosis: ESRD on dialysis, dyspnea Interval history: Patient seen and examined. States he is feeling well; sitting up in chair Objective - Vital Signs Vital signs: Vital Signs Temp Pulse Resp BP Pulse Ox 11/01/17 07:41 98.1 F 68 16 159/65 97 11/01/17 03:26 98.1 F 68 16 129/65 94 10/31/17 23:25 97.7 F 72 16 128/70 97 10/31/17 22:31 18 98 10/31/17 18:49 98.9 F 69 16 122/58 97 10/31/17 16:53 97.9 F 71 17 139/68 97 10/31/17 15:40 97.1 F L 17 160/91 10/31/17 15:30 148/80 10/31/17 15:15 163/75 10/31/17 15:00 157/68 10/31/17 14:45 169/73 10/31/17 14:30 171/79 10/31/17 14:15 170/80 10/31/17 14:00 176/72 10/31/17 13:45 170/77 10/31/17 13:30 157/62 10/31/17 13:15 98.4 F 17 163/82 10/31/17 10:52 98.4 F 71 17 138/60 96 Intake and Output 10/31/17 11/01/17 11/01/17 23:59 07:59 15:59 Intake Total 240 / 240 Output Total 550 / 550 350 / 350 Balance -310 / -310 -350 / -350 Intake: Oral 240 / 240 Output: Urine 550 / 550 350 / 350 Other: Meal Dinner Percent of Meal Consumed 100% Weight 120.4 kg Blood Glucose* 247 164 Patient Weight 11/01/17 23:59 Weight 120.4 kg - General Appearance General appearance: Present: obese EENT: Present: ATNC, mucous membranes moist, hearing intact, vision intact Neck: Present: supple Respiratory: Present: clear Cardiology: Present: no edema, normal S1, normal S2 Dialysis Vascular Access: Venous Catheter Gastrointestinal: Present: no tenderness, no guarding Integumentary: Present: warm and dry Neurologic: Present: alert and oriented x3 Psychiatric: Present: mood/affect appropriate, cooperative - Lab 11/01/17 04:29 11/01/17 04:29 Most recent lab results Calcium 8.3 mg/dL (8.6-10.3) L 11/01/17 04:29 Phosphorus 4.3 mg/dL (2.7-4.5) 10/25/17 21:13 Magnesium 1.9 mg/dL (1.6-2.6) 10/26/17 02:03 Consult Discharge Plan - Plan Referrals: Patria Joseph DO [Partnered Physician] - 11/30/17 11:15 am
[2017-11-01] MEDS: Acetaminophen 325 MG TABLET PO PRN ×2 (11:58→22:42)
--- NOTE | 2017-11-01 13:27 | General Surgery Progress Note ---
Date of Encounter: 11/01/17 Time of Encounter: 13:10 Subjective Patient reports: no new complaints Narrative: General Surgery - Tunneled hemodialysis catheter placed earlier this morning. Patient indicates he tolerated the procedure well. he has no postprocedural complaints. The patient remains afebrile, 98.1, pulse 68, respirations 16, blood pressure 159/65 Lungs: Clear bilaterally Cardiac: Regular rate, no appreciable murmurs Abdomen: Obese, soft, nontender. No obvious peritoneal signs or rebound. Active bowel sounds. White count 6.3, hemoglobin 10.3 with hematocrit 32.2. Platelet count 141,000 ( resolved thrombocytopenia) Electrolytes are stable and within normal limits; BUN 39, creatinine 3.43 Impression: For placement of peritoneal dialysis catheter in a.m. The procedure was discussed in detail with the patient and patient's . Risks include hemorrhage, infection, peritonitis, injury to adjacent organs/ bowel; possible dislocation of catheter following placement, malfunction. I attempted to answer all questions. The patient expressed understanding and is willing to proceed. Consent has been obtained. Objective Vital Signs - Last 8 Hours Temp Pulse Resp BP Pulse Ox 11/01/17 07:41 98.1 F 68 16 159/65 97 Intake and Output 10/31/17 11/01/17 11/01/17 23:59 07:59 15:59 Intake Total 240 / 240 Output Total 550 / 550 350 / 350 Balance -310 / -310 -350 / -350 Intake: Oral 240 / 240 Output: Urine 550 / 550 350 / 350 Other: Meal Dinner Percent of Meal Consumed 100% Weight 120.4 kg Blood Glucose* 247 164 273 Patient Weight 11/01/17 23:59 Weight 120.4 kg - Labs 11/01/17 04:29 11/01/17 04:29 Diabetes panel 11/01/17 Range/Units 04:29 Sodium 140 (136-145) mEq/L Potassium 4.0 (3.5-5.1) mEq/L Chloride 107 (98-107) mEq/L Carbon Dioxide 23 (23-29) mEq/L BUN 39 H (8-23) mg/dL Creatinine 3.43 H (0.70-1.30) mg/dL Glucose 159 H (70-105) mg/dL Calcium 8.3 L (8.6-10.3) mg/dL Calcium panel 11/01/17 Range/Units 04:29 Calcium 8.3 L (8.6-10.3) mg/dL Pituitary panel 11/01/17 Range/Units 04:29 Sodium 140 (136-145) mEq/L Potassium 4.0 (3.5-5.1) mEq/L Chloride 107 (98-107) mEq/L Carbon Dioxide 23 (23-29) mEq/L BUN 39 H (8-23) mg/dL Creatinine 3.43 H (0.70-1.30) mg/dL Glucose 159 H (70-105) mg/dL Calcium 8.3 L (8.6-10.3) mg/dL Adrenal panel 11/01/17 Range/Units 04:29 Sodium 140 (136-145) mEq/L Potassium 4.0 (3.5-5.1) mEq/L Chloride 107 (98-107) mEq/L Carbon Dioxide 23 (23-29) mEq/L BUN 39 H (8-23) mg/dL Creatinine 3.43 H (0.70-1.30) mg/dL Glucose 159 H (70-105) mg/dL Calcium 8.3 L (8.6-10.3) mg/dL Consult Discharge Plan - Plan Referrals: Patria Joseph DO [Partnered Physician] - 11/30/17 11:15 am
--- NOTE | 2017-11-01 16:14 | Internal Med Progress Note ---
Date of Encounter: 11/01/17 Time of Encounter: 10:30 - Assessment and plan (1) Diabetes mellitus type 2, insulin dependent Current Visit: Yes Status: Chronic Assessment and plan: Continue sliding scale insulin, Accu-Cheks before meals and at bedtime, diabetic diet, basal insulin. (2) Elevated troponin Current Visit: No Status: Chronic Assessment and plan: Patient's troponins are chronically elevated, chronically secondary to chronic kidney disease, CHF Pt denies chest pain. EKG with no acute ST changes. Suspect secondary to worsening renal function. Cardiology following. Echo with EF of 20-25%, severe global LV systolic function, indeterminant diastolic function, moderately dilated LV, mild MR, mild TR, mild pulmonary hypertension. The IVC is dilated. Patient has historically refused ICD in the past, he is aware of the risks of mortality with ICM and low EF. (3) Ischemic cardiomyopathy Current Visit: No Status: Chronic Assessment and plan: EF 20-25%. Patient with mild lower extremity edema, lungs are clear and diminished. BNP elevated. Patient receiving IV Lasix, home dose of by mouth was held. Repeat TTE 10/29/17 with EF 20-25%, severe systolic dysfunction, indeterminate diastolic dysfunction, significant valvular dysfunction. Per patient history, cardiology has recommended ICD in the past, however, patient has refused. Cardiology discussed risk of sudden cardiac with patient and and patient refuse to consider ICD. Strict I's and O's, daily weight, renal diet. Patient improved with hemodialysis and IV Lasix. (4) Thrombocytopenia Current Visit: No Status: Resolved Assessment and plan: Stable, improved, no active bleeding. PLTs 141 on 11/01 review. (5) Anemia Current Visit: Yes Status: Chronic Assessment and plan: Hgb 10.3 today, trending up. No obvious/overt bleeding. Hemodynamically stable. Anemia of chronic disease, CKD. Patient does not appear to have any iron, fully, B12 studies done. We will continue to monitor. Qualifiers: Anemia type: unspecified type Qualified Code(s): D64.9 - Anemia, unspecified (6) Dyspnea Current Visit: Yes Status: Acute Assessment and plan: Patient reports YAO and orthopnea. Likely secondary to volume overload from his kidney disease and cardiomyopathy. Dyspnea improving with IV diuresis and HD. Continues to improve today, 11/01. Qualifiers: Dyspnea type: dyspnea on exertion Qualified Code(s): R06.09 - Other forms of dyspnea (7) DVT prophylaxis Current Visit: Yes Status: Acute Assessment and plan: SCDs. No pharmacologic DVT prophylaxis due to thrombocytopenia. (8) Atrial flutter Current Visit: Yes Status: Acute Assessment and plan: New onset 4/4. Rate control. Patient denies shortness of breath, dizziness, chest pain or pressure. Patient been evaluated by cardiology, they have recommended anticoagulation, unable to start due to PD catheter placement tomorrow, as well as anemia. Can consider Coumadin outpatient per cardiology recommendations. Echo as above. Qualifiers: Atrial flutter type: unspecified Qualified Code(s): I48.92 - Unspecified atrial flutter (9) ESRD on dialysis Current Visit: Yes Status: Acute Assessment and plan: Serum creatinine 3.3, GFR 18. This appears to be a mild improvement over baseline. Renal function has been declining since Nov, 2014. Patient had HD catheter placed yesterday, will have PD catheter placed tomorrow by Dr. aquino. Patient has hemodialysis on Tuesday, he has been evaluated by nephrology, recommend renal vitamins, renally dosed medications, renal diet, additional dialysis and ultrafiltration as needed. (10) Hypertension Current Visit: Yes Status: Acute Assessment and plan: Well-controlled. Continue home BB. Monitor blood pressure and titrate PRN Qualifiers: Hypertension type: essential hypertension Qualified Code(s): I10 - Essential (primary) hypertension - Time Spent With Patient Total time spent is greater than 50% in coordination of care (as documented) at patient's floor/unit and/or counseling patient: less than 15 minutes - Subjective Interval history: Patient was seen and assessed the bedside at 10:30 AM. He states he is feeling well. He is aware of PD catheter insertion tomorrow. He denies headache, blurred vision, nausea, vomiting, diarrhea, diaphoresis. He denies any abdominal pain or chest pain. He denies shortness of breath. There is no peripheral edema. - Constitutional Vitals: Temp Pulse Resp BP Pulse Ox 97.8 F 70 16 145/70 94 11/01/17 14:50 11/01/17 14:50 11/01/17 14:50 11/01/17 14:50 11/01/17 14:50 General appearance: Present: cooperative, A&O X 3, morbidly obese, pleasant, no acute distress, answers questions appropriately - Head Head exam: Present: atraumatic, normal inspection, normocephalic - Eye Eye exam: Present: normal appearance, conjuntiva pink, sclera anicteric - Neck Neck exam general surgery: Present: normal inspection, supple, trachea midline. Absent: lymphadenopathy, tenderness - Respiratory Respiratory exam: Present: chest wall tenderness, CTAB. Absent: accessory muscle use, rales, respiratory distress, rhonchi, wheezes - Cardiovascular Cardiovascular exam: Present: RRR, +S1, +S2. Absent: diastolic murmur, gallop, rubs, systolic murmur - GI/Abdominal GI/Abdominal exam: Present: normal bowel sounds, soft. Absent: distended, hepatomegaly, tenderness - Extremities Exam Extremities exam: Present: normal capillary refill, normal inspection, warm, radial pulses palpable and symmetrical. Absent: calf tenderness, cyanotic, pedal edema, tenderness - Neurological Exam Neurological exam: Present: alert, oriented X3, no focal deficits. Absent: facial droop, speech deficit - Skin Skin exam: Present: dry, intact, normal color, warm. Absent: rash Internal Medicine: Result - Labs CBC & Chem 7: 11/01/17 04:29 11/01/17 04:29 Labs: Short CBC 11/01/17 Range/Units 04:29 WBC 6.3 (4.3-11.1) K/mcL Hgb 10.3 L (12.9-16.9) g/dL Hct 32.2 L (37.5-50.1) % Plt Count 141 (140-400) K/mcL BMP 11/01/17 04:29 Sodium 140 Potassium 4.0 Chloride 107 Carbon Dioxide 23 BUN 39 H Creatinine 3.43 H Glucose 159 H Calcium 8.3 L - ABG Interpretation ABG results: PT/INR, D-dimer PT 11.8 Seconds (9.4-12.1) 10/31/17 03:34 - Impressions Impressions Guidance Needle Placement Ultrasound 11/01/17 00:00 IMPRESSION: Successful ultrasound and fluoroscopy guided tunneled catheter placement . D/ / Elie Jones MD / Elie Jones MD Interpreting Provider: Elie Jones MD Consult Discharge Plan - Plan Referrals: Patria Joseph DO [Partnered Physician] - 11/30/17 11:15 am
--- NOTE | 2017-11-01 18:14 | Anesthesia Evaluation PreOp ---
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 HX Other Medical History: Renal (CKD Stage 5, was dialyzed 10-31-2016), Diabetes Type II, Other (Obese) Anesthesia History: No Prior Anesthetic Complications Alcohol Use: none Drug use: none Medications and Allergies Atorvastatin [Lipitor] 40 mg PO HS 01/08/17 [History] Clopidogrel [Plavix] 75 mg PO DAILY 01/08/17 [History] Furosemide [Lasix] 40 mg PO DAILY 01/08/17 [History] Insulin Glargine [Lantus] 25 unit SQ HS 01/08/17 [History] Albuterol Sulfate [Ventolin Hfa] 2 puff IH Q4H PRN 10/25/17 [History] Calcitriol 0.5 mcg PO DAILY 10/25/17 [History] Insulin ASPART [Novolog Flexpen] 10 - 15 unit SQ TIDWM 10/25/17 [History] Metoprolol Succinate [Toprol Xl] 100 mg PO DAILY 10/25/17 [History] Sodium Bicarbonate 1,300 mg PO DAILY 10/25/17 [History] 3 Allergy/AdvReac Type Severity Reaction Status Date / Time ragweed pollen Allergy Cough Verified 10/25/17 19:44 nifedipine AdvReac Dizzy & Verified 10/25/17 20:33 Irritable - Meds/Allergy Pre-op Review Medications Reviewed: Yes Allergies Reviewed: Yes Beta Blockers on Current Med List: Yes Anesthesia Results - Labs 11/01/17 04:29 11/01/17 04:29 Laboratory Tests 11/01/17 11/01/17 04:29 04:29 Hgb 10.3 L Hct 32.2 L Plt Count 141 Sodium 140 Potassium 4.0 BUN 39 H Creatinine 3.43 H - Imaging EKG: report reviewed (Atrial Flutter...on beta kaylee) Additional studies: ECHO shows EF 20-25%, severe global LV dysfunction, mild pulm htn Anesthesia Exam Vital Signs/O2 Sat/Glucose, Most Current Temp Pulse Resp BP Pulse Ox 11/01/17 16:17 16 98 11/01/17 14:50 97.8 F 70 16 145/70 94 Height: 5'10 Weight: 265 lbs NPO (# of Hours): MN Pain Scale: 0 - HEENT Pupil (Motor): Pupils equal, EOMI Mallampati: III Teeth: Missing Oral Opening: Less than or equal to 3 (no upper dentition) - ADAPTIVE PHYSICAL EDUCATION TEACHER LOC: Oriented, Confused ADAPTIVE PHYSICAL EDUCATION TEACHER Motor: Normal RUE, Normal LUE, Normal RLE, Normal LLE, Normal Face ADAPTIVE PHYSICAL EDUCATION TEACHER Sensory: Normal: RUE, LUE, RLE, LLE, Face - Cardiac Rhythm: Irregular Murmur: None JVD: No Carotid Bruit: No - Pulmonary Breath Sounds: bilateral Clear Respiratory Effort: Symmetrical Anesthesia Assess/Plan ASA Score: 4 (CAD Cardiomyopathy Arrhythmia ESRD) Modified [place] Scale for Level of Consciousness: Cooperative, oriented, and tranquil Anesthetic Plan: General Monitoring Plan: Standard Monitors Recovery Plan: PACU (Discussed GA, possible A-line, moderate to high risk for anesthesia, agrees to proceed)
[2017-11-01] MEDS: Insulin DETEMIR 100 UNIT/ML X5UNITS SQ SCH (20:12)
[2017-11-02] MEDS: Ipratropium/Albuterol Neb 3 ML IH SCH ×4 (03:03→22:01)
[2017-11-02 05:50] LABS: Basophils # 0.1 K/mcL (0.0-0.2); Basophils % 0.7 %; Eosinophils # 0.2 K/mcL (0.0-0.6); Eosinophils % 2.9 %; Hematocrit 31.9 % (37.5-50.1); Hemoglobin 10.5 g/dL (12.9-16.9); Immature Granulocytes % 0.4 % (0-4); Lymphocytes # 1.7 K/mcL (0.6-4.6); Mean Corpuscular HGB Conc 32.9 g/dL (31.6-35.5); Mean Corpuscular Hemoglobin 28.9 pg (28.0-33.3); Mean Corpuscular Volume 87.9 fL (83.0-100.0); Mean Platelet Volume 9.7 fL (9.4-12.4); Monocytes # 0.6 K/mcL (0.0-1.3); Monocytes % 8.4 %; Neutrophils # 4.6 K/mcL (1.6-8.9); Platelet Count 140 K/mcL (140-400); Red Blood Count 3.63 M/mcL (4.19-5.50); Red Cell Distribution Width 13.2 % (11.5-14.5); Segmented Neutrophils % 63.6 %
[2017-11-02 06:38] LABS: Folate 11.6 ng/mL (3.0-16.0)
[2017-11-02 07:06] LABS: Calcium 8.3 mg/dL (8.6-10.3); Potassium 4.6 mEq/L (3.5-5.1)
[2017-11-02] MEDS ORDERED: 0.9 % Sodium Chloride 1,000 ML ONE (07:40)
[2017-11-02] MEDS: Insulin LISPRO 300 UNITS/3 ML VIAL SQ SCH ×4 (08:01→21:47)
[2017-11-02] MEDS ORDERED: Heparin 1,000 UNITS/500 mL 500 ML ONE ×2 (08:02→12:16)
[2017-11-02] MEDS ORDERED: *HR* Heparin 10,000 UNIT/10 ML VIAL IV PRN (08:20)
[2017-11-02 08:25] LABS: % Iron Saturation 9 % (20-55); Iron 30 mcg/dL (65-175); Transferrin 234 mg/dL (203-362)
[2017-11-02] MEDS ORDERED: 0.9 % Sodium Chloride 1,000 ML PRIME SCH (08:30)
[2017-11-02] MEDS: Furosemide 40 MG TABLET PO SCH (09:00)
[2017-11-02] MEDS: Metoprolol XL (24 HR) Succ 50 MG TAB.ER.24H PO SCH (09:19)
[2017-11-02] MEDS ORDERED: Bupivacaine/EPI 1:200k 0.25%PF 10 ML VIAL INFILT ONE (12:23)
[2017-11-02] MEDS ORDERED: *HR* Etomidate 40 MG/20 ML VIAL IVP ONE (12:25)
[2017-11-02] MEDS ORDERED: Dexamethasone 4 MG/ML VIAL ONE (12:26)
[2017-11-02] MEDS ORDERED: Ondansetron 4 MG/2 ML VIAL ONE (12:26)
[2017-11-02] MEDS ORDERED: *HR* Succinylcholine 200 MG/10 ML VIAL IVP ONE (12:26)
[2017-11-02] MEDS ORDERED: Neostigmine Methylsulfate 3 MG/3 ML SYRINGE ONE (12:26)
[2017-11-02] MEDS ORDERED: *HR* Propofol 200 MG/20 ML VIAL IVP ONE (12:26)
[2017-11-02] MEDS ORDERED: *HR* Rocuronium Bromide 50 MG/5 ML VIAL ONE (12:26)
[2017-11-02] MEDS ORDERED: Lidocaine -MPF 2% 2 ML VIAL ONE ×2 (12:26→12:52)
[2017-11-02] MEDS ORDERED: *HR* FentaNYL (PF) 100 MCG/2 ML VIAL ONE (12:29)
[2017-11-02] MEDS ORDERED: Lidocaine -MPF 4% 5 ML AMPUL ONE (12:34)
[2017-11-02] MEDS ORDERED: *HR* Phenylephrine 10 MG/ML VIAL ONE (12:35)
[2017-11-02] MEDS ORDERED: *HR* Midazolam HCl 2 MG/2 ML VIAL ONE (12:41)
--- NOTE | 2017-11-02 12:52 | Nephrology Progress Note ---
Date of Encounter: 11/02/17 Time of Encounter: 12:51 - Assessment and Plan (1) ESRD on dialysis Current Visit: Yes Status: Chronic HD MWF. Renal vitamins. Renal dose medications. Renal diet. Additional dialysis and ultrafiltration as needed. Consult placed for PD catheter placement. Plan for placement today. He was seen on dialysis today.. (2) Constipation Current Visit: Yes Status: Acute fiber therapy. Qualifiers: Qualified Code(s): K59.00 - Constipation, unspecified Subjective Principal diagnosis: ESRD on dialysis, dyspnea Interval history: Patient was seen. He is ready to go home. He is slightly anxious about getting his PD catheter placed. He was seen on dialysis and seems to be doing well. Objective - Vital Signs Vital signs: Vital Signs Temp Pulse Resp BP Pulse Ox 11/02/17 12:27 97.5 F L 18 131/62 11/02/17 12:20 131/62 11/02/17 12:05 133/70 11/02/17 11:50 136/75 11/02/17 11:35 134/82 11/02/17 11:20 145/86 11/02/17 11:05 151/84 11/02/17 10:50 182/57 11/02/17 10:35 151/59 11/02/17 10:20 168/86 11/02/17 10:05 139/73 11/02/17 09:50 158/93 11/02/17 09:35 188/85 11/02/17 09:20 97.4 F L 18 168/84 11/02/17 06:36 97.3 F L 80 15 126/62 96 11/02/17 04:16 97.8 F 81 14 148/93 95 11/01/17 23:16 98 F 89 16 183/47 94 11/01/17 20:59 17 98 11/01/17 19:05 97.8 F 69 16 181/82 97 11/01/17 16:17 16 98 11/01/17 14:50 97.8 F 70 16 145/70 94 Intake and Output 11/01/17 11/02/17 11/02/17 23:59 07:59 15:59 Intake Total 600 / 600 Output Total 785 / 785 3600 / 3600 Balance -785 / -785 -3000 / -3000 Intake: Oral 0 / 0 Intake, Rinseback and Flushes 600 / 600 Output: Urine 785 / 785 0 / 0 Total Dialysis (HD) Output 3600 / 3600 Other: Meal NPO Weight 122.4 kg 122.4 kg Blood Glucose* 160 Hemodialysis Net Fluid Removed 3000 (mL) Patient Weight 11/02/17 23:59 Weight 122.4 kg - General Appearance General appearance: Present: well-developed, well-nourished EENT: Present: ATNC Neck: Present: supple Cardiology: Present: regular rate Integumentary: Present: warm and dry Neurologic: Present: alert and oriented x3 - Lab 11/02/17 04:16 11/02/17 04:16 Most recent lab results Calcium 8.3 mg/dL (8.6-10.3) L 11/02/17 04:16 Phosphorus 4.3 mg/dL (2.7-4.5) 10/25/17 21:13 Magnesium 1.9 mg/dL (1.6-2.6) 10/26/17 02:03 Consult Discharge Plan - Plan Referrals: Patria Joseph DO [Partnered Physician] - 11/30/17 11:15 am
[2017-11-02] MEDS ORDERED: ceFAZolin 2,000 MG in Water for inj. (sterile) 20 ML IVP ONE (13:24)
--- NOTE | 2017-11-02 14:25 | Anesthesia Procedures ---
Date of Encounter: 11/02/17 Time of Encounter: 13:00 Procedures: Anesthesia - Arterial Line Consent obtained: written consent Time out performed: Yes Sedation: Versed (mg): 1 Local Anesthetic: Lidocaine 1% Amount of Anesthetic used (mls): 0.3 Size (Gauge): 20 Length (inches): 1 3/4 Technique Used: sterile prep, direct puncture technique Post-Procedure: line taped into place Patient tolerated procedure: well, no complications Complications: none Site: Radial R Vitals: Vital Signs Vital Signs Assessment Start: 10/25/17 19:48 Freq: Status: Complete Protocol: Activity Type Activity Date Activity User E-Sign Co-Sign Detail Recorded Client Recorded Date Recorded By Egoscue 10/25/17 19:48 System [id number] 10/25/17 19:48 System Document 10/31/17 23:25 TMM [id number] 10/31/17 23:29 TMM 10/31/17 23:25 Vital Signs with MEWS [Temperature] -Temperature (97.6 F-99.6 F) 97.7 F -Temperature Source Oral [Pulse] -Pulse Rate (beats/min) 72 [Respirations] -Respiratory Rate (breaths/min) 16 -Pulse Oximetry (%) 97 -Oxygen Delivery Method Room Air [Blood Pressure] -Blood Pressure (mm Hg) 128/70 -Blood Pressure Location Left Arm -Source Automatic Cuff -Position Right Lateral [MEWS Score] -Neuro Status *recalled from last Alert documentation -MEWS Score 1 Vital Signs Assessment Start: 10/25/17 20:02 Freq: PROTOCOL Status: Complete Protocol: Activity Type Activity Date Activity User E-Sign Co-Sign Detail Recorded Client Recorded Date Recorded By Egoscue 10/25/17 20:04 [id number] PENITENTIARY-BG16 10/25/17 20:04 BKG DAEMON Document 10/25/17 21:01 BPP [id number] 10/25/17 21:01 BPP Document 10/25/17 22:57 BPP [id number] 10/25/17 22:58 BPP 10/25/17 10/25/17 21:01 22:57 ED Vital Signs [Pain] -Pain Reported No Pain No Pain Reported Reported [Blood Pressure] -Blood Pressure (mm Hg) 149/68 173/112 [Pulse] -Pulse Rate (beats/min) 83 104 [Respirations] -Respiratory Rate (breaths/min) 20 20 [Oxygen Delivery] -Pulse Oximetry (%) 95 96 -Oxygen Delivery Nasal Cannula Nasal Cannula -Oxygen Flow Rate (LPM) 2 2 Vital Signs Assessment Start: 10/25/17 22:04 Freq: QSHIFT Status: Complete Protocol: Activity Type Activity Date Activity User E-Sign Co-Sign Detail Recorded Client Recorded Date Recorded By Egoscue 10/25/17 22:05 FLASH [facility]ENITENT[facility]-BG16 10/25/17 22:05 BKG DAEMON Document 10/30/17 03:48 SRM [id number] 10/30/17 03:49 SRM 10/30/17 03:48 Vital Signs with MEWS [Temperature] -Temperature (97.6 F-99.6 F) 98.0 F -Temperature Source Oral [Pulse] -Pulse Rate (beats/min) 63 [Respirations] -Respiratory Rate (breaths/min) 19 -Pulse Oximetry (%) 96 -Oxygen Delivery Method Room Air [Blood Pressure] -Blood Pressure (mm Hg) 127/51 -Blood Pressure Location Right Arm -Source Automatic Cuff -Position HOB Elevated [MEWS Score] -Neuro Status *recalled from last Alert documentation -MEWS Score 1 Vital Signs Assessment Start: 10/25/17 23:17 Freq: Q4H Status: Active Protocol: Activity Type Activity Date Activity User E-Sign Co-Sign Detail Recorded Client Recorded Date Recorded By Egoscue 10/25/17 23:17 BRL [id number] 10/25/17 23:17 BRL Document 10/25/17 23:51 MN [id number] 10/25/17 23:53 MN Document 10/26/17 03:31 SRV [id number] 10/26/17 03:33 SRV Document 10/26/17 07:11 JJL [id number] 10/26/17 07:12 JJL Document 10/27/17 11:50 JJL [id number] 10/27/17 11:51 JJL Document 10/27/17 16:08 JJL [id number] 10/27/17 16:09 JJL Document 10/27/17 18:49 [id number] 10/27/17 18:51 [id number] Document 10/27/17 23:28 [id number] 10/27/17 23:33 [id number] Document 10/28/17 04:50 [id number] 10/28/17 04:51 [id number] Document 10/28/17 07:52 MNC [id number] 10/28/17 07:54 MNC Document 10/28/17 13:34 AO [id number] 10/28/17 13:35 AO Document 10/28/17 15:49 JJL [id number] 10/28/17 15:50 JJL Document 10/28/17 18:23 OJJ [id number] 10/28/17 18:25 OJJ Document 10/28/17 22:12 OJJ [id number] 10/28/17 22:13 OJJ Document 10/29/17 02:27 OJJ [id number] 10/29/17 02:30 OJJ Document 10/29/17 06:00 BMP [id number] 10/29/17 07:42 BMP Document 10/29/17 13:36 BMP [id number] 10/29/17 13:37 BMP Document 10/29/17 16:44 BMP [id number] 10/29/17 16:44 BMP Document 10/29/17 19:29 [id number] 10/29/17 19:30 [id number] Document 10/29/17 23:43 SRM [id number] 10/29/17 23:44 SRM Document 10/30/17 07:42 MJG [id number] 10/30/17 07:48 MJG Document 10/30/17 11:35 MJG [id number] 10/30/17 11:40 MJG Document 10/30/17 16:36 MJG [id number] 10/30/17 16:40 MJG Document 10/30/17 19:02 KW [id number] 10/30/17 19:05 KW Document 10/30/17 23:02 KW [id number] 10/30/17 23:04 KW Document 10/31/17 03:05 KW [id number] 10/31/17 03:46 KW Document 10/31/17 07:00 MN [id number] 10/31/17 07:21 MN Document 10/31/17 10:52 MN [id number] 10/31/17 10:54 MN Document 10/31/17 16:53 MN [id number] 10/31/17 16:58 MN Document 10/31/17 18:49 TMM [id number] 10/31/17 18:55 TMM Document 11/01/17 03:26 TMM [id number] 11/01/17 03:29 TMM Document 11/01/17 07:41 DAM [id number] 11/01/17 07:42 DAM 10/25/17 10/26/17 10/26/17 23:51 03:31 07:11 Vital Signs (Critical Care) [Temperature] -Temperature (97.6 F-99.6 F) -Temperature Source [Pulse] -Right Radial -Left Radial -Right Dorsalis Pedis -Left Dorsalis Pedis [Respirations] -Respiratory Rate (breaths/min) -Pulse Oximetry (%) -Oxygen Delivery Method -Oxygen Flow Rate (Liters) [Blood Pressure] -Blood Pressure (mm Hg) -Source [MEWS] -Neuro Status *Recalled from last documented assessment Vital Signs with MEWS [Temperature] -Temperature (97.6 F-99.6 F) 99.3 F 98.4 F 98.8 F -Temperature Source Oral Oral Oral [Pulse] -Pulse Rate (beats/min) 74 73 70 [Respirations] -Respiratory Rate (breaths/min) 17 16 14 -Pulse Oximetry (%) 96 94 98 -Oxygen Delivery Method Room Air Room Air Room Air [Blood Pressure] -Blood Pressure (mm Hg) 135/66 117/67 132/52 -Blood Pressure Location Right Arm Left Arm Left Arm -Source Automatic Cuff Automatic Cuff Automatic Cuff -Position Sitting HOB Elevated Supine [MEWS Score] -Neuro Status *recalled from last Alert Alert Alert documentation -MEWS Score 1 1 0 10/27/17 10/27/17 10/27/17 11:50 16:08 18:49 Vital Signs (Critical Care) [Temperature] -Temperature (97.6 F-99.6 F) -Temperature Source [Pulse] -Right Radial -Left Radial -Right Dorsalis Pedis -Left Dorsalis Pedis [Respirations] -Respiratory Rate (breaths/min) -Pulse Oximetry (%) -Oxygen Delivery Method -Oxygen Flow Rate (Liters) [Blood Pressure] -Blood Pressure (mm Hg) -Source [MEWS] -Neuro Status *Recalled from last documented assessment Vital Signs with MEWS [Temperature] -Temperature (97.6 F-99.6 F) 97.5 F L 98.1 F 97.8 F -Temperature Source Oral Oral Oral [Pulse] -Pulse Rate (beats/min) 92 69 67 [Respirations] -Respiratory Rate (breaths/min) 14 14 16 -Pulse Oximetry (%) 97 96 97 -Oxygen Delivery Method Room Air Room Air Room Air [Blood Pressure] -Blood Pressure (mm Hg) 138/79 169/74 146/78 -Blood Pressure Location Left Arm Left Arm Right Arm -Source Automatic Cuff Automatic Cuff Automatic Cuff -Position Sitting Sitting HOB Elevated [MEWS Score] -Neuro Status *recalled from last Alert Alert Alert documentation -MEWS Score 0 0 1 10/27/17 10/28/17 10/28/17 23:28 04:50 07:52 Vital Signs (Critical Care) [Temperature] -Temperature (97.6 F-99.6 F) -Temperature Source [Pulse] -Right Radial -Left Radial -Right Dorsalis Pedis -Left Dorsalis Pedis [Respirations] -Respiratory Rate (breaths/min) -Pulse Oximetry (%) -Oxygen Delivery Method -Oxygen Flow Rate (Liters) [Blood Pressure] -Blood Pressure (mm Hg) -Source [MEWS] -Neuro Status *Recalled from last documented assessment Vital Signs with MEWS [Temperature] -Temperature (97.6 F-99.6 F) 98.0 F 97.8 F 97.8 F -Temperature Source Oral Oral Oral [Pulse] -Pulse Rate (beats/min) 57 98 70 [Respirations] -Respiratory Rate (breaths/min) 16 16 18 -Pulse Oximetry (%) 95 96 99 -Oxygen Delivery Method Room Air Room Air Room Air [Blood Pressure] -Blood Pressure (mm Hg) 143/78 167/63 145/75 -Blood Pressure Location Left Arm Left Arm Right Arm -Source Automatic Cuff Automatic Cuff Automatic Cuff -Position HOB Elevated Standing Sitting [MEWS Score] -Neuro Status *recalled from last Alert Alert Alert documentation -MEWS Score 1 1 1 10/28/17 10/28/17 10/28/17 13:34 15:49 18:23 Vital Signs (Critical Care) [Temperature] -Temperature (97.6 F-99.6 F) -Temperature Source [Pulse] -Right Radial -Left Radial -Right Dorsalis Pedis -Left Dorsalis Pedis [Respirations] -Respiratory Rate (breaths/min) -Pulse Oximetry (%) -Oxygen Delivery Method -Oxygen Flow Rate (Liters) [Blood Pressure] -Blood Pressure (mm Hg) -Source [MEWS] -Neuro Status *Recalled from last documented assessment Vital Signs with MEWS [Temperature] -Temperature (97.6 F-99.6 F) 97.7 F 98.5 F 99.2 F -Temperature Source Oral Oral Oral [Pulse] -Pulse Rate (beats/min) 82 71 71 [Respirations] -Respiratory Rate (breaths/min) 18 14 16 -Pulse Oximetry (%) 93 93 95 -Oxygen Delivery Method Room Air Room Air Room Air [Blood Pressure] -Blood Pressure (mm Hg) 141/68 117/74 123/71 -Blood Pressure Location Left Arm Left Arm Left Arm -Source Automatic Cuff Automatic Cuff Automatic Cuff -Position Sitting Supine [MEWS Score] -Neuro Status *recalled from last Alert Alert Alert documentation -MEWS Score 1 0 1 10/28/17 10/29/17 10/29/17 22:12 02:27 06:00 Vital Signs (Critical Care) [Temperature] -Temperature (97.6 F-99.6 F) -Temperature Source [Pulse] -Right Radial -Left Radial -Right Dorsalis Pedis -Left Dorsalis Pedis [Respirations] -Respiratory Rate (breaths/min) -Pulse Oximetry (%) -Oxygen Delivery Method -Oxygen Flow Rate (Liters) [Blood Pressure] -Blood Pressure (mm Hg) -Source [MEWS] -Neuro Status *Recalled from last documented assessment Vital Signs with MEWS [Temperature] -Temperature (97.6 F-99.6 F) 99.0 F 98.4 F 97.8 F -Temperature Source Oral Oral Oral [Pulse] -Pulse Rate (beats/min) 88 68 78 [Respirations] -Respiratory Rate (breaths/min) 16 16 16 -Pulse Oximetry (%) 92 96 97 -Oxygen Delivery Method Room Air Room Air Room Air [Blood Pressure] -Blood Pressure (mm Hg) 136/71 109/63 149/79 -Blood Pressure Location Left Arm Left Arm Right Arm -Source Automatic Cuff Automatic Cuff Automatic Cuff -Position Supine Supine HOB Elevated [MEWS Score] -Neuro Status *recalled from last Alert Alert documentation -MEWS Score 1 1 10/29/17 10/29/17 10/29/17 13:36 16:44 19:29 Vital Signs (Critical Care) [Temperature] -Temperature (97.6 F-99.6 F) -Temperature Source [Pulse] -Right Radial -Left Radial -Right Dorsalis Pedis -Left Dorsalis Pedis [Respirations] -Respiratory Rate (breaths/min) -Pulse Oximetry (%) -Oxygen Delivery Method -Oxygen Flow Rate (Liters) [Blood Pressure] -Blood Pressure (mm Hg) -Source [MEWS] -Neuro Status *Recalled from last documented assessment Vital Signs with MEWS [Temperature] -Temperature (97.6 F-99.6 F) 97.7 F 97.9 F 97.9 F -Temperature Source Oral Oral Oral [Pulse] -Pulse Rate (beats/min) 80 66 94 [Respirations] -Respiratory Rate (breaths/min) 16 16 16 -Pulse Oximetry (%) 97 95 95 -Oxygen Delivery Method Room Air Room Air Room Air [Blood Pressure] -Blood Pressure (mm Hg) 118/55 129/71 160/78 -Blood Pressure Location Left Calf Left Arm Left Arm -Source Automatic Cuff Automatic Cuff Automatic Cuff -Position Sitting HOB Elevated Sitting [MEWS Score] -Neuro Status *recalled from last Alert documentation -MEWS Score 1 10/29/17 10/30/17 10/30/17 23:43 07:42 11:35 Vital Signs (Critical Care) [Temperature] -Temperature (97.6 F-99.6 F) -Temperature Source [Pulse] -Right Radial -Left Radial -Right Dorsalis Pedis -Left Dorsalis Pedis [Respirations] -Respiratory Rate (breaths/min) -Pulse Oximetry (%) -Oxygen Delivery Method -Oxygen Flow Rate (Liters) [Blood Pressure] -Blood Pressure (mm Hg) -Source [MEWS] -Neuro Status *Recalled from last documented assessment Vital Signs with NDWS [Temperature] -Temperature (97.6 F-99.6 F) 97.9 F 97.9 F 98.0 F -Temperature Source Oral Oral Oral [Pulse] -Pulse Rate (beats/min) 71 72 71 [Respirations] -Respiratory Rate (breaths/min) 14 18 18 -Pulse Oximetry (%) 97 94 96 -Oxygen Delivery Method Room Air Room Air Room Air [Blood Pressure] -Blood Pressure (mm Hg) 129/76 134/70 143/77 -Blood Pressure Location Right Arm Right Arm Left Arm -Source Automatic Cuff Automatic Cuff Automatic Cuff -Position HOB Elevated Sitting Sitting [MEWS Score] -Neuro Status *recalled from last Alert Alert Alert documentation -MEWS Score 0 1 1 10/30/17 10/30/17 10/30/17 16:36 19:02 23:02 Vital Signs (Critical Care) [Temperature] -Temperature (97.6 F-99.6 F) 98.5 F -Temperature Source Oral [Pulse] -Right Radial 2+ -Left Radial 2+ -Right Dorsalis Pedis 2+ -Left Dorsalis Pedis 2+ [Respirations] -Respiratory Rate (breaths/min) 16 -Pulse Oximetry (%) 96 -Oxygen Delivery Method Room Air -Oxygen Flow Rate (Liters) 2 [Blood Pressure] -Blood Pressure (mm Hg) 157/74 -Source Automatic Cuff [MEWS] -Neuro Status *Recalled from last Alert documented assessment Vital Signs with MEWS [Temperature] -Temperature (97.6 F-99.6 F) 98.5 F 98.5 F 97.7 F -Temperature Source Oral Oral Oral [Pulse] -Pulse Rate (beats/min) 75 74 75 [Respirations] -Respiratory Rate (breaths/min) 18 16 16 -Pulse Oximetry (%) 98 96 95 -Oxygen Delivery Method Room Air Room Air Room Air [Blood Pressure] -Blood Pressure (mm Hg) 130/70 157/74 129/54 -Blood Pressure Location Left Arm Left Arm Left Arm -Source Automatic Cuff Automatic Cuff Automatic Cuff -Position Sitting Sitting HOB Elevated [MEWS Score] -Neuro Status *recalled from last Alert Alert Alert documentation -MEWS Score 1 1 1 10/31/17 10/31/17 10/31/17 03:05 07:00 10:52 Vital Signs (Critical Care) [Temperature] -Temperature (97.6 F-99.6 F) -Temperature Source [Pulse] -Right Radial -Left Radial -Right Dorsalis Pedis -Left Dorsalis Pedis [Respirations] -Respiratory Rate (breaths/min) -Pulse Oximetry (%) -Oxygen Delivery Method -Oxygen Flow Rate (Liters) [Blood Pressure] -Blood Pressure (mm Hg) -Source [MEWS] -Neuro Status *Recalled from last documented assessment Vital Signs with MEWS [Temperature] -Temperature (97.6 F-99.6 F) 97.7 F 98.5 F 98.4 F -Temperature Source Oral Oral Oral [Pulse] -Pulse Rate (beats/min) 72 67 71 [Respirations] -Respiratory Rate (breaths/min) 18 16 17 -Pulse Oximetry (%) 97 96 96 -Oxygen Delivery Method Room Air Room Air Room Air [Blood Pressure] -Blood Pressure (mm Hg) 150/63 127/63 138/60 -Blood Pressure Location Left Arm Left Arm Right Arm -Source Automatic Cuff Automatic Cuff Automatic Cuff -Position Sitting Right Lateral Sitting [MEWS Score] -Neuro Status *recalled from last Alert Alert Alert documentation -MEWS Score 1 1 10/31/17 10/31/17 11/01/17 16:53 18:49 03:26 Vital Signs (Critical Care) [Temperature] -Temperature (97.6 F-99.6 F) -Temperature Source [Pulse] -Right Radial -Left Radial -Right Dorsalis Pedis -Left Dorsalis Pedis [Respirations] -Respiratory Rate (breaths/min) -Pulse Oximetry (%) -Oxygen Delivery Method -Oxygen Flow Rate (Liters) [Blood Pressure] -Blood Pressure (mm Hg) -Source [MEWS] -Neuro Status *Recalled from last documented assessment Vital Signs with MEWS [Temperature] -Temperature (97.6 F-99.6 F) 97.9 F 98.9 F 98.1 F -Temperature Source Oral Oral Oral [Pulse] -Pulse Rate (beats/min) 71 69 68 [Respirations] -Respiratory Rate (breaths/min) 17 16 16 -Pulse Oximetry (%) 97 97 94 -Oxygen Delivery Method Room Air Room Air Room Air [Blood Pressure] -Blood Pressure (mm Hg) 139/68 122/58 129/65 -Blood Pressure Location Left Arm Left Arm Left Arm -Source Automatic Cuff Automatic Cuff Automatic Cuff -Position Sitting Right Lateral Right Lateral [MEWS Score] -Neuro Status *recalled from last Alert Alert Alert documentation -MEWS Score 1 1 1 11/01/17 07:41 Vital Signs (Critical Care) [Temperature] -Temperature (97.6 F-99.6 F) -Temperature Source [Pulse] -Right Radial -Left Radial -Right Dorsalis Pedis -Left Dorsalis Pedis [Respirations] -Respiratory Rate (breaths/min) -Pulse Oximetry (%) -Oxygen Delivery Method -Oxygen Flow Rate (Liters) [Blood Pressure] -Blood Pressure (mm Hg) -Source [MEWS] -Neuro Status *Recalled from last documented assessment Vital Signs with MEWS [Temperature] -Temperature (97.6 F-99.6 F) 98.1 F -Temperature Source Oral [Pulse] -Pulse Rate (beats/min) 68 [Respirations] -Respiratory Rate (breaths/min) 16 -Pulse Oximetry (%) 97 -Oxygen Delivery Method Room Air [Blood Pressure] -Blood Pressure (mm Hg) 159/65 -Blood Pressure Location Left Arm -Source Automatic Cuff -Position Supine [MEWS Score] -Neuro Status *recalled from last Alert documentation -MEWS Score 1 Vital Signs Assessment Start: 10/26/17 13:46 Freq: Q15MX4,Q1HX2,Q4H Status: Complete Protocol: Activity Type Activity Date Activity User E-Sign Co-Sign Detail Recorded Client Recorded Date Recorded By Created 10/26/17 13:47 [facility]ENITENTI[facility]-BG16 10/26/17 13:47 BKG DAEMON Document 10/26/17 15:46 J [id number] 10/26/17 15:47 JL Document 10/26/17 19:41 TMM [id number] 10/26/17 19:48 TMM Document 10/26/17 22:46 TMM [id number] 10/26/17 22:49 TMM Document 10/27/17 03:40 TMM [id number] 10/27/17 03:41 TMM Document 10/27/17 06:38 JJL [id number] 10/27/17 06:39 JJL 10/26/17 10/26/17 10/26/17 15:46 19:41 22:46 Vital Signs with MEWS [Temperature] -Temperature (97.6 F-99.6 F) 99.4 F 98.6 F 97.9 F -Temperature Source Oral Oral Oral [Pulse] -Pulse Rate (beats/min) 85 78 91 [Respirations] -Respiratory Rate (breaths/min) 14 18 16 -Pulse Oximetry (%) 94 95 98 -Oxygen Delivery Method Room Air Room Air Room Air [Blood Pressure] -Blood Pressure (mm Hg) 146/78 167/73 144/65 -Blood Pressure Location Left Arm Right Arm Right Arm -Source Automatic Cuff Automatic Cuff Automatic Cuff -Position Supine Supine Sitting [MEWS Score] -Neuro Status *recalled from last Alert Alert Alert documentation -MEWS Score 0 1 1 10/27/17 10/27/17 03:40 06:38 Vital Signs with MEWS [Temperature] -Temperature (97.6 F-99.6 F) 98.6 F 98.2 F -Temperature Source Oral Oral [Pulse] -Pulse Rate (beats/min) 95 93 [Respirations] -Respiratory Rate (breaths/min) 16 14 -Pulse Oximetry (%) 96 95 -Oxygen Delivery Method Room Air Room Air [Blood Pressure] -Blood Pressure (mm Hg) 147/73 120/78 -Blood Pressure Location Left Arm Right Arm -Source Automatic Cuff Automatic Cuff -Position Right Lateral Supine [MEWS Score] -Neuro Status *recalled from last Alert Alert documentation -MEWS Score 1 0 Vital Signs Assessment Start: 11/01/17 08:18 Freq: Q15MX4,Q1HX2,Q4H Status: Active Protocol: Activity Type Activity Date Activity User E-Sign Co-Sign Detail Recorded Client Recorded Date Recorded By Created 11/01/17 08:18 [id number] PENITENTIARY-BG16 11/01/17 08:18 BKG DAEMON Document 11/01/17 14:50 DAM [id number] 11/01/17 14:50 DAM Document 11/01/17 19:05 TM [id number] 11/01/17 19:11 TMM Document 11/02/17 04:16 TM [id number] 11/02/17 04:25 TMM Document 11/02/17 06:36 DAM [id number] 11/02/17 06:37 DAM 11/01/17 11/01/17 11/02/17 14:50 19:05 04:16 Vital Signs with MEWS [Temperature] -Temperature (97.6 F-99.6 F) 97.8 F 97.8 F 97.8 F -Temperature Source Oral Oral Oral [Pulse] -Pulse Rate (beats/min) 70 69 81 [Respirations] -Respiratory Rate (breaths/min) 16 16 14 -Pulse Oximetry (%) 94 97 95 -Oxygen Delivery Method Room Air Room Air Room Air [Blood Pressure] -Blood Pressure (mm Hg) 145/70 181/82 148/93 -Blood Pressure Location Left Arm Left Arm Right Arm -Source Automatic Cuff Automatic Cuff Automatic Cuff -Position Sitting Sitting Sitting [MEWS Score] -Neuro Status *recalled from last Alert Alert Alert documentation -MEWS Score 1 1 0 11/02/17 06:36 Vital Signs with MEWS [Temperature] -Temperature (97.6 F-99.6 F) 97.3 F L -Temperature Source Oral [Pulse] -Pulse Rate (beats/min) 80 [Respirations] -Respiratory Rate (breaths/min) 15 -Pulse Oximetry (%) 96 -Oxygen Delivery Method Room Air [Blood Pressure] -Blood Pressure (mm Hg) 126/62 -Blood Pressure Location Left Arm -Source Automatic Cuff -Position Supine [MEWS Score] -Neuro Status *recalled from last Alert documentation -MEWS Score 1 Vital Signs Assessment Start: 11/01/17 18:24 Freq: CONT Status: Active Protocol: Activity Type Activity Date Activity User E-Sign Co-Sign Detail Recorded Client Recorded Date Recorded By Created 11/01/17 18:27 EVERT PENITENTIARY-BG16 11/01/17 18:27 MINO DAEMON Document 11/01/17 23:16 [facility] [id number] 11/01/17 23:20 [facility] 11/01/17 23:16 Vital Signs with MEWS [Temperature] -Temperature (97.6 F-99.6 F) 98 F -Temperature Source Oral [Pulse] -Pulse Rate (beats/min) 89 [Respirations] -Respiratory Rate (breaths/min) 16 -Pulse Oximetry (%) 94 -Oxygen Delivery Method Room Air [Blood Pressure] -Blood Pressure (mm Hg) 183/47 -Blood Pressure Location Right Arm -Source Automatic Cuff -Position Sitting [MEWS Score] -Neuro Status *recalled from last Alert documentation -MEWS Score 1 Vital Signs Temperature 97.6 F 10/25/17 19:44 Pulse Rate 72 10/25/17 19:44 Respiratory Rate 16 10/25/17 19:44 Blood Pressure 172/85 10/25/17 19:44 O2 Sat by Pulse Oximetry 93 10/25/17 19:44 Temperature 97.5 F L 11/02/17 12:27 Pulse Rate 80 11/02/17 06:36 Respiratory Rate 18 11/02/17 12:27 Blood Pressure 131/62 11/02/17 12:27 O2 Sat by Pulse Oximetry 96 11/02/17 06:36 Oxygen Delivery Oxygen Delivery Room Air
[2017-11-02] MEDS ORDERED: *HR* Labetalol 20 MG/4 ML SYRINGE IVP PRN (14:40)
[2017-11-02] MEDS ORDERED: Ondansetron 4 MG/2 ML VIAL IVP ONE (14:40)
--- NOTE | 2017-11-02 14:45 | Operative Note ---
Date of procedure: 11/02/17 Pre-op diagnosis: chronic kidney disease, stage 4 Post-op diagnosis: same Procedure: Laparoscopic-assisted placement of peritoneal dialysis catheter Implants: Covidien [place] 62 cm, 2 cuff, peritoneal dialysis catheter Complications: None apparent Anesthesia: GETA Local Anesthetics: 0.25% Sensorcaine HCL with Epinephrine 1:200,000 SubQ (cc) ( 18 mL) Surgeon: Gilberto Nagy Was there an environmental engineering assistant present: No Estimated blood loss (cc): 2 IV fluids (cc): 250 Specimen: none Condition: stable Disposition: PACU Procedure in Detail: The patient was brought to the operating room where he was placed supine on the operating table. She was appropriately identified as to person and procedure. The accuracy of this information was confirmed by the patient and the procedure team. The patient was then intubated and anesthetized under the supervision of Dr. Sutton. The abdomen was prepped and draped in usual sterile fashion. Several milliliters 0.25% bupivacaine with 1-200,000 epinephrine was infiltrated into the infraumbilical skin. A small incision was made with dissection extended to the fascia. Additional bupivacaine with epinephrine was infiltrated into the fascia. The fascia was grasped, elevated, and incised. A 5 mm Xcel port was established. The rigid laparoscope was placed within the obturator to visualize passage through the layers of the anterior abdominal wall. Once the abdominal cavity was accessed, the obturator was replaced by the rigid laparoscope and the abdomen was insufflated with gaseous carbon dioxide. There was no obvious visible injury from establishing the port. Under direct visualization a second 5 mm port was placed in the right upper quadrant. Visual survey of the abdomen demonstrated some adhesions in the pelvis. These adhesions were divided with endoscopic scissors. Another 5 mm port was established in the left upper quadrant. A Covidien [place] 62 cm, 2 cuff peritoneal dialysis catheter was passed through the infraumbilical opening and placed in the pelvis. The more distal cuff was advanced to the fascia. The proximal portion of the peritoneal dialysis catheter was tunneled subcutaneously to the left of the umbilicus curving onto the anterior abdominal wall and exited with the second cuff below the skin. The catheter was secured to the anterior abdominal wall with 2-0 silk. Using endoscopic graspers, the curved portion of the dialysis catheter was positioned deeper into the pelvis. The catheter was then irrigated with approximately 100 mL sterile saline. Catheter irrigated easily with back flow of the saline. The catheter was then irrigated with 60 mL of sterile heparinized saline, 60 mL was returned. One final flush with 20 mL heparinized saline was completed. The infraumbilical fascia was closed with interrupted [id number] Vicryl. The skin incisions were approximated with subcuticular 4-0 Vicryl and sealed with Dermabond dermal adhesive. A drain sponge placed around the exit site of the peritoneal dialysis catheter. The patient was taken to recovery in stable condition. Needle, sponge, and instrument counts were correct at the close of the case. Total volume of 0.25% bupivacaine with 1-200,000 epinephrine, 18 mL.
[2017-11-02] MEDS: MORPHINE SUL Oral CONC 10 MG/0.5 ML ORAL.SYG SL PRN ×2 (15:34→15:44)
--- NOTE | 2017-11-02 15:42 | Anesthesia Evaluation Post Op ---
Date of Encounter: 11/02/17 Time of Encounter: 15:41 - Vital Signs Vital Signs: Vital Signs/O2 Sat, Most Current Temp Pulse Resp BP Pulse Ox 97.2 F L 62 16 142/80 97 11/02/17 15:27 11/02/17 15:27 11/02/17 15:27 11/02/17 15:27 11/02/17 15:27 - Lungs Lungs: Clear Ascult./Percussion - Airway Airway: Non-obstructed - Cardiovascular Irregular Rate, Baseline Rhythm - Mental Status Mental Status: Alert & Oriented, Answers Appropriately - Nausea Vomiting Nausea Vomiting: Not Present - Hydration Hydration: NPO - Discharge PostOp Status: Transfer Patient to floor Attestation: I have assessed this patient and find they meet discharge criteria.
[2017-11-02] MEDS: Acetaminophen 325 MG TABLET PO PRN (16:58)
[2017-11-02] MEDS: 0.9 % Sodium Chloride 500 ML IVC SCH (17:02)
--- NOTE | 2017-11-02 18:08 | Internal Med Progress Note ---
Date of Encounter: 11/02/17 Time of Encounter: 17:00 - Assessment and plan (1) Diabetes mellitus type 2, insulin dependent Current Visit: Yes Status: Chronic Assessment and plan: Continue sliding scale insulin, Accu-Cheks before meals and at bedtime, diabetic diet, basal insulin. Last Accu-Chek 160 mg/dL. (2) Elevated troponin Current Visit: No Status: Chronic Assessment and plan: Patient's troponins are chronically elevated, chronically secondary to chronic kidney disease, CHF. Suspect secondary to worsening renal function. Cardiology has evaluated the patient, patient has refused ICD in the past, is aware him for his risk of mortality with history of ICM and low ejection fraction. Echo with EF of 20-25%, severe global LV systolic function, indeterminant diastolic function, moderately dilated LV, mild MR, mild TR, mild pulmonary hypertension. The IVC is dilated. Per cardiology note, they can consider starting anticoagulant, Coumadin, due to CKD in the outpatient setting. (3) Ischemic cardiomyopathy Current Visit: No Status: Chronic Assessment and plan: EF 20-25%. Lungs are clear and diminished. Lower extremity edema has resolved. BNP elevated. Patient receiving IV Lasix, home dose of by mouth was held. Repeat TTE 10/29/17 with EF 20-25%, severe systolic dysfunction, indeterminate diastolic dysfunction, significant valvular dysfunction. Per patient history, cardiology has recommended ICD in the past, however, patient has refused. Cardiology discussed risk of sudden cardiac with patient and and patient refuse to consider ICD. Per cardiology note, they can consider starting Coumadin on an outpatient basis. Strict I's and O's, daily weight, renal diet. Patient improved with hemodialysis and IV Lasix. Hemodialysis again this morning. (4) Anemia Current Visit: Yes Status: Chronic Assessment and plan: Hgb 10.5 today, remained stable. No obvious/overt bleeding. Hemodynamically stable. Anemia of chronic disease, CKD, CHF. Iron and percent sat on low 30/9 respectively. Vitamin B12 is within normal limits, folate is within normal limits. We will obtain ferritin level in the morning and consider iron supplementation. Qualifiers: Anemia type: unspecified type Qualified Code(s): D64.9 - Anemia, unspecified (5) Dyspnea Current Visit: Yes Status: Resolved Assessment and plan: Patient reports YAO and orthopnea prior to admission. Likely secondary to volume overload from his kidney disease and cardiomyopathy. Dyspnea resolved. Qualifiers: Dyspnea type: dyspnea on exertion Qualified Code(s): R06.09 - Other forms of dyspnea (6) DVT prophylaxis Current Visit: Yes Status: Acute Assessment and plan: SCDs. No pharmacologic DVT prophylaxis due to thrombocytopenia. (7) Atrial flutter Current Visit: Yes Status: Acute Assessment and plan: New onset 4/4. Rate controlled. Patient been evaluated by cardiology, they have recommended anticoagulation, unable to start due to PD catheter placement tomorrow, as well as anemia. Can consider Coumadin outpatient per cardiology recommendations. Echocardiogram 10/28/17 17:43 Impressions: LVEF 20-25%. Severe global LV systolic dysfunction with atypical septal motion. Indeterminate diastolic function. There is no LV thrombus. Definity echo contrast was used. Moderately dilated left ventricle. RV is not well visualized. Mild, possibly moderate mitral regurgitation not well evaluated. Mild tricuspid regurgitation. Mild pulmonary hypertension. The IVC is dilated. Left Ventricular Wall Motion: Rest Echo Findings The apex, apical inferior, mid inferior, basal inferior, apical anterior, mid anterior, basal anterior, apical septal, mid inferior septal, basal inferior septal, apical lateral, mid anterior lateral, basal anterior lateral, mid inferior lateral and basal inferior lateral donald were hypokinetic. The mid anterior septal and basal anterior septal donald were dyskinetic. Findings: Study Quality * Technically challenging due to body habitus. ECG Findings * Atrial fibrillation/flutter. Left Ventricle * LVEF 20-25%. * Normal LV wall thickness. * Indeterminate diastolic function. * There is no LV thrombus. * Definity echo contrast was used. * Moderately dilated left ventricle. Right Ventricle * RV is not well visualized. Left Atrium * Moderately dilated left atrium. Right Atrium * Normal right atrial size. Aortic Valve * No aortic regurgitation. * Aortic valve not well visualized. * No aortic stenosis. Mitral Valve * Mitral valve leaflet structure and excursion are not optimally visualized. * Mild, possibly moderate mitral regurgitation not well evaluated. * No mitral stenosis. Tricuspid Valve * Tricuspid valve not well visualized. * Mild tricuspid regurgitation. * Estimated RA pressure is 8 mmHg. * Estimated RVSP is 45 mmHg. * Mild pulmonary hypertension. Pulmonic Valve * Pulmonic valve is not well visualized. * No pulmonic stenosis. * No pulmonic regurgitation. Pulmonary Artery * Pulmonary artery not well visualized. Aorta * Not well visualized. Pericardium * There is no pericardial effusion present. Interatrial Septum * No evidence of PFO by color Doppler. IVC * The IVC is dilated. * > 50% respiratory change Qualifiers: Atrial flutter type: unspecified Qualified Code(s): I48.92 - Unspecified atrial flutter (8) ESRD on dialysis Current Visit: Yes Status: Chronic Assessment and plan: Serum creatinine 4.28, GFR 14. Renal function has been declining since Nov, 2014. Patient had HD catheter placed yesterday, PD catheter placed today by Dr. aquino. Patient has hemodialysis on Tuesday, he has been evaluated by nephrology, recommend renal vitamins, renally dosed medications, renal diet, additional dialysis and ultrafiltration as needed. HD completed this morning. Continue to monitor labs. (9) Hypertension Current Visit: Yes Status: Chronic Assessment and plan: Well-controlled. Continue home BB. Continue to monitor vitals per admission order. Qualifiers: Hypertension type: essential hypertension Qualified Code(s): I10 - Essential (primary) hypertension (10) Thrombocytopenia Current Visit: No Status: Resolved - Time Spent With Patient Total time spent is greater than 50% in coordination of care (as documented) at patient's floor/unit and/or counseling patient: less than 15 minutes - Subjective Interval history: Patient was seen and assessed the bedside at 1700. He states he is not feeling well s/p PD cathether insertion. He denies headache, blurred vision, nausea, vomiting, diarrhea, diaphoresis. He reports abdominal pain, denies chest pain. He denies shortness of breath. There is no peripheral edema. Patient will most likely discharge in the morning. - Constitutional Vitals: Temp Pulse Resp BP Pulse Ox 97.2 F L 68 16 128/74 98 11/02/17 15:47 11/02/17 15:47 11/02/17 15:47 11/02/17 15:47 11/02/17 15:47 General appearance: Present: cooperative, A&O X 3, morbidly obese, pleasant, no acute distress, answers questions appropriately - Head Head exam: Present: atraumatic, normal inspection, normocephalic - Eye Eye exam: Present: normal appearance, conjuntiva pink, sclera anicteric - Neck Neck exam general surgery: Present: normal inspection, supple, trachea midline. Absent: lymphadenopathy, tenderness - Respiratory Respiratory exam: Present: CTAB. Absent: accessory muscle use, chest wall tenderness, rales, respiratory distress, rhonchi, wheezes - Cardiovascular Cardiovascular exam: Present: RRR, +S1, +S2. Absent: diastolic murmur, gallop, rubs, systolic murmur - GI/Abdominal GI/Abdominal exam: Present: distended, normal bowel sounds, soft, tenderness. Absent: hepatomegaly - Extremities Exam Extremities exam: Present: normal capillary refill, normal inspection, warm, radial pulses palpable and symmetrical. Absent: calf tenderness, cyanotic, pedal edema, tenderness - Neurological Exam Neurological exam: Present: alert, oriented X3, no focal deficits. Absent: facial droop, speech deficit - Skin Skin exam: Present: dry, intact, normal color, warm. Absent: rash Internal Medicine: Result - Labs CBC & Chem 7: 11/02/17 04:16 11/02/17 04:16 Labs: Short CBC 11/02/17 Range/Units 04:16 WBC 7.3 (4.3-11.1) K/mcL Hgb 10.5 L (12.9-16.9) g/dL Hct 31.9 L (37.5-50.1) % Plt Count 140 (140-400) K/mcL Neutrophils # 4.6 (1.6-8.9) K/mcL BMP 11/02/17 04:16 Sodium 137 Potassium 4.6 Chloride 105 Carbon Dioxide 20 L BUN 53 H Creatinine 4.28 H Glucose 151 H Calcium 8.3 L - ABG Interpretation ABG results: PT/INR, D-dimer PT 11.8 Seconds (9.4-12.1) 10/31/17 03:34 Consult Discharge Plan - Plan Referrals: Patria Joseph DO [Partnered Physician] - 11/30/17 11:15 am
[2017-11-02] MEDS: Insulin DETEMIR 100 UNIT/ML X5UNITS SQ SCH (21:39)
[2017-11-02] MEDS ORDERED: *HR* HYDROmorphone 2 MG TABLET PO PRN ×2 (22:41→22:52)
--- NOTE | 2017-11-02 23:22 | Event Note ---
Date of Encounter: 11/02/17 Time of Encounter: 22:24 Alerted by pts. nurse that Pt. is post-surgery today w/Tylenol and Roxanol ordered for pain. Spoke w/Pharmacy to determine safe pain medications w/renal dosing d/t pts. ESRD on dialysis dx. Tramadol 50 mg PO Q12 for moderate pain and Dilaudid 2 mg by mouth every 8 hour when necessary for severe pain ordered per Pharmacy. Continue to monitor pt. and pain.
[2017-11-03] MEDS: Ipratropium/Albuterol Neb 3 ML IH SCH ×3 (03:25→16:10)
[2017-11-03] MEDS ORDERED: traMADol 50 MG TABLET PO SCH ×2 (06:00)
[2017-11-03 07:17] LABS: Hematocrit 32.4 % (37.5-50.1); Hemoglobin 10.1 g/dL (12.9-16.9); Mean Corpuscular HGB Conc 31.2 g/dL (31.6-35.5); Mean Corpuscular Hemoglobin 27.8 pg (28.0-33.3); Mean Corpuscular Volume 89.3 fL (83.0-100.0); Mean Platelet Volume 9.5 fL (9.4-12.4); Platelet Count 129 K/mcL (140-400); Red Blood Count 3.63 M/mcL (4.19-5.50); Red Cell Distribution Width 13.2 % (11.5-14.5)
[2017-11-03 07:26] LABS: Calcium 8.5 mg/dL (8.6-10.3); Potassium 4.7 mEq/L (3.5-5.1)
[2017-11-03] MEDS: Metoprolol XL (24 HR) Succ 50 MG TAB.ER.24H PO SCH (08:06)
[2017-11-03] MEDS: Furosemide 40 MG TABLET PO SCH (08:06)
[2017-11-03] MEDS: Insulin LISPRO 300 UNITS/3 ML VIAL SQ SCH ×3 (08:09→17:34)
--- NOTE | 2017-11-03 12:08 | General Surgery Progress Note ---
Date of Encounter: 11/03/17 Time of Encounter: 11:55 Subjective Narrative: General Surgery - Feeling well, only complaint - the patient hasn't urinated since surgery Denies abd pain, N/V. The patient has remained afebrile, currently 97.7, pulse 62, respirations 18, blood pressure 152/72 Abdomen soft, nontender. Port sites/incisions intact, clean and dry. Peritoneal dialysis catheter appears intact. Exit site through the skin is also intact. Impression : Postoperative day 1, status post upper endoscopy with laparoscopic lysis of adhesions and laparoscopic-assisted placement of PD catheter. Acceptable status Patient has not voided since surgery; will order straight catheter PD catheter care/irrigation/peritoneal dialysis referred to nephrology service Objective Vital Signs - Last 8 Hours Temp Pulse Resp BP Pulse Ox 11/03/17 10:42 97.7 F 62 18 152/72 92 11/03/17 06:41 97.7 F 65 16 132/63 97 Intake and Output 11/02/17 11/03/17 11/03/17 23:59 07:59 15:59 Intake Total 360 / 360 Output Total 500 / 500 Balance -500 / -500 360 / 360 Intake: Oral 360 / 360 Output: Urine 500 / 500 Other: Meal Breakfast Percent of Meal Consumed 100% Blood Glucose* 285 242 240 - Labs 11/03/17 06:19 11/03/17 06:19 Diabetes panel 11/03/17 Range/Units 06:19 Sodium 137 (136-145) mEq/L Potassium 4.7 (3.5-5.1) mEq/L Chloride 102 (98-107) mEq/L Carbon Dioxide 26 (23-29) mEq/L BUN 41 H (8-23) mg/dL Creatinine 3.89 H (0.70-1.30) mg/dL Glucose 259 H (70-105) mg/dL Calcium 8.5 L (8.6-10.3) mg/dL Calcium panel 11/03/17 Range/Units 06:19 Calcium 8.5 L (8.6-10.3) mg/dL Pituitary panel 11/03/17 Range/Units 06:19 Sodium 137 (136-145) mEq/L Potassium 4.7 (3.5-5.1) mEq/L Chloride 102 (98-107) mEq/L Carbon Dioxide 26 (23-29) mEq/L BUN 41 H (8-23) mg/dL Creatinine 3.89 H (0.70-1.30) mg/dL Glucose 259 H (70-105) mg/dL Calcium 8.5 L (8.6-10.3) mg/dL Adrenal panel 11/03/17 Range/Units 06:19 Sodium 137 (136-145) mEq/L Potassium 4.7 (3.5-5.1) mEq/L Chloride 102 (98-107) mEq/L Carbon Dioxide 26 (23-29) mEq/L BUN 41 H (8-23) mg/dL Creatinine 3.89 H (0.70-1.30) mg/dL Glucose 259 H (70-105) mg/dL Calcium 8.5 L (8.6-10.3) mg/dL - VTE Documentation of Mechanical Device: Intermittent pneumatic compression device Consult Discharge Plan - Plan Referrals: Patria Joseph DO [Partnered Physician] - 11/30/17 11:15 am
--- NOTE | 2017-11-03 13:05 | Nephrology Progress Note ---
Date of Encounter: 11/03/17 Time of Encounter: 13:03 - Assessment and Plan (1) ESRD on dialysis Current Visit: Yes Status: Chronic Plan for HD tomorrow Patient going to [place] for HD HD nurse in [place] notified yesterday to have PD nurse follow up with patient after discharge. (2) Diabetes mellitus type 2, insulin dependent Current Visit: Yes Status: Chronic per primary team (3) Hypertension Current Visit: Yes Status: Chronic per primary team Qualifiers: Hypertension type: essential hypertension Qualified Code(s): I10 - Essential (primary) hypertension Subjective Principal diagnosis: ESRD on dialysis, dyspnea Interval history: Patient seen and examined. States he is feeling well. He states he is ready to go home. Objective - Vital Signs Vital signs: Vital Signs Temp Pulse Resp BP Pulse Ox 11/03/17 10:42 97.7 F 62 18 152/72 92 11/03/17 08:22 97 11/03/17 06:41 97.7 F 65 16 132/63 97 11/03/17 03:27 18 93 11/03/17 03:26 98.3 F 73 124/64 94 11/02/17 23:12 98.3 F 106 16 116/65 95 11/02/17 22:46 151/74 11/02/17 22:02 18 94 11/02/17 18:55 98.5 F 70 16 122/71 96 11/02/17 15:47 97.2 F L 68 16 128/74 98 11/02/17 15:37 97.2 F L 67 16 138/60 98 11/02/17 15:27 97.2 F L 62 16 142/80 97 11/02/17 15:17 97.2 F L 67 16 162/69 98 11/02/17 15:07 65 16 171/73 97 11/02/17 14:57 67 18 176/82 97 11/02/17 14:47 99.4 F 77 20 160/59 99 Intake and Output 11/02/17 11/03/17 11/03/17 23:59 07:59 15:59 Intake Total 360 / 360 Output Total 500 / 500 200 / 200 Balance -500 / -500 160 / 160 Intake: Oral 360 / 360 Output: Urine 500 / 500 Catheter 200 / 200 Urethral (Mac) 200 / 200 Other: Meal Breakfast Percent of Meal Consumed 100% Blood Glucose* 285 242 240 - General Appearance General appearance: Present: well-developed, well-nourished EENT: Present: ATNC Neck: Present: supple Respiratory: Present: clear Cardiology: Present: no edema, normal S1, normal S2 Dialysis Vascular Access: Venous Catheter Gastrointestinal: Present: normoactive bowel sounds Integumentary: Present: warm and dry Neurologic: Present: alert and oriented x3 Psychiatric: Present: mood/affect appropriate, cooperative - Lab 11/03/17 06:19 11/03/17 06:19 Most recent lab results Calcium 8.5 mg/dL (8.6-10.3) L 11/03/17 06:19 Phosphorus 4.3 mg/dL (2.7-4.5) 10/25/17 21:13 Magnesium 1.9 mg/dL (1.6-2.6) 10/26/17 02:03 - VTE Documentation of Mechanical Device: Intermittent pneumatic compression device Consult Discharge Plan - Plan Referrals: Patria Joseph DO [Partnered Physician] - 11/30/17 11:15 am
[2017-11-03] MEDS: 0.9 % Sodium Chloride 500 ML IVC SCH (13:07)
[2017-11-03 15:15] VITALS: BP 135/67
--- NOTE | 2017-11-03 15:34 | Discharge Summary ---
Orders not resulted at time of discharge: Pending orders 11/02/17 06:00 ECG 12 lead ECG [ECG] AM 0600 11/04/17 04:00 BMP [Basic Metabolic Panel] AM 0400 Complete Blood Count w/o Diff [HEME] AM 0400 11/05/17 04:00 BMP [Basic Metabolic Panel] AM 0400 Complete Blood Count w/o Diff [HEME] AM 0400 Date of Encounter: 11/03/17 Time of Encounter: 12:30 - Discharge Diagnosis (1) Dyspnea Priority: Primary Status: Resolved Comments: Patient presented to the emergency department, admitted for dyspnea on exertion , orthopnea. Suspect patient has overloaded from renal disease. He did have resolution of her symptoms after dialysis and diuresis. Patient has improved. He reports that he is feeling better, is on room air, no respiratory distress. Qualifiers: Dyspnea type: dyspnea on exertion Qualified Code(s): R06.09 - Other forms of dyspnea (2) Diabetes mellitus type 2, insulin dependent Priority: Secondary Status: Chronic Comments: Continue home medications, accuchecks achs, diabetic diet, and basal insulin. (3) Elevated troponin Priority: Secondary Status: Chronic Comments: Troponins chronically elevated, secondary to CKD, CHF. Cardiology has evaluated the patient, he has historically refused ICD. The again discussed his risk of mortality with his history of ICM and low ejection fraction. Patient continues to decline ICD. Echocardiogram this admission shows an EF of 20-25% with severe global LV systolic function, indeterminant diastolic function, moderately dilated LV, mild MR, mild TR. IVC is dilated. Per cardiology note, we will consider starting anticoagulation in the outpatient setting. (4) Ischemic cardiomyopathy Priority: Secondary Status: Chronic Comments: Chronic. Stable. Lungs are clear and diminished. Lower extremity edema has resolved. Patient with mild BNP elevation on admission. Patient was treated with IV Lasix. He will return to his by mouth home dose. Plan as above. According to intake and output calculations, patient had significant fluid diuresis, does not appear to have lost significant weight. (5) Anemia Priority: Secondary Status: Chronic Comments: Hemoglobin has remained stable. He reports prior knowledge of iron deficiency anemia, states he has not been compliant with taking his medications. I will restart ferrous sulfate 325 mg by mouth twice a day prior to discharge. Patient also likely have anemia of chronic disease, CK D with dialysis, CHF. Qualifiers: Anemia type: unspecified type Qualified Code(s): D64.9 - Anemia, unspecified (6) DVT prophylaxis Priority: Secondary Status: Acute Comments: SCDs. (7) Atrial flutter Priority: Secondary Status: Acute Comments: New onset 10/26/17. Rate is controlled. . Has been seen by cardiology, we will discuss anticoagulation in the outpatient setting. Unable to start inpatient due to PD and HD catheter placement, as well as chronic anemia. Qualifiers: Atrial flutter type: unspecified Qualified Code(s): I48.92 - Unspecified atrial flutter (8) ESRD on dialysis Priority: Secondary Status: Chronic Comments: Serum creatinine and GFR has improved today. 3. Ht catheter placed , PD catheter was placed yesterday. Patient attends hemodialysis on Tuesday, Tuesday, Tuesday. Dialysis scheduled for tomorrow. HD yesterday as reflected with the improving renal function. Patient has been evaluated by nephrology, they recommend renal vitamins, avoid nephrotoxins, renally dosed medications. (9) Hypertension Priority: Secondary Status: Chronic Comments: Well-controlled. Continue home dose of beta kaylee. Follow with primary care. Qualifiers: Hypertension type: essential hypertension Qualified Code(s): I10 - Essential (primary) hypertension (10) Thrombocytopenia Priority: Secondary Status: Resolved (11) Urinary retention Priority: Secondary Status: Acute Comments: Pt reported to primary RN that he had not voided since 20:00 last pm. Bladder scan revealed 697ml urine in bladder. Pt has been seen by nephrology [facility] associate and they were aware of correa placement and retention. Pt will follow up with urology after discharge for void trial. Hospital course: Mr. Price is a 72 year old male with past medical history of end STEMI, CAD, end -stage renal disease on dialysis, atrial flutter, anemia, thrombocytopenia, ischemic cardiomyopathy. Patient presented to the emergency department for dyspnea on 10/26/17. He was seen in the nephrology office earlier that day, they recommended admission for possible dialysis, however, the patient refused. Later that day he presented to the emergency department. Patient reports increasing shortness of breath with exertion for the last month prior to admission, also complained of increased abdominal girth. Patient was evaluated by nephrology, at that time it was determined he would initiate HD when an HD catheter was placed on 11/01, PD catheter was placed on . Patient will have dialysis on Tuesday, Tuesday, Tuesday. His symptoms did improve with initial HD, as well as renal function slightly improved. Dyspnea most likely caused by fluid overload for renal disease. Patient was treated with HD, strict I and O, fluid restriction 1.5 L daily, and IV Lasix diuresis. Unsure of the accuracy, though patient appears to have diuresis approximately 13 L over the course of his visit. Patient also with mildly, flat, adynamic troponin elevation in the setting of end-stage renal disease. Patient also had elevated BNP. With diuresis and HD, states that he feels significantly better, bilateral lower extremity edema has resolved. He denies shortness of breath, orthopnea, dyspnea on exertion. During the admission he was evaluated by cardiology. Patient has prior history of ischemic cardiomyopathy with LVEF of approximately 25-30%. He will continue his beta kaylee, he has refused ICD placement several times, he refuses again this visit, as well. Patient reported that he had not urinated since prior to surgery/PD catheter insertion yesterday evening at about 8 PM. Bladder scan revealed approximately 700 mg of urine in his bladder. He was unable to void and Correa catheter was placed. He will be seen by urology on 11/14/17 for a void trial and further treatment. Patient will have dialysis tomorrow, he is anxious to go home. His labs and vitals are stable and within normal limits, patient is appropriate for discharge. Discharge discussed with: patient, family, nurse - Time Spent with Patient Total time spent providing and/or coordinating discharge services: Less than 30 minutes - Discharge Medications Prescriptions: Ferrous Sulfate 325 mg PO BID #60 tablet Sennosides/Docusate Sodium [Senna Plus] 1 each PO DAILY #30 tablet Home Medications: Atorvastatin [Lipitor] 40 mg PO HS 01/08/17 [History] Clopidogrel [Plavix] 75 mg PO DAILY 01/08/17 [History] Furosemide [Lasix] 40 mg PO DAILY 01/08/17 [History] Insulin Glargine [Lantus] 25 unit SQ HS 01/08/17 [History] Albuterol Sulfate [Ventolin Hfa] 2 puff IH Q4H PRN 10/25/17 [History] Calcitriol 0.5 mcg PO DAILY 10/25/17 [History] Insulin ASPART [Novolog Flexpen] 10 - 15 unit SQ TIDWM 10/25/17 [History] Metoprolol Succinate [Toprol Xl] 100 mg PO DAILY 10/25/17 [History] Sodium Bicarbonate 1,300 mg PO DAILY 10/25/17 [History] Ferrous Sulfate 325 mg PO BID #60 tablet 11/03/17 [Rx] Sennosides/Docusate Sodium [Senna Plus] 1 each PO DAILY #30 tablet 11/03/17 [Rx] Allergies/Adverse Reactions: 3 Allergy/AdvReac Type Severity Reaction Status Date / Time ragweed pollen Allergy Cough Verified 10/25/17 19:44 nifedipine AdvReac Dizzy & Verified 10/25/17 20:33 Irritable Date of admission: 10/28/17 07:48 Primary care physician: PCP NONE Consults: 10/29/17 10:30 Consult to Dialysis [CONS] ONCE 10/31/17 08:30 Consult to Dialysis [CONS] ONCE 10/31/17 10:15 Consult to Interventional Radiology [CONS] Routine Consulting Provider: Radiology Interventional [facility] Reason for Consult: Tunneled dialysis catheter Call Completed: Yes 10/31/17 10:50 Consult to Surgery [CONS] Routine Consulting Provider: Surgery [facility] Reason for Consult: Patient with ESRD who will transition from HD to PD. He needs a PD catheter placed. Plavix on hold for tunneled catheter placement today. Call Completed: No 11/02/17 08:30 Consult to Dialysis [CONS] ONCE Discharging clinician: Christin Garcia Anticipated date of discharge: 11/03/17 - Constitutional Vitals: Temp Pulse Resp BP Pulse Ox 97.8 F 63 16 135/67 93 11/03/17 15:14 11/03/17 15:14 11/03/17 15:14 11/03/17 15:14 11/03/17 15:14 General appearance: Present: cooperative, A&O X 3, morbidly obese, pleasant, no acute distress, answers questions appropriately - Head Head exam: Present: atraumatic, normal inspection, normocephalic - Eye Eye exam: Present: normal appearance, conjuntiva pink, sclera anicteric - Neck Neck exam general surgery: Present: supple, trachea midline. Absent: lymphadenopathy - Respiratory Respiratory exam: Present: CTAB. Absent: accessory muscle use, rales, rhonchi, wheezes - Cardiovascular Cardiovascular exam: Present: RRR, +S1, +S2. Absent: diastolic murmur, gallop, rubs, systolic murmur - GI/Abdominal GI/Abdominal exam: Present: distended, firm, normal bowel sounds, soft. Absent : tenderness - Extremities Exam Extremities exam: Present: normal capillary refill, normal inspection, warm, radial pulses palpable and symmetrical. Absent: calf tenderness, cyanotic, pedal edema, tenderness - Neurological Exam Neurological exam: Present: alert, oriented X3, no focal deficits. Absent: facial droop, speech deficit - Skin Skin exam: Present: dry, intact, normal color, warm. Absent: rash - Patient Status Disposition: Home, Self-Care Condition: Good Functional capacity at discharge: independent ambulation Overall status at discharge: patient is progressing back to baseline - Discharge Instructions Follow Up With: [facility] [Provider Group] - 11/14/17 8:30 am (This appointment will be with Dr. Uribe. ) Patria Joseph DO [Partnered Physician] - 11/30/17 11:15 am Additional Instructions: Please follow up with Dr Joseph and with urology as scheduled. Follow up with your PCP in the next 7-10 days for a recheck. Return to the ER if your symptoms return or worsen, or for any other problems or concerns. Resume your normal home medications and activities, diet as tolerated. - Diet and Activity Activity: increase activity as tolerated Diet: advance to your usual diet - VTE Documentation of Mechanical Device: Intermittent pneumatic compression device
== END 2017-11-03 17:59 | disposition home or self-care (01) | DRG 674 ==
LOC: 3BNU 19:31 → EMEROO 19:31 → 3BNU 23:13
PROVIDERS: ADMIT Family Medicine; ATTEND Registered Nurse
PROC: IRPERMA (2017-11-01 08:00)

== ENCOUNTER 2021-03-03 14:49 | Inpatient (IN) ==
[2021-03-03] MEDS ORDERED: Isovue-370 500 ML BOTTLE IVP ONE ×2 (15:20)
[2021-03-03] MEDS ORDERED: diazePAM 10 MG/2 ML SYRINGE IVP ONE (15:22)
[2021-03-03 15:51] LABS: Hematocrit 35.1 % (37.5-50.1); Hemoglobin 11.5 g/dL (12.9-16.9); Mean Corpuscular HGB Conc 32.8 g/dL (31.6-35.5); Mean Platelet Volume 9.5 fL (9.4-12.4); Red Cell Distribution Width 12.8 % (11.5-14.5)
[2021-03-03 15:52] LABS: Basophils % 0.5 %; Eosinophils # 0.2 K/mcL (0.0-0.6); Immature Granulocytes % 0.4 % (0-4); Immature Platelets 2.3 % (1.1-6.1); Lymphocytes # 0.7 K/mcL (0.6-4.6); Lymphocytes % 9.9 %; Mean Corpuscular Hemoglobin 29.6 pg (28.0-33.3); Mean Corpuscular Volume 90.2 fL (83.0-100.0); Monocytes # 0.5 K/mcL (0.0-1.3); Monocytes % 7.4 %; Platelet Count 109 K/mcL (140-400); Red Blood Count 3.89 M/mcL (4.19-5.50); Segmented Neutrophils % 78.8 %; White Blood Count 7.3 K/mcL (4.3-11.1)
[2021-03-03 15:53] LABS: Neutrophils # 5.8 K/mcL (1.6-8.9)
[2021-03-03 16:23] LABS: Albumin 3.5 g/dL (3.5-5.7); Albumin/Globulin Ratio 1.3 (1.1-2.2); Bilirubin,Direct 0.1 mg/dL (0.0-0.2); Bilirubin,Indirect 0.4 mg/dL (0.0-1.0); Bilirubin,Total 0.5 mg/dL (0.3-1.0); Calcium 10.4 mg/dL (8.6-10.3); Globulin 2.7 g/dL (2.4-3.5); Potassium 4.9 mEq/L (3.5-5.1); Total Protein 6.2 g/dL (6.4-8.9); Troponin I 0.13 ng/mL (< 0.04)
[2021-03-03] MEDS ORDERED: diazePAM 10 MG/2 ML SYRINGE IVP STA (16:41)
[2021-03-03 17:32] LABS: Bilirubin,Urine Negative (Negative); Blood,Urine Small (Negative); Clarity,Urine Clear (Clear); Color,Urine Light-Yellow (Yellow); Glucose,Urine (UA) 70 mg/dL (Normal); Ketones,Urine Negative (Negative); Leukocyte Esterase,Urine Small (Negative); Mucus,Urine Few per lpf (None-Few); Nitrite,Urine Negative (Negative); PH,Urine 6.5 pH Units (5.0-8.0); Protein,Urine >=300 mg/dL (Neg-Trace); Specific Gravity,Urine 1.013 (1.010-1.025); Urobilinogen,Urine Normal (Normal); WBC,Urine 15-30 per hpf (0-3)
[2021-03-03] MEDS ORDERED: Melatonin 3 MG TABLET PO PRN (19:54)
[2021-03-03] MEDS ORDERED: Naloxone 0.4 MG/ML INJ IVP PRN (19:54)
[2021-03-03] MEDS ORDERED: D5% in Water 1,000 ML IVC PRN (20:03)
[2021-03-03] MEDS ORDERED: *HR* Dextrose 50 % in Water (Vial) 50 ML VIAL IVP PRN (20:03)
[2021-03-03] MEDS ORDERED: Dextrose Gel 15 GM/37.5 ML TUBE PO PRN ×2 (20:03)
[2021-03-03] MEDS: Insulin LISPRO 300 UNITS/3 ML VIAL SUBQ SCH (21:13)
[2021-03-03] MEDS: Acetaminophen 325 MG TABLET PO PRN (21:20)
[2021-03-03] MEDS: cefTRIAXone 1,000 MG in Water for inj. (sterile) 10 ML IVP SCH (21:21)
[2021-03-03] MEDS ORDERED: *HR* HYDROcodone/Acet 5/325 mg TABLET PO ONE (21:36)
[2021-03-03] MEDS ORDERED: Perit. Dialysis with Dex 2.5 % 12,000 ML PERITONEAL STA (21:54)
[2021-03-03 22:57] LABS: Hemoglobin 11.9 g/dL (12.9-16.9); Mean Corpuscular HGB Conc 33.1 g/dL (31.6-35.5); Mean Corpuscular Hemoglobin 29.8 pg (28.0-33.3); Mean Platelet Volume 9.5 fL (9.4-12.4); Platelet Count 101 K/mcL (140-400); Red Cell Distribution Width 12.7 % (11.5-14.5); White Blood Count 8.1 K/mcL (4.3-11.1)
[2021-03-04 03:30] LABS: Hematocrit 32.5 % (37.5-50.1); Hemoglobin 10.9 g/dL (12.9-16.9); Mean Corpuscular HGB Conc 33.5 g/dL (31.6-35.5); Mean Corpuscular Hemoglobin 29.8 pg (28.0-33.3); Mean Corpuscular Volume 88.8 fL (83.0-100.0); Mean Platelet Volume 9.7 fL (9.4-12.4); Platelet Count 106 K/mcL (140-400); Red Blood Count 3.66 M/mcL (4.19-5.50); Red Cell Distribution Width 12.6 % (11.5-14.5); White Blood Count 6.2 K/mcL (4.3-11.1)
[2021-03-04 03:43] LABS: Albumin 3.5 g/dL (3.5-5.7); Albumin/Globulin Ratio 1.3 (1.1-2.2); Bilirubin,Total 0.5 mg/dL (0.3-1.0); Calcium 10.3 mg/dL (8.6-10.3); Globulin 2.8 g/dL (2.4-3.5); Potassium 4.5 mEq/L (3.5-5.1); Total Protein 6.3 g/dL (6.4-8.9)
[2021-03-04 04:08] LABS: Hepatitis B Surface Antibody < 3.10 mIU/mL
[2021-03-04 04:19] LABS: Hepatitis B Surface Antigen Nonreactive (Nonreactive)
[2021-03-04] MEDS: Metoprolol XL (24 HR) Succ 25 MG TAB.ER.24H PO SCH (08:30)
[2021-03-04] MEDS: Insulin LISPRO 300 UNITS/3 ML VIAL SUBQ SCH ×4 (08:30→20:55)
[2021-03-04] MEDS: Acetaminophen 325 MG TABLET PO PRN (08:30)
[2021-03-04] MEDS: Furosemide 40 MG TABLET PO SCH (08:30)
[2021-03-04] MEDS: cefTRIAXone 1,000 MG in Water for inj. (sterile) 10 ML IVP SCH (08:31)
[2021-03-04] MEDS: *HR* HYDROcodone/Acet 5/325 mg TABLET PO PRN ×4 (08:48→22:33)
[2021-03-04] MEDS: polyethylene glycoL 3350 17 GM POWD.PACK PO SCH ×2 (08:48→21:04)
[2021-03-04] MEDS: Sennosides/Docusate Sodium TABLET PO SCH ×2 (08:48→21:08)
[2021-03-04] MEDS ORDERED: Acetaminophen 325 MG TABLET PO PRN (12:59)
[2021-03-04] MEDS: Spironolactone 25 MG TABLET PO SCH (15:31)
[2021-03-04] MEDS ORDERED: Perit. Dialysis with Dex 2.5 % 12,000 ML PERITONEAL ONE (18:00)
[2021-03-04] MEDS: Insulin DETEMIR 100 UNIT/ML X5UNITS SUBQ SCH (21:04)
[2021-03-04] MEDS: Apixaban 5 MG TABLET PO SCH (21:04)
[2021-03-04] MEDS: Ondansetron 4 MG/2 ML VIAL IVP PRN (23:46)
[2021-03-05 01:37] LABS: Hematocrit 32.7 % (37.5-50.1); Hemoglobin 10.8 g/dL (12.9-16.9); Mean Corpuscular Hemoglobin 29.4 pg (28.0-33.3); Mean Corpuscular Volume 89.1 fL (83.0-100.0); Mean Platelet Volume 9.7 fL (9.4-12.4); Platelet Count 112 K/mcL (140-400); Red Blood Count 3.67 M/mcL (4.19-5.50); Red Cell Distribution Width 12.7 % (11.5-14.5); White Blood Count 6.7 K/mcL (4.3-11.1)
[2021-03-05 01:55] LABS: Magnesium 1.9 mg/dL (1.6-2.6); Phosphorous 9.6 mg/dL (2.7-4.5); Potassium 4.4 mEq/L (3.5-5.1)
[2021-03-05] MEDS: Insulin LISPRO 300 UNITS/3 ML VIAL SUBQ SCH ×4 (07:54→22:35)
[2021-03-05] MEDS: Ondansetron 4 MG/2 ML VIAL IVP PRN (07:59)
[2021-03-05] MEDS ORDERED: cefTRIAXone 1,000 MG in 0.9 % Sodium Chloride Mini Bag 100 ML IVP SCH (09:00)
[2021-03-05] MEDS: Sennosides/Docusate Sodium TABLET PO SCH ×2 (09:53→21:23)
[2021-03-05] MEDS: Metoprolol XL (24 HR) Succ 25 MG TAB.ER.24H PO SCH (09:53)
[2021-03-05] MEDS: Apixaban 5 MG TABLET PO SCH ×2 (09:53→21:25)
[2021-03-05] MEDS: polyethylene glycoL 3350 17 GM POWD.PACK PO SCH ×2 (09:53→21:25)
[2021-03-05] MEDS: Furosemide 40 MG TABLET PO SCH (09:54)
[2021-03-05] MEDS: Spironolactone 25 MG TABLET PO SCH (09:54)
[2021-03-05] MEDS ORDERED: *HR* Promethazine 25 MG/ML VIAL IM PRN (11:31)
[2021-03-05] MEDS: *HR* HYDROcodone/Acet 5/325 mg TABLET PO PRN ×3 (12:08→21:33)
[2021-03-05] MEDS ORDERED: Perit. Dialysis with Dex 2.5 % 12,000 ML PERITONEAL ONE (19:00)
[2021-03-05] MEDS ORDERED: Gentamicin Oint 15 GM TUBE TP SCH (19:00)
[2021-03-05] MEDS: Insulin DETEMIR 100 UNIT/ML X5UNITS SUBQ SCH (21:25)
[2021-03-06 08:07] VITALS: BP 116/56; PULSE 60; TEMP 97.8; O2SAT 95
[2021-03-06] MEDS: Insulin LISPRO 300 UNITS/3 ML VIAL SUBQ SCH ×2 (08:17→10:32)
[2021-03-06] MEDS: Sennosides/Docusate Sodium TABLET PO SCH (08:21)
[2021-03-06] MEDS: Spironolactone 25 MG TABLET PO SCH (08:21)
[2021-03-06] MEDS: Apixaban 5 MG TABLET PO SCH (08:21)
[2021-03-06] MEDS: Metoprolol XL (24 HR) Succ 25 MG TAB.ER.24H PO SCH (08:21)
[2021-03-06] MEDS: Furosemide 40 MG TABLET PO SCH (08:21)
[2021-03-06] MEDS: polyethylene glycoL 3350 17 GM POWD.PACK PO SCH (08:22)
[2021-03-06] MEDS: *HR* HYDROcodone/Acet 5/325 mg TABLET PO PRN (09:31)
[2021-03-06 11:19] LABS: Hematocrit 32.9 % (37.5-50.1); Hemoglobin 10.9 g/dL (12.9-16.9); Mean Corpuscular HGB Conc 33.1 g/dL (31.6-35.5); Mean Corpuscular Hemoglobin 29.9 pg (28.0-33.3); Mean Corpuscular Volume 90.1 fL (83.0-100.0); Mean Platelet Volume 9.7 fL (9.4-12.4); Platelet Count 101 K/mcL (140-400); Red Blood Count 3.65 M/mcL (4.19-5.50); Red Cell Distribution Width 12.9 % (11.5-14.5); White Blood Count 6.1 K/mcL (4.3-11.1)
[2021-03-06 11:39] LABS: Calcium 9.4 mg/dL (8.6-10.3); Magnesium 2.1 mg/dL (1.6-2.6); Phosphorous 9.3 mg/dL (2.7-4.5); Potassium 4.4 mEq/L (3.5-5.1)
== END 2021-03-06 13:30 | disposition home or self-care (01) | DRG 689 ==
LOC: EMEROOARM 14:49 → 2ANU 14:49 → SUATTDRO 19:11 → 2ANU 20:18
PROVIDERS: ADMIT Internal Medicine; ATTEND Internal Medicine

== ENCOUNTER 2021-04-26 22:49 | Inpatient (IN) ==
[2021-04-26 23:56] LABS: Basophils # 0.1 K/mcL (0.0-0.2); Basophils % 0.7 %; Eosinophils # 0.2 K/mcL (0.0-0.6); Hematocrit 32.3 % (37.5-50.1); Hemoglobin 10.5 g/dL (12.9-16.9); Immature Granulocytes % 0.3 % (0-4); Lymphocytes # 0.9 K/mcL (0.6-4.6); Lymphocytes % 13.2 %; Mean Corpuscular HGB Conc 32.5 g/dL (31.6-35.5); Mean Corpuscular Hemoglobin 30.1 pg (28.0-33.3); Mean Corpuscular Volume 92.6 fL (83.0-100.0); Mean Platelet Volume 9.3 fL (9.4-12.4); Monocytes # 0.5 K/mcL (0.0-1.3); Monocytes % 7.4 %; Neutrophils # 5.2 K/mcL (1.6-8.9); Platelet Count 103 K/mcL (140-400); Red Blood Count 3.49 M/mcL (4.19-5.50); Red Cell Distribution Width 14.4 % (11.5-14.5); Segmented Neutrophils % 75.4 %; White Blood Count 6.9 K/mcL (4.3-11.1)
[2021-04-27 00:12] LABS: Calcium 9.4 mg/dL (8.6-10.3); Potassium 4.4 mEq/L (3.5-5.1)
[2021-04-27 00:17] LABS: Troponin I 0.4 ng/mL (< 0.04)
[2021-04-27] MEDS ORDERED: Aspirin 81 MG TAB.CHEW PO ONE (00:23)
[2021-04-27] MEDS ORDERED: Furosemide 40 MG/4 ML VIAL IVP ONE (00:28)
[2021-04-27] MEDS ORDERED: Naloxone 0.4 MG/ML INJ IVP PRN (04:47)
[2021-04-27] MEDS ORDERED: *HR* Promethazine 25 MG/ML VIAL IM PRN (04:47)
[2021-04-27] MEDS ORDERED: Melatonin 3 MG TABLET PO PRN (04:47)
[2021-04-27] MEDS ORDERED: Ondansetron 4 MG/2 ML VIAL IVP PRN (04:47)
[2021-04-27] MEDS ORDERED: Acetaminophen 325 MG TABLET PO PRN (04:47)
[2021-04-27] MEDS ORDERED: D5% in Water 1,000 ML IVC PRN (05:41)
[2021-04-27] MEDS ORDERED: *HR* Dextrose 50 % in Water (Syg) 50 ML SYRINGE IVP PRN (05:41)
[2021-04-27] MEDS ORDERED: Dextrose Gel 15 GM/37.5 ML TUBE PO PRN ×2 (05:41)
[2021-04-27 06:23] LABS: Basophils # 0.1 K/mcL (0.0-0.2); Basophils % 0.9 %; Eosinophils # 0.3 K/mcL (0.0-0.6); Eosinophils % 3.2 %; Hematocrit 35.5 % (37.5-50.1); Hemoglobin 11.2 g/dL (12.9-16.9); Immature Granulocytes % 0.2 % (0-4); Lymphocytes # 1.8 K/mcL (0.6-4.6); Lymphocytes % 22.5 %; Mean Corpuscular HGB Conc 31.5 g/dL (31.6-35.5); Mean Corpuscular Hemoglobin 29.7 pg (28.0-33.3); Mean Corpuscular Volume 94.2 fL (83.0-100.0); Mean Platelet Volume 9.3 fL (9.4-12.4); Monocytes # 0.7 K/mcL (0.0-1.3); Monocytes % 8.3 %; Neutrophils # 5.2 K/mcL (1.6-8.9); Platelet Count 103 K/mcL (140-400); Red Blood Count 3.77 M/mcL (4.19-5.50); Red Cell Distribution Width 14.6 % (11.5-14.5); Segmented Neutrophils % 64.9 %; White Blood Count 8.1 K/mcL (4.3-11.1)
[2021-04-27 06:32] LABS: INR 1.5; Prothrombin Time 16.9 Seconds (9.4-12.1)
[2021-04-27 06:42] LABS: Albumin 3.8 g/dL (3.5-5.7); Albumin/Globulin Ratio 1.4 (1.1-2.2); Bilirubin,Total 0.8 mg/dL (0.3-1.0); Calcium 9.8 mg/dL (8.6-10.3); Globulin 2.7 g/dL (2.4-3.5); Potassium 3.8 mEq/L (3.5-5.1); Total Protein 6.5 g/dL (6.4-8.9)
[2021-04-27] MEDS ORDERED: Perflutren Lipid Microsphere 1.3 ML in 0.9 % Sodium Chloride 8.7 ML IVP PRN (07:35)
[2021-04-27] MEDS: Insulin LISPRO 300 UNITS/3 ML VIAL SUBQ SCH ×6 (09:38→21:09)
[2021-04-27] MEDS: Aspirin 81 MG TAB.CHEW PO SCH (09:50)
[2021-04-27] MEDS: Sacubitril/Valsartan 24/26 MG 1 TABLET PO SCH ×2 (09:56→21:09)
[2021-04-27] MEDS: Spironolactone 25 MG TABLET PO SCH (09:56)
[2021-04-27] MEDS: Metoprolol XL (24 HR) Succ 50 MG TAB.ER.24H PO SCH (09:56)
[2021-04-27 10:58] LABS: Protein/Creatinine Ratio,Urine 3.01 mg/mg (0.00-0.20); Sodium, Urine 55.1 mEq/L
[2021-04-27 11:52] LABS: Bacteria,Urine Few per hpf (None-Few); Bilirubin,Urine Negative (Negative); Blood,Urine Large (Negative); Clarity,Urine Turbid (Clear); Color,Urine Light-Orange (Yellow); Glucose,Urine (UA) 50 mg/dL (Normal); Ketones,Urine Negative (Negative); Leukocyte Esterase,Urine Moderate (Negative); Nitrite,Urine Negative (Negative); PH,Urine 6.5 pH Units (5.0-8.0); Protein,Urine >=300 mg/dL (Neg-Trace); RBC,Urine TNTC per hpf (0-3); Specific Gravity,Urine 1.012 (1.010-1.025); Squamous Epithelial Cell,Urine Few per hpf (None-Few); Urobilinogen,Urine Normal (Normal); WBC,Urine 50-100 per hpf (0-3)
[2021-04-27 17:15] LABS: Hepatitis B Surface Antibody < 3.10 mIU/mL
[2021-04-27 17:26] LABS: Hepatitis B Surface Antigen Nonreactive (Nonreactive)
[2021-04-27] MEDS: *HR* HYDROcodone/Acet 5/325 mg TABLET PO PRN (17:29)
[2021-04-27] MEDS ORDERED: cefTRIAXone 1,000 MG in 0.9 % Sodium Chloride Mini Bag 100 ML IVPB SCH (18:00)
[2021-04-27] MEDS: calcitrioL 0.25 MCG CAPSULE PO SCH (18:30)
[2021-04-27] MEDS ORDERED: Perit. Dialysis with Dex 2.5 % 12,000 ML PERITONEAL ONE (19:00)
[2021-04-27] MEDS ORDERED: Insulin DETEMIR 100 UNIT/ML X5UNITS SUBQ SCH (21:00)
[2021-04-28] MEDS: *HR* HYDROcodone/Acet 5/325 mg TABLET PO PRN ×2 (00:08→20:36)
[2021-04-28 01:42] LABS: Basophils % 0.6 %; Eosinophils # 0.2 K/mcL (0.0-0.6); Eosinophils % 2.5 %; Hematocrit 30.7 % (37.5-50.1); Immature Granulocytes % 0.3 % (0-4); Immature Platelets 1.3 % (1.1-6.1); Lymphocytes # 0.9 K/mcL (0.6-4.6); Lymphocytes % 13.9 %; Mean Corpuscular HGB Conc 32.6 g/dL (31.6-35.5); Mean Corpuscular Hemoglobin 30.7 pg (28.0-33.3); Mean Corpuscular Volume 94.2 fL (83.0-100.0); Mean Platelet Volume 9.6 fL (9.4-12.4); Monocytes # 0.6 K/mcL (0.0-1.3); Neutrophils # 4.6 K/mcL (1.6-8.9); Platelet Count 109 K/mcL (140-400); Red Blood Count 3.26 M/mcL (4.19-5.50); Red Cell Distribution Width 14.5 % (11.5-14.5); Segmented Neutrophils % 72.7 %; White Blood Count 6.4 K/mcL (4.3-11.1)
[2021-04-28 01:59] LABS: Calcium 9.5 mg/dL (8.6-10.3); Phosphorous 6.2 mg/dL (2.7-4.5)
[2021-04-28] MEDS: Metoprolol XL (24 HR) Succ 50 MG TAB.ER.24H PO SCH (08:05)
[2021-04-28] MEDS: Sacubitril/Valsartan 24/26 MG 1 TABLET PO SCH ×2 (08:05→20:36)
[2021-04-28] MEDS: Spironolactone 25 MG TABLET PO SCH (08:05)
[2021-04-28] MEDS: Aspirin 81 MG TAB.CHEW PO SCH (08:05)
[2021-04-28] MEDS: Sennosides/Docusate Sodium TABLET PO PRN (08:05)
[2021-04-28] MEDS: Insulin LISPRO 300 UNITS/3 ML VIAL SUBQ SCH ×4 (08:05→20:37)
[2021-04-28] MEDS ORDERED: Apixaban 5 MG TABLET PO SCH (12:15)
[2021-04-28] MEDS: Apixaban 5 MG TABLET PO SCH ×2 (13:24→20:36)
[2021-04-28] MEDS: Calcium Acetate 667 MG CAPSULE PO SCH (18:11)
[2021-04-28] MEDS ORDERED: Perit. Dialysis with Dex 2.5 % 12,000 ML PERITONEAL ONE (19:00)
[2021-04-29 03:10] LABS: Hemoglobin 9.3 g/dL (12.9-16.9)
[2021-04-29 03:12] LABS: Basophils % 0.6 %; Eosinophils # 0.2 K/mcL (0.0-0.6); Eosinophils % 3.7 %; Hematocrit 28.7 % (37.5-50.1); Immature Granulocytes % 0.2 % (0-4); Immature Platelets 1.5 % (1.1-6.1); Lymphocytes % 18.5 %; Mean Corpuscular HGB Conc 32.4 g/dL (31.6-35.5); Mean Corpuscular Volume 92.6 fL (83.0-100.0); Mean Platelet Volume 9.4 fL (9.4-12.4); Monocytes # 0.6 K/mcL (0.0-1.3); Monocytes % 10.1 %; Neutrophils # 3.6 K/mcL (1.6-8.9); Platelet Count 107 K/mcL (140-400); Red Cell Distribution Width 14.2 % (11.5-14.5); Segmented Neutrophils % 66.9 %; White Blood Count 5.4 K/mcL (4.3-11.1)
[2021-04-29 03:27] LABS: Calcium 9.2 mg/dL (8.6-10.3); Magnesium 1.9 mg/dL (1.6-2.6); Phosphorous 6.5 mg/dL (2.7-4.5)
[2021-04-29 07:47] VITALS: PULSE 71; TEMP 98; O2SAT 98
[2021-04-29] MEDS: Insulin LISPRO 300 UNITS/3 ML VIAL SUBQ SCH (08:20)
[2021-04-29] MEDS: Aspirin 81 MG TAB.CHEW PO SCH (08:27)
[2021-04-29] MEDS: Apixaban 5 MG TABLET PO SCH (08:27)
[2021-04-29] MEDS: calcitrioL 0.25 MCG CAPSULE PO SCH (08:27)
[2021-04-29] MEDS: Calcium Acetate 667 MG CAPSULE PO SCH (08:27)
[2021-04-29] MEDS: Metoprolol XL (24 HR) Succ 50 MG TAB.ER.24H PO SCH (08:27)
[2021-04-29] MEDS: Sacubitril/Valsartan 24/26 MG 1 TABLET PO SCH (08:27)
[2021-04-29] MEDS: Spironolactone 25 MG TABLET PO SCH (08:27)
[2021-04-29] MEDS: Sennosides/Docusate Sodium TABLET PO PRN (08:31)
[2021-04-29 08:55] VITALS: BP 104/77
[2021-04-29] MEDS: *HR* HYDROcodone/Acet 5/325 mg TABLET PO PRN (08:56)
== END 2021-04-29 12:28 | disposition home or self-care (01) | DRG 280 ==
LOC: 2ANU 22:49 → EMEROOARM 22:49 → 2ANU 04-27 03:20 → SUATTDRO 04-28 14:17
PROVIDERS: ADMIT Family Medicine; ATTEND Student in an Organized Health Care Education/Training Program